=== PATIENT | female | born 1945 | race Caucasian/White ===

== ENCOUNTER → 2019-08-24 15:02 | Outpatient (BNVA) | payer MEDICARE, BC, SELFPAY | PROVIDERS: Family Provider Internal Medicine; PCP Internal Medicine; Referring Provider Internal Medicine Rheumatology; Visit Provider Internal Medicine Rheumatology | DX: M05.9 Rheumatoid arthritis with rheumatoid factor, unspecified (principal) | CPT/HCPCS: 82565; 84460; 85025; 85651; 86140 ==

== ENCOUNTER → 2019-08-27 09:21 | Outpatient (BNVA) | payer MEDICARE, BC, SELFPAY | PROVIDERS: Family Provider Internal Medicine; PCP Internal Medicine; Referring Provider Emergency Medicine; Visit Provider Internal Medicine Rheumatology | DX: M05.79 Rheumatoid arthritis with rheumatoid factor 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 or systems involvement (principal); Z79.52 Long term (current) use of systemic steroids; Z79.899 Other long term (current) drug therapy | CPT/HCPCS: 99214 ==

== ENCOUNTER 2019-10-26 08:14 | Outpatient (CLI) | payer MEDICARE, BC, SELFPAY ==
--- NOTE | 2019-10-26 08:19 | MM_ITS ---
WS: [id number] BILATERAL DIGITAL SCREENING MAMMOGRAPHY WITH CAD CLINICAL INFORMATION: SCREENING HISTORY: Screening mammogram. No current complaints. COMPARISON: None. TECHNIQUE: Bilateral CC and MLO views. FINDINGS: Scattered fibroglandular densities bilaterally. [facility] center calcifications right breast. Vascular c alcification. No suspicious focal mass, asymmetry, calcifications, or architectural distortion. No ev idence of malignancy. MM/[id number] IMPRESSION: BI-RADS: 2-Benign FOLLOW UP: 1 Year Follow-up Recommend return to annual screening mammography.
== END 2019-10-26 08:15 | disposition home or self-care (01) ==
LOC: RADSHAW 08:14
PROVIDERS: Family Provider Internal Medicine; PCP Internal Medicine; Visit Provider Internal Medicine
DX: Z12.31 Encounter for screening mammogram for malignant neoplasm of breast (principal)
CPT/HCPCS: 77067

== ENCOUNTER → 2019-12-31 13:23 | Outpatient (BNVA) | payer MEDICARE, BC, SELFPAY | PROVIDERS: Family Provider Internal Medicine; PCP Internal Medicine; Visit Provider Internal Medicine Rheumatology | DX: Z79.899 Other long term (current) drug therapy (principal); Z11.59 Encounter for screening for other viral diseases; Z11.1 Encounter for screening for respiratory tuberculosis; Z72.89 Other problems related to lifestyle | CPT/HCPCS: 36415; 80076; 82565; 85025; 85651; 86140; 86480; 86803 ==

== ENCOUNTER → 2020-02-25 12:56 | Outpatient (BNVA) | payer MEDICARE, SELFPAY | PROVIDERS: Family Provider Internal Medicine; PCP Internal Medicine; Visit Provider Internal Medicine Rheumatology | DX: M05.79 Rheumatoid arthritis with rheumatoid factor 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 or systems involvement (principal); Z79.899 Other long term (current) drug therapy | CPT/HCPCS: 99214 ==

== ENCOUNTER 2020-03-07 14:26 | Outpatient (CLI) | payer MEDICARE, BC, SELFPAY ==
--- NOTE | 2020-03-07 14:32 | XR_ITS ---
WS: [id number] SCREENING DEXA SCAN nap- Naturally Attached Parents CLINICAL INFORMATION: ASYMPTOMATIC POSTMENOPAUSAL STATUS COMPARISON: None. FINDINGS: The L1-L4 bone mineral density measures 1.116 g/cm2. This corresponds to a T score score of -0.5 and Z score of 1.2. Left femoral neck bone mineral density measures 0.989 g/cm2. This corresponds to a T score of -0.2 an d Z score of 1.6. Right femoral neck bone mineral density measures 0.956 g/cm2. This corresponds to a T score -0.4of an d Z score of 1.3. Mean femoral neck bone mineral density measures 0.972 g/cm2. This corresponds to a T score of -0.3 an d Z score of 1.4. XR/XR DEXA axial skeleton* [id number] IMPRESSION: Normal bone mineralization. Patient's FRAX calculated 10 year probability for major osteoporotic fracture i s 25.8 % and osteoporotic hip fracture is 8.2%.
== END 2020-03-07 14:27 | disposition home or self-care (01) ==
LOC: RADWPI 14:30
PROVIDERS: Family Provider Internal Medicine; PCP Internal Medicine; Visit Provider Internal Medicine
DX: Z78.0 Asymptomatic menopausal state (principal)
CPT/HCPCS: 77080

== ENCOUNTER → 2020-05-24 09:59 | Outpatient (BNVA) | payer MEDICARE, BC, SELFPAY | PROVIDERS: Family Provider Internal Medicine; PCP Internal Medicine; Visit Provider Internal Medicine Rheumatology | DX: Z79.899 Other long term (current) drug therapy (principal); M05.79 Rheumatoid arthritis with rheumatoid factor 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 or systems involvement | CPT/HCPCS: 36415; 80076; 82565; 85025; 85651; 86140 ==

== ENCOUNTER → 2020-07-04 11:51 | Outpatient (BNVA) | payer MEDICARE, BC, SELFPAY | PROVIDERS: Family Provider Internal Medicine; PCP Internal Medicine; Visit Provider Internal Medicine Rheumatology | DX: M05.79 Rheumatoid arthritis with rheumatoid factor 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 or systems involvement (principal); Z79.899 Other long term (current) drug therapy; Z87.891 Personal history of nicotine dependence | CPT/HCPCS: 99213 ==

== ENCOUNTER 2020-12-08 10:31 | Outpatient (CLI) | payer MEDICARE, BC, SELFPAY ==
--- NOTE | 2020-12-08 10:41 | MM_ITS ---
WS: [id number] BILATERAL SCREENING DIGITAL MAMMOGRAM WITH CAD HISTORY: SCREENING COMPARISON: 10/26/2019 Bilateral CC and MLO views submitted. Computer aided detection analyzed. Breast composition: There are scattered areas of fibroglandular density. No suspicious masses, microc alcifications or architectural distortion. Stable calcifications and fibroglandular pattern. MM/[id number] IMPRESSION: BI-RADS: 2-Benign FOLLOW UP: 1 Year Follow-up
== END 2020-12-08 10:32 | disposition home or self-care (01) ==
LOC: RADSHAW 10:39
PROVIDERS: PCP Internal Medicine; Visit Provider Internal Medicine
DX: Z12.31 Encounter for screening mammogram for malignant neoplasm of breast (principal)
CPT/HCPCS: 77067

== ENCOUNTER → 2021-01-02 13:20 | Outpatient (BNVA) | payer MEDICARE, BC, SELFPAY | PROVIDERS: PCP Internal Medicine; Visit Provider Internal Medicine Rheumatology | DX: M05.79 Rheumatoid arthritis with rheumatoid factor 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 or systems involvement (principal); Z79.899 Other long term (current) drug therapy; Z87.891 Personal history of nicotine dependence | CPT/HCPCS: 99214 ==

== ENCOUNTER 2021-02-03 09:34 | Outpatient (CLI) | payer MEDICARE, BC, SELFPAY ==
--- NOTE | 2021-02-03 09:50 | CT_ITS ---
WS: [id number] CT NECK WITH CONTRAST HISTORY: NECK MASS TECHNIQUE: Contiguous 5 mm axial images are performed through the neck with intravenous contrast. Sag ittal and coronal reformats are also submitted. All CT scans at [facility] use at least o ne of these dose optimization techniques: automated exposure control; mA and/or kV adjustment per pat ient size (includes targeted exams where dose is matched to clinical indication); or iterative recons truction. CONTRAST: CONTRAST: Omnipaque 300; 95 mL IV. DLP: 982.76 mGycm COMPARISON: None available. There are multiple small calcifications identified bilaterally in the palatine tonsils. No significan t enlargement of the tonsils. There is mild heterogeneity with a few cystic areas in the palatine ton sils. No adjacent inflammation. Otherwise no mass at the tongue base or in the oropharynx. Torus tubarius and fossa of Rosenmuller and parapharyngeal fat are normal. No significant lymphadenopathy is identified. Normal size thyroid. There are small subcentimeter nodules within each thyroid. Palpable marker is placed adjacent to the inferior RIGHT parotid gland. There is mild hypervascularit y and enhancement throughout the RIGHT parotid gland which is asymmetric to the LEFT. No discrete mas s is identified. Not a lot of adjacent inflammation but the RIGHT parotid is slightly larger than the LEFT. No osseous abnormalities. Visualized portions of the skull base demonstrate no abnormalities. Orbits and globes are within norm al limits. No soft tissue masses. Mild calcification in the intracranial extracranial carotid arterie s. Visualized paranasal sinuses and mastoid air cells are normal. Lung apices are clear. CT/CT neck w con* [id number] IMPRESSION: 1. Very mild enlargement with increased enhancement involving the RIGHT paroti d gland. No focal mass or adjacent adenopathy. Consider parotiditis. This may b e viral or bacterial or autoimmune immune in etiology. No mass identified. 2. Bilateral palatine tonsillitis with mild heterogeneity in the palatine tons ils. This is probably related to prior episodes of infection with calcification s developing in the crypts. Due to the mild heterogeneity in the tonsils consid er direct visualization to be sure there is no underlying early neoplasm. 3. No adenopathy. 4. Subcentimeter bilateral thyroid nodules.
[2021-02-03] MEDS: iodixanol 320 mg/mL 100mL Btl IV (10:15)
== END 2021-02-03 09:35 | disposition home or self-care (01) ==
PROVIDERS: PCP Internal Medicine; Visit Provider Internal Medicine
DX: R22.1 Localized swelling, mass and lump, neck (principal); E04.2 Nontoxic multinodular goiter; J03.90 Acute tonsillitis, unspecified
CPT/HCPCS: 70491; Q9967

== ENCOUNTER → 2021-04-03 13:49 | Outpatient (BNVA) | payer MEDICARE, BC, SELFPAY | PROVIDERS: PCP Internal Medicine; Visit Provider Internal Medicine Rheumatology | DX: M05.79 Rheumatoid arthritis with rheumatoid factor 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 or systems involvement (principal); Z79.899 Other long term (current) drug therapy; Z71.89 Other specified counseling | CPT/HCPCS: 36415; 80076; 82565; 85025; 86140 ==

== ENCOUNTER 2021-06-10 16:56 | Observation (INO) | payer MEDICARE, BC, SELFPAY ==
[2021-06-10 17:02] VITALS: BP 162/80; PULSE 80; RESP 22; O2SAT 97; BMI 25.7
--- NOTE | 2021-06-10 17:08 | CTR_ITS ---
PROCEDURE INFORMATION: Exam: CT Head Without Contrast Exam date and time: 06/10/2021 5:08 PM Age: 75 years old Clinical indication: Other: Weakness; Additional info: Stroke alert TECHNIQUE: Imaging protocol: Computed tomography of the head without contrast. Radiation optimization: All CT scans at this facility use at least one of these dose optimization techniques: automated exposure control; mA and/or kV adjustment per patient size (includes targeted exams where dose is matched to clinical indication); or iterative reconstruction. Other technique: STROKE PROTOCOL was implemented. COMPARISON: MR head wo con* [id number] 07/15/2018 9:03 AM RADIATION DOSE METRICS: Total DLP (mGy-cm): 790.53 FINDINGS: Brain: Mild diffuse cortical volume loss. Moderate hypodensities in supratentorial periventricular and subcortical white matter, consistent with microangiopathy. No intracranial hemorrhage. Cerebral ventricles: No ventriculomegaly. Paranasal sinuses: Visualized sinuses are unremarkable. No fluid levels. Mastoid air cells: Visualized mastoid air cells are well aerated. Vasculature: No hyperdense artery. Bones/joints: Unremarkable. No acute fracture. Soft tissues: Unremarkable. CT/CT head wo con* [id number] IMPRESSION: 1. No acute intracranial abnormality. ASSESSMENT: ASPECTS ([place] Stroke Program Early CT Score) is 10. Radiation Dose CTDIVOL = (mGy): DLP = 790.53 (mGy-cm)
--- NOTE | 2021-06-10 17:14 | ECG_ITS ---
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 Measurements Intervals [place] Rate: 81 P: 62 NV: 162 QRS: 31 QRSD: 96 T: 62 QT: 375 QTc: 437 Interpretive Statements SINUS RHYTHM WITH OCCASIONAL ECTOPIC PREMATURE COMPLEXES POSSIBLE LEFT ATRIAL ENLARGEMENT [-0.1mV P-WAVE IN V1/V2] ANTEROSEPTAL MYOCARDIAL INFARCTION , OF INDETERMINATE AGE [40+ ms Q WAVE IN V1-V4] Compared to ECG 05/20/2018 18:57:12 Ventricular premature complex(es) no longer present T-wave abnormality no longer present Possible ischemia no longer present Myocardial infarct finding still present Electronically Signed On 06-11-2021 0:27:25 CDT by Moses Posada M.D. [id number]
[2021-06-10 17:15] LABS: Glucose Point of Care 94 mg/dL (70-110)
--- NOTE | 2021-06-10 17:24 | ED_ITS ---
HPI - General Adult General: Chief complaint: Neuro Symptoms/Deficit Stated complaint: NEURO SX Time Seen by Provider: 06/10/21 16:58 History of Present Illness: HPI narrative: CC: L sided facial droop, slurring of speech and L sided weakness HPI: [75]yo patient w/ hx of HTN, prior CVA prsenting to the ED for acute transient L sided weakness, L facial droop and and slurring of speech since 11am. On arrival, patient's ymptoms have resolved Denies any chest pain, SOB, palpitations, /GI complaints. Patient is not on any anticoagulation. Onset: 11 am ago Duration: intermittent Location: home Severity: severe Review of Systems Narrative: Constitutional: No fever, no chills. HEENT: No vision changes CV: No chest pain, no palpitations PULM: No cough, no dyspnea. GI: No abdominal pain, no N/V/D. : No dysuria MSKEL: No edema SKIN: No new rashes, no lesions. NEURO: Transient L sided weakness/ L facial droop HEME: No visible bruises PSYCH: Normal mood PFSH ED PFSH: Medical History CAD (coronary artery disease) Dyslipidemia Encounter for screening for other viral diseases High risk medication use Immunization counseling Ischemic cardiomyopathy Myocardial infarction Rheumatoid arthritis with rheumatoid factor 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 or systems involvement Surgical History H/O bilateral cataract extraction H/O: hysterectomy Hx of cholecystectomy Stented coronary artery Family History Other Diabetes Family history of premature coronary artery disease Rheumatoid arthritis Denies family history of Chronic kidney disease (CKD) Systemic lupus erythematosus (SLE) in adult Cancer Hypertension Stroke Social History Smoking and tobacco status: former smoker Quit status (tobacco): has quit using tobacco Year quit tobacco: 2020 Former quit date comment: 0.5 PPD X 30 YEARS Alcohol intake: current History of recent travel: Yes (07/26-08/05) Physical Exam Narrative: EXAM NARRATIVE: Head: Atraumatic Eyes: PERRL, conjunctiva without injection ENT: Mucous membrane moist NECK: Supple without lymphadenopathy LUNGS: CTA CV: RRR ABDOMEN: Soft, nontender EXTREMITY: Normal ROM SKIN: No rash or erythema NEURO: NIHSS: 1. Level of Consciousness A) LOC Responsiveness 0 B) LOC Questions 0 C) LOC Commands 0 2. Horizontal Eye Movement 0 3. Visual field test 0 4. Facial Palsy 0 5. Motor Arm 0 6. Motor Leg 0 7. Limb Ataxia 0 9. Language 0 10. Speech 0 11. Extinction and Inattention 0 PSYCH: Normal mood and affect. Course Vital Signs: Vital signs: Vital Signs Temperature 98.1 F 06/11/21 12:00 Pulse Rate 61 06/11/21 12:00 Respiratory Rate 16 06/11/21 12:00 Blood Pressure 122/67 06/11/21 12:00 Pulse Oximetry 97 06/11/21 12:00 MDM - General Adult MDM Narrative: Medical decision making narrative: [75]yo patient w/ pMH of DM, prior CVA BIBA for concerns of transient focal neurological deficit including L sided weakness/L facial droop/L slurring of speech. Presentation concerning for possible ischemic stroke requiring workup. Given History and Exam I have lower suspicion for infectious etiology, neurologic changes secondary to toxicologic ingestion, seizure, complex migraine. Workup include: POC glucose, CBC, BMP, LFTs, Troponin, PT/INR, PTT, Type and Screen. Other Diagnostics: ECG, CT brain EKG without evidence of STEMI or ischemia, fingerstick BS not hypoglycemic, and clinical picture does not suggest other stroke mimic. Plan to workup for TIA Lab Findings and workup [6:02] On reassessment, patient continues to remain symptom free. Disposition: Admission to Neurology with MRI brain/MRA head/neck Lab Data: Labs: Lab Results 06/10/21 06/10/21 06/10/21 10: 17:12 17:28 WBC 7.9 10^3/uL 10^3/ uL (4.0-10.0) RBC 4.56 10^6/uL 10^6 /uL (4.1-5.3) Hgb 13.7 g/dL g/dL (11.5-15.3) Hct 42.2 % % (37.0-47.0) MCV 92.5 fl fl (81-99) MCH 30.0 pg pg (28.0-34.0) MCHC 32.5 g/dL g/dL (30.0-36.0) RDW 13.2 % % (12.1-15.1) Plt Count 280 10^3/cmm 10^3 /cmm (130-400) MPV 9.9 fL fL (7.4-10.4) Neut % (Auto) 54.7 % % Lymph % (Auto) 35.2 % % Taliaferro % (Auto) 7.4 % % Eos % (Auto) 1.9 % % Baso % (Auto) 0.5 % % Neut # (Auto) 4.34 10^3/uL 10^3 /uL (1.8-7.7) Lymph # (Auto) 2.8 10^3/uL 10^3/ uL (0.8-4.8) Taliaferro # (Auto) 0.6 10^3/uL 10^3/ uL (0.2-0.9) Eos # (Auto) 0.2 10^3/uL 10^3/ uL (0.0-0.8) Baso # (Auto) 0.0 10^3/uL 10^3/ uL (0.0-0.1) Nucleated RBC % (a uto) 0 % % Nucleated RBCs # 0.0 /100WBC /100W BC PT INR APTT Sodium Potassium Chloride Carbon Dioxide Anion Gap BUN Creatinine GFR Calculation Glucose POC Glucose 94 mg/dL mg/dL (70-110) Calculated Osmolal ity Calcium Total Bilirubin AST ALT Alkaline Phosphata se Total Protein Albumin Globulin Urine Color Yellow (Yellow) Urine Appearance Clear (CLEAR) Urine pH 5 (5-7) Ur Specific Gravit y 1.005 (1.005-1.030) Urine Protein Neg (Negative) Urine Glucose (UA) Norm (Normal) Urine Ketones Negative (Negative) Urine Blood Trace H (Negative) Urine Nitrate Negative (Negative) Urine Bilirubin Neg (Negative) Urine Urobilinogen Norm mg/dL mg/dL (Negative) Ur Leukocyte Sherry ase Negative (Negative) Urine RBC 0-4 /hpf H /hpf (0-2) Urine WBC 0-4 /hpf H /hpf (0-5) Ur Squamous Epith Cells 0-4 /hpf H /hpf (0-5) Amorphous Sediment Not Reportable Urine Bacteria Trace /hpf /hpf (NONE) 06/10/21 06/10/21 17:28 17:28 WBC RBC Hgb Hct MCV MCH MCHC RDW Plt Count MPV Neut % (Auto) Lymph % (Auto) Taliaferro % (Auto) Eos % (Auto) Baso % (Auto) Neut # (Auto) Lymph # (Auto) Taliaferro # (Auto) Eos # (Auto) Baso # (Auto) Nucleated RBC % (a uto) Nucleated RBCs # PT 12.80 SECONDS SEC ONDS (12.1-14.9) INR 0.94 (0.8-1.2) APTT 32.3 SECONDS SECO NDS (23.9-36.7) Sodium 140 mmol/L mmol/L (136-145) Potassium 4.0 mmol/L mmol/L (3.5-5.1) Chloride 104 mmol/L mmol/L (98-107) Carbon Dioxide 24 mmol/L mmol/L (22-29) Anion Gap 16.0 (5-19) BUN 16 mg/dL mg/dL (8-23) Creatinine 0.7 mg/dL mg/dL (0.5-0.9) GFR Calculation Not Reportable Glucose 85 mg/dL mg/dL (65-115) POC Glucose Calculated Osmolal ity 290 mOsm/kg mOsm/ kg (285-295) Calcium 9.0 mg/dL mg/dL (8.5-10.5) Total Bilirubin 0.2 mg/dL mg/dL (0.15-1.2) AST 24 U/L U/L (0-32) ALT 23 U/L U/L (0-33) Alkaline Phosphata se 52 IU/L IU/L (35-105) Total Protein 7.2 g/dL g/dL (6.6-8.7) Albumin 4.3 g/dL g/dL (3.5-5.2) Globulin 2.9 g/dL g/dL (1.3-4.6) Urine Color Urine Appearance Urine pH Ur Specific Gravit y Urine Protein Urine Glucose (UA) Urine Ketones Urine Blood Urine Nitrate Urine Bilirubin Urine Urobilinogen Ur Leukocyte Sherry ase Urine RBC Urine WBC Ur Squamous Epith Cells Amorphous Sediment Urine Bacteria Discharge Plan Discharge Patient Disposition: Admitted As Inpatient Admit Provider: Jairo Nieves Clinical Impression: Brain TIA Condition: Stable Discharge Diet: Cardiac Discharge Activity: Resume usual activity Coding Level of Care Code ED Lumber Racker for Richie Ashraf
[2021-06-10 17:32] VITALS: BP 169/59; PULSE 77; RESP 18; TEMP 36.3; O2SAT 97
[2021-06-10] MEDS: aspirin 325 mg Tablet PO (17:41)
[2021-06-10 17:51] LABS: INR 0.94 (0.8-1.2)
[2021-06-10 17:52] LABS: Partial Thromboplastin Time 32.3 SECONDS (23.9-36.7)
[2021-06-10 17:57] VITALS: BP 163/57; PULSE 78; RESP 18; TEMP 36.9; O2SAT 98
[2021-06-10 17:58] LABS: Basophils % 0.5 %; Eosinophils # 0.2 10^3/uL (0.0-0.8); Eosinophils % 1.9 %; Hematocrit 42.2 % (37.0-47.0); Hemoglobin 13.7 g/dL (11.5-15.3); Lymphocytes # 2.8 10^3/uL (0.8-4.8); Lymphocytes % 35.2 %; Mean Corpuscular HGB Conc 32.5 g/dL (30.0-36.0); Mean Corpuscular Volume 92.5 fl (81-99); Mean Platelet Volume 9.9 fL (7.4-10.4); Monocytes # 0.6 10^3/uL (0.2-0.9); Monocytes % 7.4 %; Neutrophils # 4.34 10^3/uL (1.8-7.7); Neutrophils % 54.7 %; Nucleated Red Blood Cells % 0 %; Platelet Count 280 10^3/cmm (130-400); Red Blood Count 4.56 10^6/uL (4.1-5.3); Red Cell Distribution Width 13.2 % (12.1-15.1); White Blood Count 7.9 10^3/uL (4.0-10.0)
[2021-06-10 18:20] LABS: Add Urine Microscopic? YES; Bilirubin Urine Neg (Negative); Blood Urine Trace (Negative); Glucose Urine UA Norm (Normal); Ketones Urine Negative (Negative); Leukocyte Esterase Urine Negative (Negative); Nitrate Urine Negative (Negative); Protein Urine Neg (Negative); Specific Gravity, Urine 1.005 (1.005-1.030); Urine Appearance Clear (CLEAR); Urine Color Yellow (Yellow); Urobilinogen Urine Norm (Negative); pH Urine 5 (5-7)
[2021-06-10 18:21] LABS: RBC Urine 0-4 /hpf (0-2); WBC Urine 0-4 /hpf (0-5)
[2021-06-10 18:22] LABS: Bacteria Urine TRACE /hpf; Squamous Epithelial Cell Urine 0-4 /hpf (0-5)
[2021-06-10 18:23] LABS: Add Urine Culture? No
[2021-06-10 18:29] LABS: Alanine Aminotransferase 23 U/L (0-33); Albumin Level 4.3 g/dL (3.5-5.2); Alkaline Phosphatase 52 IU/L (35-105); Aspartate Amino Transferase 24 U/L (0-32); Blood Urea Nitrogen 16 mg/dL (8-23); Carbon Dioxide 24 mmol/L (22-29); Chloride 104 mmol/L (98-107); Creatinine Clr Calc Pharmacy 54.5402; Globulin 2.9 g/dL (1.3-4.6); Glucose 85 mg/dL (65-115); Osmolality Calculated 290 mOsm/kg (285-295); Sodium 140 mmol/L (136-145); Total Bilirubin 0.2 mg/dL (0.15-1.2); Total Protein 7.2 g/dL (6.6-8.7)
--- NOTE | 2021-06-10 18:29 | PC.NURSE ---
Called and gave report to Bruna VASQUES, pt going to 253 bed 2.
--- NOTE | 2021-06-10 18:44 | P.HP_ITS ---
Providers/Chief Complaint Admitting Physician: Jairo Nieves MD Primary Care Provider: Shannan Rios MD Chief Complaint: NEURO SX History of Present Illness Evonne Richard is a 75 year old female with a past medical history of CVA status post TPA in 2018, CAD, rheumatoid arthritis, hypothyroidism, who presents to [facility] due to complaints of left facial drooping, slurring of her words, left-sided weakness. Patient daughter tells me that about 1130, this morning, she noticed that her mom had a slight left facial droop, she was also favoring her left side, a bit weak on the left side, stumbling, her mother told her that she was feeling fine, and that there was nothing wrong with her, daughter left, came back at roughly 2 30-3, and noticed that her mom had worsening left facial droop, slurring of her words, left-sided deficits. Patient tells me that she had noticed anything wrong with her, no chest pain, palpitations, she hadn't noticed any facial droop, no slurring of words, she does tell me that she did feel slightly weak on the left side, no paresthesias, no nausea, no vomiting, headache, blurry vision. On arrival her NIH stroke scale was 1, was out of the TPA window, neurology was called, advised for inpatient mission. Currently patient is alert oriented x3, follows all commands, no focal neurologic deficits, initial CT of the head did not show acute CVA, hospitalist team was called for admission Review of Systems Const: Denies: fever(s), chills, fatigue or malaise Eyes: Denies: change in vision or blurry vision ENMT: Denies: nasal congestion Card: Denies: chest pain, palpitations, irregular heart rhythm, edema, lightheadedness, syncope, pre-syncope or dyspnea on exertion Resp: Denies: dyspnea, productive cough, non-productive cough or wheezing GI: Denies: abdominal pain, nausea, vomiting, hematemesis, diarrhea, constipation, hematochezia or melena : Denies: flank pain, dysuria or urinary frequency Musc: Denies: neck pain or back pain Skin/Breast: Denies: rash Neuro: Reports: weakness in extremities, lack of coordination, difficulty walking and Slurred speech present; Denies: headache(s), numbness in extremities, dizziness or vertigo Psych: Denies: anxiety or depression Endo: Denies: polyuria or polydipsia Medications/Allergies Home Medications Medication Instructions Recorded Confirmed Last Taken Type cholecalciferol (vitamin D3) 50 2,000 unit PO DAILY tab 08/21/19 06/10/21 06/09/21 History mcg (2,000 unit) tablet multivit with min-folic 1 tab PO DAILY tab 08/21/19 06/10/21 06/09/21 History acid-lutein 200 mcg-137.5 mcg chewable tablet benazepril 10 mg tablet 10 mg PO DAILY #90 tab 06/01/20 06/10/21 06/09/21 Rx levothyroxine 25 mcg tablet 25 mcg PO DAILY 07/04/20 06/10/21 06/09/21 History aspirin 325 mg tablet 325 mg PO DAILY #90 tab 12/22/20 06/10/21 06/09/21 Rx metoprolol succinate 25 mg 25 mg PO DAILY #90 tab 12/22/20 06/10/21 06/09/21 Rx tablet,extended release 24 hr nitroglycerin 0.4 mg sublingual 0.4 mg SUBLINGUAL Q5M PRN #25 tab 12/22/20 06/10/21 Unknown Rx tablet folic acid 1 mg PO DAILY 06/10/21 06/10/21 06/09/21 History methotrexate sodium 10 mg PO Q7D 06/10/21 06/10/21 06/04/21 History simvastatin 40 mg PO BEDTIME 06/10/21 06/10/21 06/09/21 History Allergies Allergy/AdvReac Type Severity Reaction Status Date / Time No Known Allergies Allergy Verified 02/09/21 08:56 PFSH Acute PFSH: Medical History CAD (coronary artery disease) Dyslipidemia Encounter for screening for other viral diseases High risk medication use Immunization counseling Ischemic cardiomyopathy Myocardial infarction Rheumatoid arthritis with rheumatoid factor 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 or systems involvement Surgical History H/O bilateral cataract extraction H/O: hysterectomy Hx of cholecystectomy Stented coronary artery Family History Other Diabetes Family history of premature coronary artery disease Rheumatoid arthritis Denies family history of Chronic kidney disease (CKD) Systemic lupus erythematosus (SLE) in adult Cancer Hypertension Stroke Social History Smoking and tobacco status: former smoker Quit status (tobacco): has quit using tobacco Year quit tobacco: 2020 Former quit date comment: 0.5 PPD X 30 YEARS Alcohol intake: current History of recent travel: Yes (07/26-08/05) Vitals/I&O/Wt Last Vital Signs Temp 98.4 F 06/10/21 17:57 Pulse 78 06/10/21 17:57 Resp 18 06/10/21 17:57 BP 163/57 06/10/21 17:57 Pulse Ox 98 06/10/21 17:57 Weight last 48 hrs Weight 65.771 kg Physical Exam Const: COMMON NORMALS: no acute distress and patient oriented x3 GENERAL APPEARANCE: cooperative and comfortable HENMT: COMMON NORMALS: normocephalic HEAD & SCALP: normocephalic Eye: COMMON NORMALS: Equal, round and reactive pupils present and EOMs intact bilaterally GENERAL EYE: appearance normal, both eyes and all related structures PUPIL: Yes Equal, round and reactive pupils present Neck/C-Spine: COMMON NORMALS: full ROM and no lymphadenopathy THYROID: Thyroid normal Lymph: LYMPHATIC: no lymphadenopathy noted Resp: COMMON NORMALS: normal respiratory effort, No retractions, No use of accessory muscles and clear to auscultation bilaterally AUSCULTATION: clear to auscultation bilaterally Cardio: COMMON NORMALS: regular rate, regular rhythm, S1 normal heart sound present, S2 normal heart sound present, No gallops present (Cardio), No clicks present (Cardio) and No murmurs present (Cardio) RATE: regular rate RHYTHM: regular rhythm HEART SOUNDS: S1 normal heart sound present and S2 normal heart sound present GI: COMMON NORMALS: Normal to inspection, nondistended, normoactive bowel sounds present, Soft to palpation, non-tender and No hepatosplenomegaly present PALPATION: Yes Soft to palpation and Yes No hepatosplenomegaly present Extremity: COMMON NORMALS: normal to inspection, full ROM and no pedal edema Neuro: COMMON NORMALS: patient oriented x3, CN's II-XII intact bilaterally, moves all extremities and no focal motor deficits Psych: COMMON NORMALS: mental status grossly normal, Normal thought process present and cooperative THOUGHT PROCESS: Normal thought process present Data : 06/10/21 17:28 06/10/21 17:28 A&P Assessment and plan (1) Brain TIA: -NIH stroke scale 1, out of TPA window Plan -Admit to general medical floors -IV fluids -Aspirin, statin, Plavix -NIH stroke scale, neurochecks -PT OT -Cardiac echo, carotid artery ultrasound -Telemetry monitoring -Follow UA, TSH, urinalysis -DNR/DNI -Lovenox for DVT prophylaxis Status: Acute (2) Hypertension: Status: Acute (3) Dyslipidemia: Status: Acute (4) Stented coronary artery: Status: Acute (5) Ischemic cardiomyopathy: Status: Acute (6) CAD (coronary artery disease): Status: Acute (7) Rheumatoid arthritis with rheumatoid factor 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 or systems involvement: Status: Acute Attestations Medical Necessity Statement*: Patient requires hospitalization, outpatient with observation, for TIA Coding Level of Care Code Acute Instrument Installer for [facility] Diagnoses Brain TIA G45.9 Hypertension I10 Dyslipidemia E78.5 Stented coronary artery Z95.5 Ischemic cardiomyopathy I25.5 CAD (coronary artery disease) I25.10 Rheumatoid arthritis with rheumatoid factor 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 or systems involvement M05.79
[2021-06-10 19:24] VITALS: BP 138/70; PULSE 86; RESP 18; TEMP 37; O2SAT 97
[2021-06-10 20:00] VITALS: BP 152/83; PULSE 86; RESP 18; TEMP 36.9; O2SAT 98
[2021-06-10 20:12] VITALS: BMI 25.7
[2021-06-10] MEDS: enoxaparin 40 mg/0.4 mL Syringe SUBCUT (20:28)
[2021-06-10] MEDS: sodium chloride 0.9% 1,000 ML 75 ML IV (20:29)
[2021-06-10] MEDS: atorvastatin 40 mg Tablet 20 MG PO (20:29)
[2021-06-11] VITALS: BP 121/68; PULSE 67; RESP 18; TEMP 36.9; O2SAT 97
[2021-06-11 03:51] VITALS: BP 114/64; PULSE 64; RESP 18; TEMP 36.8; O2SAT 96
[2021-06-11 05:07] LABS: Basophils % 0.3 %; Eosinophils # 0.2 10^3/uL (0.0-0.8); Eosinophils % 2.2 %; Hematocrit 37.7 % (37.0-47.0); Hemoglobin 12.2 g/dL (11.5-15.3); Lymphocytes # 2.5 10^3/uL (0.8-4.8); Mean Corpuscular HGB Conc 32.4 g/dL (30.0-36.0); Mean Corpuscular Hemoglobin 30.2 pg (28.0-34.0); Mean Corpuscular Volume 93.3 fl (81-99); Mean Platelet Volume 10.8 fL (7.4-10.4); Monocytes # 0.6 10^3/uL (0.2-0.9); Monocytes % 8.4 %; Neutrophils # 3.45 10^3/uL (1.8-7.7); Neutrophils % 51.8 %; Nucleated Red Blood Cells % 0 %; Platelet Count 254 10^3/cmm (130-400); Red Blood Count 4.04 10^6/uL (4.1-5.3); Red Cell Distribution Width 13.2 % (12.1-15.1); White Blood Count 6.7 10^3/uL (4.0-10.0)
[2021-06-11 05:26] LABS: Estmated Average Glucose 114; Hemoglobin A1C 5.6 % (4.0-6.0)
[2021-06-11 05:33] LABS: Chol HDL Ratio 3.26 mg/dL (0.0-4.40); Cholesterol 127 mg/dL (0-200); HDL Cholesterol 39 mg/dL (60-100); LDL Cholesterol Calculated 69 mg/dL (50-129); LDL HDL Ratio 1.77 RATIO (0.00-3.22); Triglycerides 97 mg/dL (0-150)
[2021-06-11 05:42] LABS: Alanine Aminotransferase 23 U/L (0-33); Albumin Level 3.6 g/dL (3.5-5.2); Alkaline Phosphatase 42 IU/L (35-105); Anion Gap 13.9 (5-19); Aspartate Amino Transferase 30 U/L (0-32); Blood Urea Nitrogen 16 mg/dL (8-23); Calcium 8.4 mg/dL (8.5-10.5); Carbon Dioxide 23 mmol/L (22-29); Chloride 107 mmol/L (98-107); Creatinine Clr Calc Pharmacy 54.5402; Globulin 2.4 g/dL (1.3-4.6); Glucose 74 mg/dL (65-115); Magnesium 1.7 mg/dL (1.7-2.3); Osmolality Calculated 290 mOsm/kg (285-295); Phosphorus 3.1 mg/dL (2.5-4.5); Potassium 3.9 mmol/L (3.5-5.1); Sodium 140 mmol/L (136-145); Total Bilirubin 0.4 mg/dL (0.15-1.2)
--- NOTE | 2021-06-11 06:00 | USCV_ITS ---
Evonne Richard Age: 75 Gender: F : 1945 Exam Date: 06/11/2021 06:35 Ordering Phys: Jairo Nieves MD Technologist: Melida Farah [place] [facility] [place]: TIA BP: 114 / 64 HR: 66 Rhythm: Sinus Technical Quality: Adequate MEASUREMENTS (Male / Female) Normal Values 2D ECHO LV Diastolic Diameter PLAX 4.6 cm 4.2 - 5.9 / 3.9 - 5.3 cm LV Systolic Diameter PLAX 3.7 cm IVS Diastolic Thickness 1.0 cm 0.6 - 1.0 / 0.6 - 0.9 cm IVS Systolic Thickness 1.2 cm LVPW Diastolic Thickness 1.3 cm 0.6 - 1.0 / 0.6 - 0.9 cm LVPW Systolic Thickness 1.8 cm LVOT Diameter 2.0 cm LV Ejection Fraction 2D Teich 40.6 % LV Ejection Fraction MOD 2C 48.8 % LV Ejection Fraction 2C AL 48.6 % LA Diameter 2.8 cm LA Width 3.9 cm LA Height 5.1 cm RA Width 3.1 cm RA Height 4.8 cm Aorta at Sinotubular Diameter 2.3 cm M-MODE Aortic Annulus Diameter 2.5 cm LA Ao Ratio MM 1.2 MV E Point Septal Separation 1.0 cm DOPPLER AV Peak Velocity 142.0 cm/s LVOT Peak Velocity 71.0 cm/s AV Area Cont Eq vti 1.3 cm squared AV Area Cont Eq pk 1.6 cm squared MV Peak Velocity 99.0 cm/s MV Area PHT 3.9 cm squared Mitral E to A Ratio 1.8 MV E' Velocity 54.0 cm/s Mitral E to MV E' Ratio 12.9 Mitral E to LV E' Lateral Ratio 10.7 Mitral E to LV E' Septal Ratio 16.6 TR Peak Velocity 239.0 cm/s TR Peak Gradient 22.8 mmHg Right Atrial Pressure 3.0 mmHg Pulmonary Artery Systolic Pressu 25.8 mmHg PV Peak Velocity 72.0 cm/s RV Acceleration Time 0.1 s RV Ejection Time 0.3 s RV AcT/ET 0.3 FINDINGS Left Ventricle Diffuse hypokinesia left ventricle with almost akinetic LV apex. Echodensity in the LV apex, suggestive of organized thrombus. Overall ejection fraction around 45%.Grade III/IV diastolic dysfunction (restrictive filling pattern), severely elevated filling pressures. Right Ventricle The right ventricle is normal in size and function. Right Atrium The right atrium is normal in size. Left Atrium Mildly increased left atrial size. Mitral Valve Thickened mitral valve. Mild-moderate mitral valve regurgitation. Aortic Valve Thickened aortic valve. Trace aortic valve regurgitation. Tricuspid Valve Mild tricuspid valve regurgitation. Estimated pulmonary artery peak systolic pressure 26 mmHg Pulmonic Valve Structurally normal pulmonic valve. Pericardium Normal pericardium without effusion. Aorta Normal aortic annulus size. CONCLUSIONS Normal LV size with diminished ejection fraction of 45%. Wall motion normalities as mentioned above. Echodensity in the LV apex, suggestive of organized thrombus. Grade III/IV diastolic dysfunction (restrictive filling pattern), severely elevated filling pressures. Mildly increased left atrial size. Thickened mitral valve. Mild-moderate mitral valve regurgitation. Thickened aortic valve. Trace aortic valve regurgitation. Mild tricuspid valve regurgitation. Estimated pulmonary artery peak systolic pressure 26 mmHg Because of the differences in technical quality, comparison with the previous study from 05/21/2018 is difficult. However it appears to me that there is worsening of the LV systolic function. The LV apex was not visualized well in the previous study. Dr Piedad Pascal MD FAC (Electronically Signed) Final Date: 11 June 2021 16:53 S
--- NOTE | 2021-06-11 06:00 | USCV_ITS ---
Evonne Richard Age: 75 Gender: F : 1945 Exam Date: 06/11/2021 06:55 Ordering Phys: Jairo Nieves MD Technologist: Melida Farah Exam Location: [facility] – [place] Indication: TIA Risk Factors: Previous Vascular Surgery: Right Brachial BP: / Left Brachial BP: / Right Left Velocity (cm/s) Spectral Plaque Velocity (cm/s) Spectral Plaque Syst/Diast Broadening Syst/Diast Broadening 79.20/ 22.50 Prox CCA 69.70 / 17.10 87.80/ 19.40 Mid CCA 61.50 / 16.20 83.90/ 25.60 Distal CCA 76.00 / 18.80 122.30/39.40 Prox ICA 57.30 / 14.50 144.60/39.40 Mid ICA 88.90 / 28.20 142.00/25.00 Distal ICA 123.50/ 38.60 134.00 ECA 70.10 1.65 ICA/CCA 1.62 Antegrade Vertebral Antegrade 43.50/ 14.80 cm/s 48.40/ 15.90 cm/s Tri Subclavian Tri 219.2 203.3 0 0 FINDINGS Moderate heterogeneous plaques at the bifurcation and proximal internal carotid artery on the right side Mild to moderate intravenous plaques of the left bifurcation and proximal internal carotid artery Antegrade flow in the vertebral arteries bilaterally Normal Doppler flow velocities in the external carotid arteries bilaterally Normal Doppler flow pattern in the subclavian arteries bilaterally CONCLUSIONS Moderate heterogeneous plaques at the bifurcation and proximal internal carotid artery on the right side with Doppler features suggestive of 50 to 69% stenosis. Mild to moderate intravenous plaques of the left bifurcation and proximal internal carotid artery with velocity elevation, suggestive of less than 50% stenosis . No significant stenosis in the external carotid, vertebral and subclavian arteries bilaterally, based on the above findings. No similar previous studies are available for comparison Dr Piedad Pascal MD [facility] (Electronically Signed) Final Date: 11 June 2021 16:59 S
[2021-06-11 07:43] VITALS: BP 136/66; PULSE 63; RESP 15; TEMP 36.4; O2SAT 96
[2021-06-11] MEDS: metoprolol succinate ER (24 HR) 25 mg Tablet PO (08:48)
[2021-06-11] MEDS: aspirin 81 mg EC Tablet PO (08:48)
[2021-06-11] MEDS: folic acid 1 mg Tablet PO (08:48)
[2021-06-11] MEDS: pantoprazole DR 40 mg Tablet PO (08:48)
[2021-06-11] MEDS: cholecalciferol (vitamin D3) 1,000 unit Tablet 2000 UNIT PO (08:48)
[2021-06-11] MEDS: levothyroxine 25 mcg Tablet PO (08:48)
[2021-06-11] MEDS: clopidogrel 75 mg Tablet PO (08:48)
[2021-06-11] MEDS: lisinopril 10 mg Tablet PO (08:48)
[2021-06-11] MEDS: sodium chloride 0.9% 1,000 ML 75 ML IV (08:49)
--- NOTE | 2021-06-11 10:24 | CTR_ITS ---
PROCEDURE INFORMATION: Exam: CT Angiography Head With Contrast, Arteriography Exam date and time: 06/11/2021 10:24 AM Age: 75 years old Clinical indication: Other: CVA TECHNIQUE: Imaging protocol: Computed tomography angiography of the head with contrast. Exam focused on the arteries. 3D rendering (Not supervised by radiologist): MIP and/or 3D reconstructed images were created by the technologist. Total images: 827 Radiation optimization: All CT scans at this facility use at least one of these dose optimization techniques: automated exposure control; mA and/or kV adjustment per patient size (includes targeted exams where dose is matched to clinical indication); or iterative reconstruction. Contrast material: OMNI 350; Contrast volume: 95 ml; Contrast route: INTRAVENOUS (IV); COMPARISON: CTA Head/Neck [id number] 05/20/2018 6:40 PM RADIATION DOSE METRICS: Total DLP (mGy-cm): 1950.43 FINDINGS: ANTERIOR CIRCULATION: Right internal carotid artery: Unremarkable. Intracranial segment is patent with no significant stenosis. No aneurysm. Right middle cerebral artery: Unremarkable. No occlusion or significant stenosis. No aneurysm. Right anterior cerebral artery: Unremarkable. No occlusion or significant stenosis. No aneurysm. Left internal carotid artery: Unremarkable. Intracranial segment is patent with no significant stenosis. No aneurysm. Left middle cerebral artery: Unremarkable. No occlusion or significant stenosis. No aneurysm. Left anterior cerebral artery: Unremarkable. No occlusion or significant stenosis. No aneurysm. POSTERIOR CIRCULATION: Right vertebral artery: Unremarkable. No occlusion or significant stenosis. No aneurysm. Left vertebral artery: Unremarkable. No occlusion or significant stenosis. No aneurysm. Basilar artery: Unremarkable. No occlusion or significant stenosis. No aneurysm. Right posterior cerebral artery: Unremarkable. No occlusion or significant stenosis. No aneurysm. Left posterior cerebral artery: Unremarkable. No occlusion or significant stenosis. No aneurysm. Brain: Global brain atrophy and chronic white matter ischemic changes are present. Cerebral ventricles: Ventricles are appropriate in size for degree of atrophy. Bones/joints: Unremarkable. No acute fracture. Soft tissues: Unremarkable. IMPRESSION: No large vessel stenosis or occlusion. PROCEDURE INFORMATION: Exam: CT Angiography Neck With Contrast Exam date and time: 06/11/2021 10:24 AM Age: 75 years old Clinical indication: Other: CVA TECHNIQUE: Imaging protocol: Computed tomography angiography of the neck with contrast. 3D rendering (Not supervised by radiologist): MIP and/or 3D reconstructed images were created by the technologist. Radiation optimization: All CT scans at this facility use at least one of these dose optimization techniques: automated exposure control; mA and/or kV adjustment per patient size (includes targeted exams where dose is matched to clinical indication); or iterative reconstruction. Contrast material: OMNI 350; Contrast volume: 95 ml; Contrast route: INTRAVENOUS (IV); COMPARISON: CTA Head/Neck [id number] 05/20/2018 6:40 PM RADIATION DOSE METRICS: Total DLP (mGy-cm): 1950.43 FINDINGS: Atherosclerotic [place]: C5-7 Degenerative disc disease with disc space narrowing and osteophyte formation. Right common carotid artery: No stenosis. No dissection or occlusion. Right internal carotid artery: Calcified atherosclerotic plaque is noted at the carotid bifurcations bilaterally. Moderate stenosis at the origin of the right ICA secondary to calcified atherosclerotic plaque. Right external carotid artery: No occlusion or stenosis of the origin. Left common carotid artery: No stenosis. No dissection or occlusion. Left internal carotid artery: Mild stenosis at the origin of the left ICA secondary to calcified atherosclerotic plaque. Left external carotid artery: No occlusion or stenosis of the origin. Right vertebral artery: No stenosis. No dissection or occlusion. Left vertebral artery: No stenosis. No dissection or occlusion. Aorta: Moderate atherosclerotic disease is evident. Soft tissues: Normal. No significant soft tissue swelling. Bones/joints: No acute fracture. Lungs: Moderate centrilobular emphysematous changes are present. CT/CT angio headneck* [id number] IMPRESSION: 1. Moderate stenosis at the origin of the right ICA secondary to calcified atherosclerotic plaque. 2. Mild stenosis at the origin of the left ICA secondary to calcified atherosclerotic plaque. REFERENCES: NASCET CRITERIA. The degree of internal carotid artery stenosis is based on NASCET criteria. Normal is no stenosis. Mild is less than 50% stenosis. Moderate is 50-69% stenosis. Severe is 70% to 99% stenosis. Total occlusion is no detectable patent lumen. Radiation Dose CTDIVOL = (mGy): DLP = 1950.43~1950.43 (mGy-cm)
--- NOTE | 2021-06-11 10:26 | P.DS_ITS ---
Discharge Providers Date of Admission: 06/10/21 17:56 Date of Discharge: June 11, 2021 Attending Provider at Admission: Jairo Nieves MD Attending Provider at Discharge: Jairo Nieves MD Primary Care Provider: Shannan Rios MD Diagnoses at Discharge Discharge Diagnosis (1) Brain TIA: Status: Acute (2) Hypertension: Status: Acute (3) Dyslipidemia: Status: Acute (4) Stented coronary artery: Status: Acute (5) Ischemic cardiomyopathy: Status: Acute (6) CAD (coronary artery disease): Status: Acute (7) Rheumatoid arthritis with rheumatoid factor 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 or systems involvement: Status: Acute Reason for Visit Reason for Visit: NEURO SX Hospital Course Hospital Course Evonne Richard is a 75 year old female with a past medical history of CVA status post TPA in 2018, CAD, rheumatoid arthritis, hypothyroidism, who presents to [facility] due to complaints of left facial drooping, slurring of her words, left-sided weakness. Patient was admitted to [facility] for TIA, NIH stroke scale was 1, out of TPA window, no focal neurologic deficits, no slurring of words, no facial droop during evaluation, CT of the head no acute stroke, no intracranial bleed, CTA head and neck 1. Moderate stenosis at the origin of the right ICA secondary to calcified atherosclerotic plaque. 2. Mild stenosis at the origin of the left ICA secondary to calcified atherosclerotic plaque. Patient was managed with aspirin, statin, Plavix during her hospitalization, IV fluids, clinically monitored. Patient did not have any recurrent TIA-like symptoms. Discharged home on aspirin, Plavix for 21 days, followed by aspirin 325 mg daily with close follow-up with neurology as outpatient. She was advised if she were to have recurrent strokelike symptoms please call 911 or go to the emergency room. Physical Exam Const: COMMON NORMALS: no acute distress and patient oriented x3 HENMT: COMMON NORMALS: normocephalic HEAD & SCALP: normocephalic Resp: COMMON NORMALS: normal respiratory effort, No retractions, No use of accessory muscles and clear to auscultation bilaterally AUSCULTATION: clear to auscultation bilaterally Cardio: COMMON NORMALS: regular rate, regular rhythm, S1 normal heart sound present and S2 normal heart sound present RATE: regular rate RHYTHM: regular rhythm HEART SOUNDS: S1 normal heart sound present and S2 normal heart sound present GI: COMMON NORMALS: Normal to inspection, nondistended, normoactive bowel sounds present, Soft to palpation, non-tender and No hepatosplenomegaly present PALPATION: Yes Soft to palpation and Yes No hepatosplenomegaly present Extremity: COMMON NORMALS: no pedal edema Neuro: COMMON NORMALS: patient oriented x3, CN's II-XII intact bilaterally, moves all extremities and no focal motor deficits SPEECH: speech normal MOTOR EXAM: 5/5 motor strength present throughout Psych: COMMON NORMALS: mental status grossly normal Discharge Data Data Completed and Pending: Completed Studies During Hospitalization Category Date Time Status CT head wo con* [id number] Urgent Cat Scan 06/10/21 17:08 Completed Pending at discharge Category Date Time Status CT angio headneck * [id number] Stat Cat Scan 06/11/21 10:24 Ordered Complete Blood Co unt w/Auto AM LABS Lab 06/12/21 04:00 Ordered Complete Blood Co unt w/Auto AM LABS Lab 06/13/21 04:00 Ordered Comprehensive Met abolic Panel AM LA BS Lab 06/12/21 04:00 Ordered Comprehensive Met abolic Panel AM LA BS Lab 06/13/21 04:00 Ordered Magnesium AM LABS Lab 06/12/21 04:00 Ordered Magnesium AM LABS Lab 06/13/21 04:00 Ordered Phosphorus AM LAB S Lab 06/12/21 04:00 Ordered Phosphorus AM LAB S Lab 06/13/21 04:00 Ordered CV carotid duplex BI* [id number] Routine Ultrasound 06/11/21 06:00 Taken CV. echo complete * [id number] Routine Ultrasound 06/11/21 06:00 Taken Labs from last 24 hours 06/11/21 06/11/21 06/11/21 04:18 04:18 04:18 WBC RBC Hgb Hct MCV MCH MCHC RDW Plt Count MPV Neut % (Auto) Lymph % (Auto) [place] % (Auto) Eos % (Auto) Baso % (Auto) Neut # (Auto) Lymph # (Auto) [place] # (Auto) Eos # (Auto) Baso # (Auto) Nucleated RBC % (a uto) Nucleated RBCs # PT INR APTT Sodium 140 Potassium 3.9 Chloride 107 Carbon Dioxide 23 Anion Gap 13.9 BUN 16 Creatinine 0.7 GFR Calculation Not Reportable Glucose 74 POC Glucose Estimat Average Gl ucose 114 Hemoglobin A1c 5.6 Calculated Osmolal ity 290 Calcium 8.4 L Phosphorus 3.1 Magnesium 1.7 Total Bilirubin 0.4 AST 30 ALT 23 Alkaline Phosphata se 42 Total Protein 6.0 L Albumin 3.6 Globulin 2.4 Triglycerides 97 Cholesterol 127 LDL Cholesterol, C alc 69 HDL Cholesterol 39 L LDL/HDL Ratio 1.77 Cholesterol/HDL Ra cristian 3.26 TSH 4.20 Urine Color Urine Appearance Urine pH Ur Specific Gravit y Urine Protein Urine Glucose (UA) Urine Ketones Urine Blood Urine Nitrate Urine Bilirubin Urine Urobilinogen Ur Leukocyte Sherry ase Urine RBC Urine WBC Ur Squamous Epith Cells Amorphous Sediment Urine Bacteria 06/11/21 06/10/21 06/10/21 04:18 17:28 17:28 WBC 6.7 RBC 4.04 L Hgb 12.2 Hct 37.7 MCV 93.3 MCH 30.2 MCHC 32.4 RDW 13.2 Plt Count 254 MPV 10.8 H Neut % (Auto) 51.8 Lymph % (Auto) 37.0 [place] % (Auto) 8.4 Eos % (Auto) 2.2 Baso % (Auto) 0.3 Neut # (Auto) 3.45 Lymph # (Auto) 2.5 [place] # (Auto) 0.6 Eos # (Auto) 0.2 Baso # (Auto) 0.0 Nucleated RBC % (a uto) 0 Nucleated RBCs # 0.0 PT 12.80 INR 0.94 APTT 32.3 Sodium 140 Potassium 4.0 Chloride 104 Carbon Dioxide 24 Anion Gap 16.0 BUN 16 Creatinine 0.7 GFR Calculation Not Reportable Glucose 85 POC Glucose Estimat Average Gl ucose Hemoglobin A1c Calculated Osmolal ity 290 Calcium 9.0 Phosphorus Magnesium Total Bilirubin 0.2 AST 24 ALT 23 Alkaline Phosphata se 52 Total Protein 7.2 Albumin 4.3 Globulin 2.9 Triglycerides Cholesterol LDL Cholesterol, C alc HDL Cholesterol LDL/HDL Ratio Cholesterol/HDL Ra cristian TSH Urine Color Urine Appearance Urine pH Ur Specific Gravit y Urine Protein Urine Glucose (UA) Urine Ketones Urine Blood Urine Nitrate Urine Bilirubin Urine Urobilinogen Ur Leukocyte Sherry ase Urine RBC Urine WBC Ur Squamous Epith Cells Amorphous Sediment Urine Bacteria 06/10/21 06/10/21 06/10/21 17:28 17:12 10:23 WBC 7.9 RBC 4.56 Hgb 13.7 Hct 42.2 MCV 92.5 MCH 30.0 MCHC 32.5 RDW 13.2 Plt Count 280 MPV 9.9 Neut % (Auto) 54.7 Lymph % (Auto) 35.2 [place] % (Auto) 7.4 Eos % (Auto) 1.9 Baso % (Auto) 0.5 Neut # (Auto) 4.34 Lymph # (Auto) 2.8 [place] # (Auto) 0.6 Eos # (Auto) 0.2 Baso # (Auto) 0.0 Nucleated RBC % (a uto) 0 Nucleated RBCs # 0.0 PT INR APTT Sodium Potassium Chloride Carbon Dioxide Anion Gap BUN Creatinine GFR Calculation Glucose POC Glucose 94 Estimat Average Gl ucose Hemoglobin A1c Calculated Osmolal ity Calcium Phosphorus Magnesium Total Bilirubin AST ALT Alkaline Phosphata se Total Protein Albumin Globulin Triglycerides Cholesterol LDL Cholesterol, C alc HDL Cholesterol LDL/HDL Ratio Cholesterol/HDL Ra cristian TSH Urine Color Yellow Urine Appearance Clear Urine pH 5 Ur Specific Gravit y 1.005 Urine Protein Neg Urine Glucose (UA) Norm Urine Ketones Negative Urine Blood Trace H Urine Nitrate Negative Urine Bilirubin Neg Urine Urobilinogen Norm Ur Leukocyte Sherry ase Negative Urine RBC 0-4 H Urine WBC 0-4 H Ur Squamous Epith Cells 0-4 H Amorphous Sediment Not Reportable Urine Bacteria Trace Vitals: Last Vital Signs Temp 97.5 F L 06/11/21 07:43 Pulse 63 06/11/21 07:43 Resp 15 06/11/21 07:43 BP 136/66 06/11/21 07:43 Pulse Ox 96 06/11/21 07:43 Discharge Plan Discharge Patient Disposition: Home Condition: Stable Prescriptions: New clopidogrel 75 mg Tablet 75 mg PO DAILY 20 Days Qty: 20 RF: 0 aspirin 81 mg Tablet,Delayed Release (Dr/Ec) 81 mg PO DAILY 30 Days Qty: 30 RF: 0 Continued cholecalciferol (vitamin D3) 2,000 unit tablet 2,000 unit PO DAILY RF: 0 [id number] acid-lutein [Adult Multivitamin (w-lutein)] 200-137.5 mcg tablet,chewable 1 tab PO DAILY RF: 0 benazepril 10 mg tablet 10 mg PO DAILY Qty: 90 RF: 3 levothyroxine 25 mcg tablet 25 mcg PO DAILY RF: 0 nitroglycerin 0.4 mg tablet, sublingual 0.4 mg SUBLINGUAL Q5M PRN (Reason: chest pain) Qty: 25 RF: 3 metoprolol succinate 25 mg tablet extended release 24 hr 25 mg PO DAILY Qty: 90 RF: 3 simvastatin 40 mg tablet 40 mg PO BEDTIME RF: 0 methotrexate sodium 2.5 mg tablet 10 mg PO Q7D RF: 0 folic acid 1 mg tablet 1 mg PO DAILY RF: 0 Held aspirin 325 mg tablet 325 mg PO DAILY Qty: 90 RF: 3 Hold Instructions: Resume on 06/27/21. resume after plavix has finished Discharge Orders: Discharge Order (Routine); Ordered 06/11/21 Ordered By: Jairo Nieves Referrals: Yumiko Garcia MD [Physician] - 1 month (Please call and schedule an appointment with Dr. Garcia within one month. ) Shannan Rios MD [Primary Care Provider] - (Please follow up with Dr. Rios within two weeks.) Discharge Diet: Cardiac Discharge Activity: Resume usual activity Patient Instructions: Aspirin (By mouth), Clopidogrel (By mouth) (Plavix), Hypertension, Transient Ischemic Attack (DC), Heart Healthy Diet (DC), Opioid Safety Activity Restrictions/Additional Instructions: -Take aspirin 81 mg daily and Plavix 75 mg daily for 20 more days -Then stop Plavix -Switch to aspirin 325 mg daily -Follow-up with neurology -If any recurrent strokelike symptoms could you please come to the emergency room or call 911 Discharge Attestations Time Spent in Discharge Care*: less than 30 min Quality Metrics Clinical Quality Measures During this hospital stay, did patient experience: Stroke Contraindication to Antithrombotic: Other Contraindication to Anticoagulation: Anticoagulation prescribed Contraindication to Statin: Statin prescribed Coding Level of Care Code Acute Chg FW DC note Exam Comprehensive Diagnoses Brain TIA G45.9 Hypertension I10 Dyslipidemia E78.5 Stented coronary artery Z95.5 Ischemic cardiomyopathy I25.5 CAD (coronary artery disease) I25.10 Rheumatoid arthritis with rheumatoid factor 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 or systems involvement M05.79
[2021-06-11 10:29] VITALS: BP 136/66; PULSE 63; RESP 15; TEMP 36.4; O2SAT 96
[2021-06-11 11:00] VITALS: O2SAT 98
[2021-06-11] MEDS: iohexol 350 mg/mL 100 mL Btl IV (11:11)
[2021-06-11 12:00] VITALS: BP 122/67; PULSE 61; RESP 16; TEMP 36.7; O2SAT 97
== END 2021-06-11 13:55 | disposition home or self-care (01) ==
LOC: ER 17:24 → MEDSURG 18:28
PROVIDERS: Admitting Provider Family Medicine; Emergency Provider Emergency Medicine; PCP Internal Medicine; Visit Provider Family Medicine
DX: G45.9 Transient cerebral ischemic attack, unspecified (principal); I65.23 Occlusion and stenosis of bilateral carotid arteries; R29.810 Facial weakness; R47.81 Slurred speech; R29.701 NIHSS score 1; I10 Essential (primary) hypertension; E78.5 Hyperlipidemia, unspecified; E03.9 Hypothyroidism, unspecified; I25.5 Ischemic cardiomyopathy; M05.79 Rheumatoid arthritis with rheumatoid factor 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 or systems involvement; I25.10 Atherosclerotic heart disease of native coronary artery without angina pectoris; I25.2 Old myocardial infarction; Z79.82 Long term (current) use of aspirin; Z79.899 Other long term (current) drug therapy; Z95.5 Presence of coronary angioplasty implant and graft; Z86.73 Personal history of transient ischemic attack (TIA), and cerebral infarction without residual deficits; Z87.891 Personal history of nicotine dependence; I51.3 Intracardiac thrombosis, not elsewhere classified; I63.9 Cerebral infarction, unspecified; Z79.02 Long term (current) use of antithrombotics/antiplatelets; I51.89 Other ill-defined heart diseases
CPT/HCPCS: 36415; 36416; 70450; 70496; 70498; 80053; 80061; 81001; 82962; 83036; 83735; 84100; 84443; 85025; 85610; 85730; 93005; 93306; 93880; 94664; 96360; 96361; 96372; 97161; 97530; 99285; G0378; G0379; J1650; J7030; Q9967

== ENCOUNTER 2021-06-11 18:00 | Observation (INO) | payer MEDICARE, BC, SELFPAY ==
[2021-06-11] VITALS (7 sets, daily range): BP systolic 124–164; BP diastolic 69–80; PULSE 70–81; RESP 17–22; TEMP 36.4–36.6; O2SAT 95–97
--- NOTE | 2021-06-11 18:42 | PC.NURSE ---
received into room 103 as direct admission from home at 1815.sr on monitor.alert and oriented x 4.denies pain at present.oriented to room environment.instructed to notify staff for any pain,numbness..or for any concerns at all.pt verb understanding of instructions.
--- NOTE | 2021-06-11 18:51 | P.HP_ITS ---
Providers/Chief Complaint Admitting Physician: Jairo Nieves MD Primary Care Provider: Shannan Rios MD Chief Complaint: TIA History of Present Illness Evonne Richard is a 75 year old female with a past medical history of rheumatoid arthritis on methotrexate, hypertension, hyperlipidemia, history of CVA status post TPA, I just discharged the patient from the hospital for a TIA, no TPA, NIH stroke scale 1, did well during the hospitalization, CT head no acute stroke, CTA head and neck no significant carotid artery stenosis, however her cardiac echocardiogram I was notified by Dr. Pascal showed radiographic evidence of a left atrial thrombus. Patient tells me that she went home, took a shower, is doing well, alert oriented x3, no facial droop, slurring of her words, no paresthesias, no lightheadedness, dizziness, her daughter is at bedside. Review of Systems Const: Denies: fever(s), chills, fatigue or malaise Eyes: Denies: change in vision or blurry vision ENMT: Denies: nasal congestion Resp: Denies: dyspnea, productive cough, non-productive cough or wheezing GI: Denies: abdominal pain, nausea, vomiting, hematemesis, diarrhea, constipation, hematochezia or melena : Denies: flank pain Musc: Denies: neck pain or back pain Skin/Breast: Denies: rash Neuro: Denies: headache(s) Psych: Denies: anxiety Endo: Denies: polyuria Medications/Allergies Home Medications Medication Instructions Recorded Confirmed Last Taken Type cholecalciferol (vitamin D3) 50 2,000 unit PO DAILY tab 08/21/19 06/10/21 06/09/21 History mcg (2,000 unit) tablet multivit with min-folic 1 tab PO DAILY tab 08/21/19 06/10/21 06/09/21 History acid-lutein 200 mcg-137.5 mcg chewable tablet benazepril 10 mg tablet 10 mg PO DAILY #90 tab 06/01/20 06/10/21 06/09/21 Rx levothyroxine 25 mcg tablet 25 mcg PO DAILY 07/04/20 06/10/21 06/09/21 History aspirin 325 mg tablet 325 mg PO DAILY #90 tab 12/22/20 06/10/21 06/09/21 Rx metoprolol succinate 25 mg 25 mg PO DAILY #90 tab 12/22/20 06/10/21 06/09/21 Rx tablet,extended release 24 hr nitroglycerin 0.4 mg sublingual 0.4 mg SUBLINGUAL Q5M PRN #25 tab 12/22/20 06/10/21 Unknown Rx tablet folic acid 1 mg PO DAILY 06/10/21 06/10/21 06/09/21 History methotrexate sodium 10 mg PO Q7D 06/10/21 06/10/21 06/04/21 History simvastatin 40 mg PO BEDTIME 06/10/21 06/10/21 06/09/21 History aspirin 81 mg PO DAILY 30 Days #30 tab 06/11/21 Unknown Rx clopidogrel 75 mg PO DAILY 20 Days #20 tab 06/11/21 Unknown Rx Allergies Allergy/AdvReac Type Severity Reaction Status Date / Time No Known Allergies Allergy Verified 02/09/21 08:56 PFSH Acute PFSH: Medical History CAD (coronary artery disease) Dyslipidemia Encounter for screening for other viral diseases High risk medication use Immunization counseling Ischemic cardiomyopathy Myocardial infarction Rheumatoid arthritis with rheumatoid factor 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 or systems involvement Surgical History H/O bilateral cataract extraction H/O: hysterectomy Hx of cholecystectomy Stented coronary artery Family History Other Diabetes Family history of premature coronary artery disease Rheumatoid arthritis Denies family history of Chronic kidney disease (CKD) Systemic lupus erythematosus (SLE) in adult Cancer Hypertension Stroke Social History Smoking and tobacco status: former smoker Quit status (tobacco): has quit using tobacco Year quit tobacco: 2020 Former quit date comment: 0.5 PPD X 30 YEARS Alcohol intake: current History of recent travel: Yes (07/26-08/05) Vitals/I&O/Wt Last Vital Signs Pulse 73 06/11/21 18:41 Resp 22 H 06/11/21 18:41 BP 164/74 06/11/21 18:41 Pulse Ox 95 06/11/21 18:41 Physical Exam Const: COMMON NORMALS: no acute distress and patient oriented x3 GENERAL APPEARANCE: cooperative and comfortable HENMT: COMMON NORMALS: normocephalic HEAD & SCALP: normocephalic Eye: COMMON NORMALS: Equal, round and reactive pupils present and EOMs intact bilaterally GENERAL EYE: appearance normal, both eyes and all related structures PUPIL: Yes Equal, round and reactive pupils present Neck/C-Spine: COMMON NORMALS: no lymphadenopathy and Thyroid normal THYROID: Thyroid normal Lymph: LYMPHATIC: no lymphadenopathy noted Resp: COMMON NORMALS: normal respiratory effort, No retractions, No use of accessory muscles and clear to auscultation bilaterally AUSCULTATION: clear to auscultation bilaterally Cardio: COMMON NORMALS: regular rate, regular rhythm, S1 normal heart sound present, S2 normal heart sound present, No gallops present (Cardio), No clicks present (Cardio) and No murmurs present (Cardio) RATE: regular rate RHYTHM: regular rhythm HEART SOUNDS: S1 normal heart sound present and S2 normal heart sound present GI: COMMON NORMALS: Normal to inspection, nondistended, normoactive bowel sounds present and Soft to palpation PALPATION: Yes Soft to palpation Extremity: COMMON NORMALS: normal to inspection, full ROM and no pedal edema Neuro: COMMON NORMALS: patient oriented x3, CN's II-XII intact bilaterally, moves all extremities and no focal motor deficits Psych: COMMON NORMALS: mental status grossly normal, Normal thought process present and cooperative THOUGHT PROCESS: Normal thought process present A&P Assessment and plan (1) LV (left ventricular) mural thrombus: -Normal LV size with diminished ejection fraction of 45%. Wall motion normalities as mentioned above. Echodensity in the LV apex, suggestive of organized thrombus. Grade III/IV diastolic dysfunction (restrictive filling pattern), severely elevated filling pressures. Mildly increased left atrial size. Thickened mitral valve. Mild-moderate mitral valve regurgitation. Thickened aortic valve. Trace aortic valve regurgitation. Mild tricuspid valve regurgitation. Estimated pulmonary artery peak systolic pressure 26 mmHg Because of the differences in technical quality, comparison with the previous study from 05/21/2018 is difficult. However it appears to me that there is worsening of the LV systolic function. The LV apex was not visualized well in the previous study -Discussed with cardiology plan on cardiac echo with contrast -We will keep n.p.o. over midnight, possible transesophageal echocardiogram -We will start on therapeutic Lovenox, she does report some remote history of bleeding, will have to keep an eye on her hemoglobin, monitor for bloody black stools -Neurochecks, NIH -Telemetry monitoring -Aspirin, statin, hold Plavix, she did get 1 dose of Plavix on 06/11/2021 early in the morning -Full code -DNR/DNI Status: Acute (2) Brain TIA: -CT head no acute stroke -CTA no hemodynamically significant carotid artery stenosis 1. Moderate stenosis at the origin of the right ICA secondary to calcified atherosclerotic plaque. 2. Mild stenosis at the origin of the left ICA secondary to calcified atherosclerotic plaque. -Just discharged in the hospital from TIA, likely from LV thrombus as above, continue aspirin, statin, therapeutic Lovenox Status: Acute (3) Hypertension: Status: Acute (4) Dyslipidemia: Status: Acute (5) Ischemic cardiomyopathy: Status: Acute (6) CAD (coronary artery disease): Status: Acute (7) Rheumatoid arthritis with rheumatoid factor 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 or systems involvement: Status: Acute Attestations Medical Necessity Statement*: Patient requires hospitalization, outpatient with observation for left ventricular thrombus, TIA Coding Level of Care Code Acute Rerolling Machine Operator for Richie Ashraf Diagnoses LV (left ventricular) mural thrombus I51.3 Brain TIA G45.9 Hypertension I10 Dyslipidemia E78.5 Ischemic cardiomyopathy I25.5 CAD (coronary artery disease) I25.10 Rheumatoid arthritis with rheumatoid factor 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 or systems involvement M05.79
--- NOTE | 2021-06-11 20:30 | P.CONIM_ITS ---
Providers/Reason For Consult Consulting Physician/Specialty*: Bradley Pascal MD/cardiology Reason for Consult*: Patient with recently diagnosed TIA. Echocardiogram revealing LV dysfunction possible apical thrombus Attending Physician: Jairo Nieves MD Primary Care Provider: Shannan Rios MD History of Present Illness History of Present Illness Evonne Richard is a 75 year old female was discharged from this hospital earlier today where she was admitted with symptoms a history of a CVA. She had left- sided facial weakness and some unsteadiness in her gait. Her symptoms subsided within 36 hours or so. She had a CT of the neck which revealed moderate stenosis of the ICA. Echocardiogram revealed LV ejection fraction around 45% with a severe hypokinesia of the LV apex. Echodensities were noted at the LV apex, suggesting organized thrombus. For this reason, the patient was brought back to the hospital for starting on anticoagulation and also for further work- up . The patient denies any chest pain or chest tightness. No palpitation, dizziness or syncopal episodes. She denies any numbness or weakness of the extremities. No headache or blurring of vision. She has a history of myocardial infarction at the age of 48. No recent chest pain. She has not had a recent cardiac work- up. She has a longstanding history of hypertension and dyslipidemia. She had a CVA approximately 2 years ago. At that time also, the work-up was essentially unremarkable. Review of Systems Narrative: CONSTITUTIONAL: No fever or chills. EYES: No blurring of vision or other visual disturbances lately. ENT: No hoarseness of voice, auditory disturbances or sore throat. CARDIOVASCULAR: As mentioned above. RESPIRATORY: No significant cough. GASTROINTESTINAL: No hematemesis or melena. GENITOURINARY: No dysuria or hematuria. INTEGUMENTARY: No skin rashes or history of skin cancer. NEURO: Left-sided facial weakness and some unsteadiness in the gait. Previous history of CVA. PSYCHIATRIC: No history of psychosis or major depression. HEMATOLOGIC: No bleeding disorders or significant anemia. ENDOCRINE: No history of polyuria or polydipsia. MUSCULOSKELETAL: No recent joint pain or swelling. ALLERGY/IMMUNOLOGY: As mentioned above. Meds/Allergies Home Medications and Allergies Home Medications Medication Instructions Recorded Confirmed Last Taken Type cholecalciferol (vitamin D3) 50 2,000 unit PO DAILY tab 08/21/19 06/10/21 06/09/21 History mcg (2,000 unit) tablet multivit with min-folic 1 tab PO DAILY tab 08/21/19 06/10/21 06/09/21 History acid-lutein 200 mcg-137.5 mcg chewable tablet benazepril 10 mg tablet 10 mg PO DAILY #90 tab 06/01/20 06/10/21 06/09/21 Rx levothyroxine 25 mcg tablet 25 mcg PO DAILY 07/04/20 06/10/21 06/09/21 History aspirin 325 mg tablet 325 mg PO DAILY #90 tab 12/22/20 06/10/21 06/09/21 Rx metoprolol succinate 25 mg 25 mg PO DAILY #90 tab 12/22/20 06/10/21 06/09/21 Rx tablet,extended release 24 hr nitroglycerin 0.4 mg sublingual 0.4 mg SUBLINGUAL Q5M PRN #25 tab 12/22/20 06/10/21 Unknown Rx tablet folic acid 1 mg PO DAILY 06/10/21 06/10/21 06/09/21 History methotrexate sodium 10 mg PO Q7D 06/10/21 06/10/21 06/04/21 History simvastatin 40 mg PO BEDTIME 06/10/21 06/10/21 06/09/21 History aspirin 81 mg PO DAILY 30 Days #30 tab 06/11/21 Unknown Rx clopidogrel 75 mg PO DAILY 20 Days #20 tab 06/11/21 Unknown Rx Allergies Allergy/AdvReac Type Severity Reaction Status Date / Time No Known Allergies Allergy Verified 02/09/21 08:56 PFSH Acute PFSH: Medical History CAD (coronary artery disease) Dyslipidemia Encounter for screening for other viral diseases High risk medication use Immunization counseling Ischemic cardiomyopathy Myocardial infarction Rheumatoid arthritis with rheumatoid factor 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 or systems involvement Surgical History H/O bilateral cataract extraction H/O: hysterectomy Hx of cholecystectomy Stented coronary artery Family History Other Diabetes Family history of premature coronary artery disease Rheumatoid arthritis Denies family history of Chronic kidney disease (CKD) Systemic lupus erythematosus (SLE) in adult Cancer Hypertension Stroke Social History Smoking and tobacco status: former smoker Quit status (tobacco): has quit using tobacco Year quit tobacco: 2020 Former quit date comment: 0.5 PPD X 30 YEARS Alcohol intake: current History of recent travel: Yes (07/26-08/05) Vitals/I&O/Wt Last Vital Signs Pulse 73 06/11/21 18:41 Resp 22 H 06/11/21 18:41 BP 164/74 06/11/21 18:41 Pulse Ox 95 06/11/21 18:50 Weight last 48 hrs Weight 148 lb Physical Exam Narrative: EXAM NARRATIVE: GENERAL: The patient is alert and oriented times three. Not in any acute distress. HEENT: No significant pallor, icterus or lymphadenopathy. The pupils are reactant to light. Oral cavity: There are no mucous membrane lesions. Funduscopic examination: The fundus is not visualized NECK: Trachea appears to be central. No masses noted. No JVD or thyromegaly appreciated. No carotid bruit. RESPIRATORY: Chest is symmetrical. No intercostals muscle retraction or any accessory muscle activation. There is no chest wall tenderness. Breath sounds are heard bilaterally. No rales or rhonchi heard. No evidence of any consolidation. BREASTS: Deferred. HEART: The PMI is in the 5th left intercostals space just inside the midclavicular line. No palpable precordial events. S1 and S2 are normal. No S3 or S4 heard. No pericardial rub or any click heard. ABDOMEN: No vessel pulsations or distention. No tenderness. No organomegaly appreciated. No abdominal bruit. Bowel sounds are normally heard. : Deferred. RECTAL: Deferred. LYMPHATIC: No lymphadenopathy noted in the neck or groin. EXTREMITIES: No edema or cyanosis. No clubbing. The pulses are symmetrical bilaterally. The radial, femoral, dorsalis pedis and the posterior tibial pulses are palpated and found to be in good volume and amplitude. MUSCULOSKELETAL: No acute joint deformities or swelling SKIN: There are no significant scars or skin rash noted. NEUROPSYCHIATRIC: The patient is alert and oriented x3. Appears to be in a good mood. The higher functions are grossly within normal limits. No tremors or rigidity noted. No focal motor deficits. Data Imaging^: Echo: My impression: Normal LV size with diminished ejection fraction of 45%. Wall motion normalities as mentioned above. Echodensity in the LV apex, suggestive of organized thrombus. Grade III/IV diastolic dysfunction (restrictive filling pattern), severely elevated filling pressures. Mildly increased left atrial size. Thickened mitral valve. Mild-moderate mitral valve regurgitation. Thickened aortic valve. Trace aortic valve regurgitation. Mild tricuspid valve regurgitation. Estimated pulmonary artery peak systolic pressure 26 mmHg Because of the differences in technical quality, comparison with the previous study from 05/21/2018 is difficult. However it appears to me that there is worsening of the LV systolic function. The LV apex was not visualized well in the previous study. CTA of head and Neck: Radiologist's impression: 1. Moderate stenosis at the origin of the right ICA secondary to calcified atherosclerotic plaque. 2. Mild stenosis at the origin of the left ICA secondary to calcified atherosclerotic plaque. EKG^: EKG 1: My Interpretation: The EKG showed sinus rhythm with a poor R wave progression. Possible old anteroseptal myocardial infarction. Possible left atrial enlargement. Occasional PVCs. A&P Assessment and plan (1) LV (left ventricular) mural thrombus: Patient echocardiogram reveals severe hypokinesis of the LV apex with echodensity suggestive of organized thrombus. This could be the nidus for the recurrent CVAs. At this point, it may be appropriate to start her on anticoagulation. To further evaluate the thrombus, and a contrast echocardiogram would be helpful. Based on the findings, further management decisions will be made. Status: Acute (2) Hypertension: Currently the blood pressure is a stage II. The antihypertensive medications needs to be optimized. Status: Acute Qualifiers: Hypertension type: primary hypertension Qualified Code(s): I10 - Essential (primary) hypertension (3) Dyslipidemia: May continue on the current medications. Status: Acute (4) Recurrent cerebrovascular accidents (CVAs): Patient may benefit from long-term oral anticoagulation. For the time being, she may be started on Lovenox. After the contrast echocardiogram, furthe r management decisions will be made Status: Acute (5) Ischemic cardiomyopathy: Since she has no evidence of any cardiac decompensation, may not require any specific intervention. Status: Acute Additional A&P Information Other problems are History of rheumatoid arthritis History of previous myocardial infarction LV dysfunction Based on the clinical progress and the results of the above, further recommendations will be made. Thank you for the opportunity to evaluate this patient make these recommendations. Coding Level of Care Code Acute Orthodontic Technician for Chg Fwd History Detailed Exam Detailed Medical Decision Making Moderate Complexity Diagnoses LV (left ventricular) mural thrombus I51.3 Hypertension I10 Hypertension type: primary hypertension Dyslipidemia E78.5 Recurrent cerebrovascular accidents (CVAs) I63.9 Ischemic cardiomyopathy I25.5
[2021-06-11] MEDS: atorvastatin 40 mg Tablet 20 MG PO (21:28)
[2021-06-11] MEDS: enoxaparin 80 mg/0.8 mL Syringe 65 MG SUBCUT (21:28)
[2021-06-12] VITALS (14 sets, daily range): BP systolic 124–135; BP diastolic 55–80; PULSE 64–76; RESP 13–21; TEMP 36.6–36.9; O2SAT 93–96
[2021-06-12 05:11] LABS: Basophils % 0.4 %; Eosinophils # 0.1 10^3/uL (0.0-0.8); Eosinophils % 1.7 %; Hematocrit 37.6 % (37.0-47.0); Hemoglobin 12.3 g/dL (11.5-15.3); Lymphocytes # 2.3 10^3/uL (0.8-4.8); Lymphocytes % 32.4 %; Mean Corpuscular HGB Conc 32.7 g/dL (30.0-36.0); Mean Corpuscular Hemoglobin 29.9 pg (28.0-34.0); Mean Corpuscular Volume 91.5 fl (81-99); Mean Platelet Volume 10.5 fL (7.4-10.4); Monocytes # 0.6 10^3/uL (0.2-0.9); Monocytes % 8.5 %; Neutrophils # 4.08 10^3/uL (1.8-7.7); Neutrophils % 56.6 %; Nucleated Red Blood Cells % 0 %; Platelet Count 247 10^3/cmm (130-400); Red Blood Count 4.11 10^6/uL (4.1-5.3); Red Cell Distribution Width 13.4 % (12.1-15.1); White Blood Count 7.2 10^3/uL (4.0-10.0)
[2021-06-12 05:42] LABS: Alanine Aminotransferase 27 U/L (0-33); Albumin Level 3.7 g/dL (3.5-5.2); Alkaline Phosphatase 46 IU/L (35-105); Anion Gap 14.9 (5-19); Aspartate Amino Transferase 29 U/L (0-32); Blood Urea Nitrogen 12 mg/dL (8-23); Calcium 8.8 mg/dL (8.5-10.5); Carbon Dioxide 23 mmol/L (22-29); Chloride 108 mmol/L (98-107); Globulin 2.8 g/dL (1.3-4.6); Glucose 85 mg/dL (65-115); Magnesium 1.8 mg/dL (1.7-2.3); Osmolality Calculated 293 mOsm/kg (285-295); Phosphorus 3.2 mg/dL (2.5-4.5); Potassium 3.9 mmol/L (3.5-5.1); Sodium 142 mmol/L (136-145); Total Bilirubin 0.5 mg/dL (0.15-1.2); Total Protein 6.5 g/dL (6.6-8.7)
[2021-06-12 05:44] LABS: NT Pro B Type Natriuretic Pept 1891 pg/mL (0-450)
[2021-06-12] MEDS: enoxaparin 80 mg/0.8 mL Syringe 65 MG SUBCUT (05:53)
[2021-06-12] MEDS: perflutren protein-a microsphr 0.22 mg/mL SDV 3 mL IV (07:55)
[2021-06-12] MEDS: cholecalciferol (vitamin D3) 1,000 unit Tablet 2000 UNIT PO (08:31)
[2021-06-12] MEDS: folic acid 1 mg Tablet PO (08:31)
[2021-06-12] MEDS: metoprolol succinate ER (24 HR) 25 mg Tablet PO (08:31)
[2021-06-12] MEDS: lisinopril 10 mg Tablet PO (08:31)
[2021-06-12] MEDS: aspirin 81 mg EC Tablet PO (08:31)
[2021-06-12] MEDS: levothyroxine 25 mcg Tablet PO (08:31)
[2021-06-12] MEDS: pantoprazole DR 40 mg Tablet PO (08:31)
--- NOTE | 2021-06-12 08:42 | PC.PHAR ---
PT STATES SHE TAKES CARE OF HER OWN MEDICATIONS-PT STATES SHE TAKES THE 325MG ASPIRIN-PT STATES SHE HASNT STARTED THE PLAVIX YET RX WRITTEN ON 06/11/21-
--- NOTE | 2021-06-12 09:34 | PC.CHAP ---
Pastoral Care Encounter/Spiritual Assessment Type of Contact [] Declined employment training specialist visit [] Patient/Family/Request visit [] Outpatient visit [] Follow-up visit [] Physician referral [] Code/Alert [x] Routine visit [] Staff referral [] Actively dying [] Patient sleeping [] Family support [] [x Out of room [] Palliative care [] [] Receiving care in room [] Pre-surgical visit [] Trauma [] Long length of stay [] ICU visit [] Other: Relational/Emotional Strength [] Patient feels connected with others/family/visitors/staff [] Distress [] Loneliness/isolation [] Abandonment Spirituality of Patient [] Person of Kerline [] Attends Gnosticist of their Kerline [] Believes in Prayer [] Reads Bible or Sabianist materials [] There are Spiritual issues to be addressed Applied Biology Professor Interventions [x] Prayer [] Active listening [] Non-anxious presence [] Spiritual/emotional support [] Crisis/trauma care [] Spiritual counseling [] Bereavement support [] Provided bereavement packet [] Provided Bible/devotional materials [] Provided toy/stuffed animal, coloring book to patient or family member [] Provided Communion [] Anointing/[place] [] Salvation [x] Completed spiritual assessment [] Other: Impact on Illness or Injury [] Angry [] Fearful [] Anxious [] Often cries [] Exhaustion [] Unable to work [] Unable to attend baptist [] Unable to walk/stand [] Unable to read [] Unable to drive [] Unable to eat/drink [] Unable to sleep [] Unable to be with family [] Patient intubated [] Other: Summary Time spent with patient
--- NOTE | 2021-06-12 10:06 | PM.PN ---
Subjective Subjective: Interval history: Patient is doing well. He underwent echocardiogram with contrast today that showed possible echodense area close to the apex. Likely LV thrombus Vitals/I&O/Wt Last Vital Signs Temp 98.0 F 06/12/21 08:39 Pulse 70 06/12/21 08:39 Resp 14 06/12/21 08:39 BP 134/68 06/12/21 08:39 Pulse Ox 96 06/12/21 04:00 Weight last 48 hrs Weight 147 lb 14.4 oz Weight 148 lb Physical Exam Narrative: EXAM NARRATIVE: GENERAL: Patient is alert, awake and oriented x3. [] NECK: No jugular vein distension. [] HEENT: No cyanosis. No icterus. No pallor. [] HEART: Regular S1 and S2. No murmur, rub or gallop. [] LUNGS: Clear to auscultate bilaterally. [] ABDOMEN: Soft, nontender and nondistended. Positive bowel sounds. No guarding, rebound or tenderness. [] CENTRAL NERVOUS SYSTEM: Grossly nonfocal. [] EXTREMITIES: Lower extremities with no edema bilaterally. Pulses palpable in the lower extremities, both dorsalis pedis and posterior tibial. [] Data : 06/12/21 04:20 06/12/21 04:20 A&P Assessment and plan (1) LV (left ventricular) mural thrombus: Possible LV thrombus noted. Patient will be started on Eliquis and we will repeat echocardiogram in 3 months to assess resolution of the thrombus Status: Acute (2) Hypertension: Continue current medications Qualifiers: Hypertension type: primary hypertension Qualified Code(s): I10 - Essential (primary) hypertension (3) Dyslipidemia: May continue on the current medications. (4) Recurrent cerebrovascular accidents (CVAs): Continue Eliquis. Will recommend event monitor to rule out arrhtyhmias Status: Acute (5) Ischemic cardiomyopathy: No evidence of decompensation Additional A&P Information Other problems are History of rheumatoid arthritis History of previous myocardial infarction LV dysfunction Thank you for involving us with care of this patient. Patient is stable to be discharged from cardiology standpoint. Please call with questions Attestations Medical Necessity Statement*: Care expected to cross 2 midnights. Coding Level of Care Code Acute Computer Numerical Control Grinder for Richie Ashraf Diagnoses LV (left ventricular) mural thrombus I51.3 Hypertension I10 Hypertension type: primary hypertension Dyslipidemia E78.5 Recurrent cerebrovascular accidents (CVAs) I63.9 Ischemic cardiomyopathy I25.5
--- NOTE | 2021-06-12 10:50 | PM.DCS ---
Discharge Providers Date of Admission: 06/11/21 18:00 Date of Discharge: June 12, 2021 Attending Provider at Admission: Jairo Nieves MD Attending Provider at Discharge: Jose King Primary Care Provider: Shannan Rios MD Diagnoses at Discharge Discharge Diagnosis (1) LV (left ventricular) mural thrombus: Status: Acute (2) Hypertension: Status: Acute Qualifiers: Hypertension type: primary hypertension Qualified Code(s): I10 - Essential (primary) hypertension (3) Dyslipidemia: Status: Acute (4) Recurrent cerebrovascular accidents (CVAs): Status: Acute (5) Ischemic cardiomyopathy: Status: Acute Reason for Visit Reason for Visit: TIA Hospital Course Hospital Course Very pleasant 75-year-old lady with history of recurrent CVA, status post TPA, recent TIA, RA on methotrexate, HTN, HLD, former smoker was again assessed in the hospital after recent discharge due to finding of mural thrombus on transthoracic echocardiography. She was hospitalized for additional assessment and was started on anticoagulation with therapeutic dose of Lovenox in addition to continued aspirin and Plavix, underwent TTE with contrast. Echocardiogram showing EF 45%, grade 3 diastolic dysfunction, thickened MV, mild MVR, echodensity in LV apex suggestive of organized thrombus. She was assessed by cardiology with identified small possible thrombus on contrast TTE, recommendation of continuation of anticoagulation with Eliquis and follow-up in 3 months, as well as arrangement for an event monitor. Follow-up with neurology as per prior discharge. Physical Exam Const: COMMON NORMALS: no acute distress, patient oriented x3 and alert GENERAL APPEARANCE: cooperative and comfortable ORIENTATION/CONSCIOUSNESS: Yes awake OTHER: Family at bedside. HENMT: COMMON NORMALS: oropharynx normal Neck/C-Spine: COMMON NORMALS: no JVD Resp: COMMON NORMALS: normal respiratory effort and clear to auscultation bilaterally AUSCULTATION: clear to auscultation bilaterally Cardio: COMMON NORMALS: no JVD, regular rhythm, S1 normal heart sound present, S2 normal heart sound present and No murmurs present (Cardio) RHYTHM: regular rhythm HEART SOUNDS: S1 normal heart sound present and S2 normal heart sound present GI: COMMON NORMALS: Normal to inspection, nondistended, normoactive bowel sounds present, Soft to palpation and non-tender PALPATION: Yes Soft to palpation Extremity: COMMON NORMALS: no joint enlargement and no pedal edema Neuro: COMMON NORMALS: patient oriented x3 and moves all extremities SENSORIUM/ORIENTATION: Yes alert Skin: COMMON NORMALS: no rashes or lesions noted GENERAL SKIN EXAM: no rashes or lesions noted Discharge Data Data Completed and Pending: Pending at discharge Category Date Time Status Complete Blood Co unt w/Auto AM LABS Lab 06/13/21 04:00 Ordered Complete Blood Co unt w/Auto AM LABS Lab 06/14/21 04:00 Ordered Comprehensive Met abolic Panel AM LA BS Lab 06/13/21 04:00 Ordered Comprehensive Met abolic Panel AM LA BS Lab 06/14/21 04:00 Ordered Magnesium AM LABS Lab 06/13/21 04:00 Ordered Magnesium AM LABS Lab 06/14/21 04:00 Ordered Phosphorus AM LAB S Lab 06/13/21 04:00 Ordered Phosphorus AM LAB S Lab 06/14/21 04:00 Ordered CV. echo lmt w/w contras [id number] Rout ine Ultrasound 06/12/21 18:32 Taken Labs from last 24 hours 06/12/21 06/12/21 06/12/21 04:20 04:20 04:20 WBC 7.2 RBC 4.11 Hgb 12.3 Hct 37.6 MCV 91.5 MCH 29.9 MCHC 32.7 RDW 13.4 Plt Count 247 MPV 10.5 H Neut % (Auto) 56.6 Lymph % (Auto) 32.4 [place] % (Auto) 8.5 Eos % (Auto) 1.7 Baso % (Auto) 0.4 Neut # (Auto) 4.08 Lymph # (Auto) 2.3 [place] # (Auto) 0.6 Eos # (Auto) 0.1 Baso # (Auto) 0.0 Nucleated RBC % (a uto) 0 Nucleated RBCs # 0.0 Sodium 142 Potassium 3.9 Chloride 108 H Carbon Dioxide 23 Anion Gap 14.9 BUN 12 Creatinine 0.8 GFR Calculation Not Reportable Glucose 85 Calculated Osmolal ity 293 Calcium 8.8 Phosphorus 3.2 Magnesium 1.8 Total Bilirubin 0.5 AST 29 ALT 27 Alkaline Phosphata se 46 NT-Pro-B Natriuret Pep 1891 H Total Protein 6.5 L Albumin 3.7 Globulin 2.8 Vitals: Last Vital Signs Temp 98.0 F 06/12/21 08:39 Pulse 70 06/12/21 08:39 Resp 14 06/12/21 08:39 BP 134/68 06/12/21 08:39 Pulse Ox 96 06/12/21 04:00 Discharge Plan Discharge Patient Disposition: Home Condition: Stable Prescriptions: New apixaban 5 mg tablet 5 mg PO BID Qty: 60 RF: 0 Continued cholecalciferol (vitamin D3) 2,000 unit tablet 2,000 unit PO BEDTIME RF: 0 benazepril 10 mg tablet 10 mg PO DAILY Qty: 90 RF: 3 levothyroxine 25 mcg tablet 25 mcg PO QAM RF: 0 nitroglycerin 0.4 mg tablet, sublingual 0.4 mg SUBLINGUAL Q5M PRN (Reason: chest pain) Qty: 25 RF: 3 metoprolol succinate 25 mg tablet extended release 24 hr 25 mg PO DAILY Qty: 90 RF: 3 simvastatin 40 mg tablet 40 mg PO BEDTIME RF: 0 methotrexate sodium 2.5 mg tablet 10 mg PO Q7D RF: 0 folic acid 1 mg tablet 1 mg PO BEDTIME RF: 0 clopidogrel 75 mg Tablet 75 mg PO DAILY 20 Days Qty: 20 RF: 0 aspirin 81 mg Tablet,Delayed Release (Dr/Ec) 81 mg PO DAILY 30 Days Qty: 30 RF: 0 multivitamin Tablet 1 tab PO BEDTIME RF: 0 Discontinued aspirin 325 mg tablet 325 mg PO DAILY Qty: 90 RF: 3 Hold Instructions: Resume on 06/27/21. resume after plavix has finished Discharge Orders: Discharge Order (Routine); Ordered 06/12/21 Ordered By: Jose King Other Ambulatory Orders: [place] cardiac event monitor (Routine) Timeframe: 1 Day Facility: [facility] - Location: Cardiac Diagnostic Laboratory Ordered By: Jose King Referrals: Shannan Rios MD [Primary Care Provider] - 4-7 days Moses Psoada M.D [Physician] - 3 months Discharge Diet: Cardiac Discharge Activity: Increase activity as tolerated Patient Instructions: Apixaban (By mouth) (Eliquis) Activity Restrictions/Additional Instructions: Please follow-up with cardiology in office with regards to the thrombus (blood clot) in the left ventricle of your heart which may be contributing to the recurrent strokes. Please note due to this you are started on blood thinner medication. Please note you are also set up at request of cardiology with cardiac monitoring. Please follow-up with the heart doctor and your primary doctor with regards to results of the heart monitor. Please continue follow-up with your primary doctor to optimize your other risk factors of stroke. Please follow-up with neurology in office as per prior discharge. Discharge Attestations Time Spent in Discharge Care*: greater than 30 min Quality Metrics Clinical Quality Measures During this hospital stay, did patient experience: Stroke Contraindication to Antithrombotic: Antithrombotic prescribed Contraindication to Anticoagulation: Anticoagulation prescribed Contraindication to Statin: Statin prescribed Coding Level of Care Code Acute g FW TN note Diagnoses LV (left ventricular) mural thrombus I51.3 Hypertension I10 Hypertension type: primary hypertension Dyslipidemia E78.5 Recurrent cerebrovascular accidents (CVAs) I63.9 Ischemic cardiomyopathy I25.5
--- NOTE | 2021-06-12 14:30 | PC.NURSE ---
discharge to home and to heart care services for event monitor as ordered Instructed pt on her new med action, possible side effect, anticoagulation therapy, continue her other home meds and dc her aspirin. pt verbalizes understanding. Instructed pt to follow-up with her pcp and student career development specialist as scheduled. Discharge packet provided. Pt does not have any concerns or questions when asked. [facility]shered pt to [facility] for event monitor set-up.
--- NOTE | 2021-06-12 18:32 | USCV_ITS ---
Evonne Richard Age: 75 Gender: F : 1945 Exam Date: 06/12/2021 07:40 Ordering Phys: Jairo Nieves MD Technologist: Melida Farah Exam Location: [facility] [place] Indication: POSS LEFT IV THROMBUS BP: 135 / 80 HR: 71 Rhythm: Sinus Technical Quality: Adequate MEASUREMENTS (Male / Female) Normal Values 2D ECHO LV Ejection Fraction MOD 2C 37.8 % LV Ejection Fraction 2C AL 35.9 % FINDINGS Left Ventricle Limited echocardiogram performed to rule out LV thrombus. LV systolic function is moderately reduced with EF of 35 to 40%. There is akinesis of apical wall. Small echodense area is noted close to apex. Possible LV thrombus. Right Ventricle Right Atrium Left Atrium Mitral Valve Aortic Valve Tricuspid Valve Pulmonic Valve Pericardium Aorta CONCLUSIONS LV systolic function is moderately reduced with EF of 35-40%. Apical akinesis. There is a small echodensity noted close to apex. Suspicious for LV thrombus. Compared to prior echocardiogram from 06/11/2021, no significant changes are noted Moses Posada MD (Electronically Signed) Final Date: 15 June 2021 11:34 S
== END 2021-06-12 14:30 | disposition home or self-care (01) ==
PROVIDERS: Admitting Provider Family Medicine; PCP Internal Medicine; Visit Provider Internal Medicine
DX: I51.3 Intracardiac thrombosis, not elsewhere classified (principal); I63.9 Cerebral infarction, unspecified; I25.5 Ischemic cardiomyopathy; I10 Essential (primary) hypertension; E78.5 Hyperlipidemia, unspecified; I65.23 Occlusion and stenosis of bilateral carotid arteries; I25.10 Atherosclerotic heart disease of native coronary artery without angina pectoris; M05.79 Rheumatoid arthritis with rheumatoid factor 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 or systems involvement; I25.2 Old myocardial infarction; Z79.899 Other long term (current) drug therapy; Z79.82 Long term (current) use of aspirin; Z79.02 Long term (current) use of antithrombotics/antiplatelets; Z86.73 Personal history of transient ischemic attack (TIA), and cerebral infarction without residual deficits; Z87.891 Personal history of nicotine dependence; I51.89 Other ill-defined heart diseases
CPT/HCPCS: 36415; 80053; 83735; 83880; 84100; 85025; 94664; 96372; C8924; G0378; G0379; J1650; Q9956

== ENCOUNTER → 2021-07-04 11:38 | Outpatient (BNVA) | payer MEDICARE, BC, SELFPAY | PROVIDERS: PCP Internal Medicine; Referring Provider Internal Medicine; Visit Provider Specialist | DX: I65.21 Occlusion and stenosis of right carotid artery (principal); I66.01 Occlusion and stenosis of right middle cerebral artery; Z09 Encounter for follow-up examination after completed treatment for conditions other than malignant neoplasm; Z86.73 Personal history of transient ischemic attack (TIA), and cerebral infarction without residual deficits; F17.210 Nicotine dependence, cigarettes, uncomplicated | CPT/HCPCS: 99205 ==

== ENCOUNTER 2021-07-31 15:33 | Outpatient (CLI) | payer MEDICARE, BC, SELFPAY ==
--- NOTE | 2021-07-31 15:40 | MR_ITS ---
WS: [id number] MRI BRAIN WITHOUT CONTRAST HISTORY: TRANSIENT CEREBRAL ISCHEMIC ATTACK COMPARISON: 07/15/2018 TECHNIQUE: Diffusion imaging, multiplanar T1, T2 and FLAIR imaging obtained. No evidence for acute infarct or hemorrhage. [place]-white matter differentiation is normal. There is extensive T2 and FLAIR signal hyperintensities completely around the ventricles and scattere d within the white matter. Additional T2 signal noted bilaterally within the chris. There is been a mi ld progression of the chronic ischemic changes since 2018. No hemorrhage or prior infarct. Ventricles and extra-axial spaces are normal. No inferior displacement of cerebellar tonsils. The sella turcica and pituitary gland are unremarkabl e. Dural venous sinuses and [place] demonstrate no abnormality on this unenhanced studies. Paranasal sinuses: Clear. Mastoid air cells: Normal. Calvarium and scalp: Intact. MR/MR head wo con* [id number] IMPRESSION: 1. No acute infarct or hemorrhage. 2. Extensive confluent and patchy chronic microvascular ischemic type changes in the supratentorial white matter and also the chris bilaterally. Mild progress ion since 2018.
== END 2021-07-31 15:34 | disposition home or self-care (01) ==
PROVIDERS: PCP Internal Medicine; Visit Provider Specialist
DX: G45.9 Transient cerebral ischemic attack, unspecified (principal)
CPT/HCPCS: 70551

== ENCOUNTER 2021-07-31 15:37 | Outpatient (CLI) | payer MEDICARE, BC, SELFPAY ==
--- NOTE | 2021-07-31 15:43 | XR_ITS ---
WS: [id number] RIGHT SHOULDER: 3 VIEW(S) TECHNIQUE: Internal and external rotation with Y view. HISTORY: PAIN IN RIGHT SHOULDER, RHEUMATOID ARTHRITIS COMPARISON: None available. No fracture or dislocation or soft tissue abnormality. Minimal narrowing of the AC joint. No hypertrophic osteophytes. No erosions or osteolysis of the dist al clavicle. XR/XR shoulder RT min 2V* [id number] IMPRESSION: Mild AC joint arthritis. Otherwise negative.
== END 2021-07-31 15:38 | disposition home or self-care (01) ==
PROVIDERS: PCP Internal Medicine; Visit Provider Internal Medicine
DX: M19.011 Primary osteoarthritis, right shoulder (principal)
CPT/HCPCS: 73030

== ENCOUNTER → 2021-09-19 13:57 | Outpatient (BNVA) | payer MEDICARE, BC, SELFPAY | PROVIDERS: PCP Internal Medicine; Visit Provider Internal Medicine Rheumatology | DX: M05.79 Rheumatoid arthritis with rheumatoid factor 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 or systems involvement (principal); Z79.899 Other long term (current) drug therapy; Z71.89 Other specified counseling; Z87.891 Personal history of nicotine dependence | CPT/HCPCS: 99214 ==

== ENCOUNTER → 2021-10-03 10:52 | Outpatient (BNVA) | payer MEDICARE, BC, SELFPAY | PROVIDERS: PCP Internal Medicine; Visit Provider Specialist | DX: I65.21 Occlusion and stenosis of right carotid artery (principal); I66.01 Occlusion and stenosis of right middle cerebral artery; I25.5 Ischemic cardiomyopathy; I51.3 Intracardiac thrombosis, not elsewhere classified; R90.82 White matter disease, unspecified; Z86.73 Personal history of transient ischemic attack (TIA), and cerebral infarction without residual deficits; Z79.01 Long term (current) use of anticoagulants; F17.210 Nicotine dependence, cigarettes, uncomplicated | CPT/HCPCS: 99214 ==

== ENCOUNTER → 2021-10-26 14:10 | Outpatient (BNVA) | payer MEDICARE, BC, SELFPAY | PROVIDERS: PCP Internal Medicine; Visit Provider Internal Medicine | DX: I25.10 Atherosclerotic heart disease of native coronary artery without angina pectoris (principal); I25.2 Old myocardial infarction; I10 Essential (primary) hypertension | CPT/HCPCS: 99214 ==

== ENCOUNTER 2021-11-16 11:43 | Outpatient (CLI) | payer MEDICARE, BC, SELFPAY ==
--- NOTE | 2021-11-16 11:57 | MR_ITS ---
WS: [id number] MRA CAROTID WITHOUT AND WITH GADOLINIUM ENHANCEMENT TECHNIQUE: Axial 2-D TOF and gadolinium bolus images obtained with axial images and axial, sagittal, and coronal 2-D reformatted images. CLINICAL INFORMATION: I63.9 - Cerebral infarction, unspecified COMPARISON: CTA head neck June 11, 2021 FINDINGS: RIGHT: RIGHT common carotid artery is patent. Mild RIGHT proximal ICA stenosis measuring approximatel y 40-50%. ICA is patent to the skull base. RIGHT ECA is patent. LEFT: LEFT common carotid artery is patent. Less than 50% LEFT ICA stenosis. LEFT ICA is patent to th e skull base. LEFT ECA is patent. Codominant and patent vertebral arteries bilaterally. Vertebral arteries are patent to the vertebroba silar junction. MR/MR angio neck wo con [id number] IMPRESSION: 1. Mild RIGHT proximal ICA stenosis measuring approximately 40%. 2. No significant LEFT ICA stenosis. 3. Codominant and patent vertebral arteries bilaterally.
--- NOTE | 2021-11-16 13:33 | MR_ITS ---
WS: [id number] MRI BRAIN WITH HIGH-RESOLUTION IMAGING THROUGH THE INTERNAL AUDITORY CANALS WITHOUT CONTRAST HISTORY: I63.9 - Cerebral infarction, unspecified COMPARISON: MRI head 07/31/2021 TECHNIQUE: Multiplanar, multisequence imaging is performed through the brain. Additional 3 mm imaging performed in multiple planes through the internal auditory canal. No acute intracranial hemorrhage, midline shift, edema or mass effect. Diffusion-weighted images are normal. No signal abnormalities or mass effect at the cerebellopontine angles or along the internal auditory canals. Scattered and confluent T2 and FLAIR signal intensities surrounding the ventricles and extending to the vertex bilaterally. Very minimal progression of the chronic white matter ischemic changes. Additional small vessel ischemic disease in the chris bilateral ly but greatest on the RIGHT. No cerebellar abnormality. Ventricles and extra-axial spaces are normal. No inferior displacement of cerebellar tonsils. Clivus and pituitary gland are normal. Internal and external auditory canals: \Unremarkable without IV contrast. Cranial nerves VII and VIII complexes: Unremarkable. Normal signal. No mass effect upon the seventh, eighth or 5th cranial nerves. Cerebellopontine angles: Normal. Paranasal sinuses: Normal. Mastoid air cells: Normal. Calvarium and scalp: Normal. Visualized flow voids at the skull base and the [place] are negative. No signal abnormality. MR/MR iac's wo con [id number] IMPRESSION: 1. Very mild progression of T2 and FLAIR signal hyperintensities throughout th e white matter in the cerebrum and bilaterally within the chris. Probably all re lated to small vessel ischemic disease. 2. Mild atrophy with stable. 3. No acute signal abnormalities at the cerebellopontine angles or along the i nternal and external auditory canals.
== END 2021-11-16 11:44 | disposition home or self-care (01) ==
PROVIDERS: PCP Internal Medicine; Visit Provider Specialist
DX: I63.9 Cerebral infarction, unspecified (principal); G31.9 Degenerative disease of nervous system, unspecified; G45.9 Transient cerebral ischemic attack, unspecified
CPT/HCPCS: 70547; 70551

== ENCOUNTER → 2022-01-29 10:22 | Outpatient (BNVA) | payer MEDICARE, BC, SELFPAY | PROVIDERS: PCP Internal Medicine; Visit Provider Specialist | DX: I65.21 Occlusion and stenosis of right carotid artery (principal); G37.9 Demyelinating disease of central nervous system, unspecified; I51.3 Intracardiac thrombosis, not elsewhere classified; F17.210 Nicotine dependence, cigarettes, uncomplicated | CPT/HCPCS: 99214 ==

== ENCOUNTER 2022-02-22 08:24 | Outpatient (CLI) | payer MEDICARE, BC, SELFPAY ==
--- NOTE | 2022-02-22 08:30 | USCV_ITS ---
Richard Evonne Age: 76 Gender: F : 1945 Exam Date: 02/22/2022 08:42 Ordering Phys: Moses Posada M.D ([email or web address]) Technologist: [place] [facility] [facility] [place]ication: mural throbus BP: 125 / 73 HR: 59 Rhythm: Sinus Technical Quality: Good MEASUREMENTS (Male / Female) Normal Values 2D ECHO LV Diastolic Diameter PLAX 5.0 cm 4.2 - 5.9 / 3.9 - 5.3 cm LV Systolic Diameter PLAX 3.5 cm IVS Diastolic Thickness 0.9 cm 0.6 - 1.0 / 0.6 - 0.9 cm IVS Systolic Thickness 1.4 cm LVPW Diastolic Thickness 1.3 cm 0.6 - 1.0 / 0.6 - 0.9 cm LVPW Systolic Thickness 1.3 cm LVOT Diameter 2.1 cm LV Ejection Fraction 2D Teich 56.2 % LV Ejection Fraction MOD 2C 49.0 % LV Ejection Fraction 2C AL 48.9 % LA Diameter 3.4 cm Aorta at Sinotubular Diameter 2.7 cm IVC Diameter 1.1 cm M-MODE Aortic Annulus Diameter 3.3 cm LA Ao Ratio MM 1.0 MV E Point Septal Separation 1.8 cm FINDINGS Left Ventricle Right Ventricle Right Atrium Left Atrium Mitral Valve Aortic Valve Tricuspid Valve Pulmonic Valve Pericardium Aorta IVC CONCLUSIONS LV systolic function is moderately reduced with EF of 35 to 40%. Apical akinesis is seen. Small echodensity still seen in apical region. Likely LV thrombus. Compared to prior echocardiogram from 06/12/2021, no significant changes are seen Moses Posada MD (Electronically Signed) Final Date: 25 February 2022 13:59 S
[2022-02-22] MEDS: perflutren protein-a microsphr 0.22 mg/mL SDV 3 mL IV (09:16)
== END 2022-02-22 08:25 | disposition home or self-care (01) ==
LOC: RAD 08:25
PROVIDERS: PCP Internal Medicine; Visit Provider Internal Medicine
DX: I51.3 Intracardiac thrombosis, not elsewhere classified (principal)
CPT/HCPCS: C8924

== ENCOUNTER 2022-02-26 09:53 | Outpatient (CLI) | payer MEDICARE, BC, SELFPAY ==
--- NOTE | 2022-02-26 10:02 | MM_ITS ---
WS: [id number] BILATERAL SCREENING DIGITAL BREAST TOMOSYNTHESIS MAMMOGRAM WITH CAD HISTORY: SCREENING COMPARISON: 12/08/2020 and 10/26/2019 Bilateral CC and MLO views with tomosynthesis and synthetic mammography submitted. Computer aided det ection analyzed. Breast composition: There are scattered areas of fibroglandular density. No suspicious masses, microc alcifications or architectural distortion. Stable calcifications RIGHT breast. Stable mild asymmetry in the central posterior LEFT breast. MM/[place] [id number] IMPRESSION: BI-RADS: 2-Benign FOLLOW UP: 1 Year Follow-up
== END 2022-02-26 09:54 | disposition home or self-care (01) ==
LOC: RAD 09:53
PROVIDERS: PCP Internal Medicine; Visit Provider Internal Medicine
DX: Z12.31 Encounter for screening mammogram for malignant neoplasm of breast (principal)
CPT/HCPCS: 77063; 77067

== ENCOUNTER → 2022-03-20 12:47 | Outpatient (BNVA) | payer MEDICARE, BC, SELFPAY | PROVIDERS: PCP Internal Medicine; Visit Provider Internal Medicine Rheumatology | DX: M05.79 Rheumatoid arthritis with rheumatoid factor 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 or systems involvement (principal); Z79.899 Other long term (current) drug therapy; Z71.89 Other specified counseling | CPT/HCPCS: 99214 ==

== ENCOUNTER → 2022-04-26 13:47 | Outpatient (BNVA) | payer MEDICARE, BC, SELFPAY | PROVIDERS: PCP Internal Medicine; Visit Provider Internal Medicine | DX: I25.10 Atherosclerotic heart disease of native coronary artery without angina pectoris (principal); E78.5 Hyperlipidemia, unspecified; I25.2 Old myocardial infarction; M05.79 Rheumatoid arthritis with rheumatoid factor 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 or systems involvement; I10 Essential (primary) hypertension; I25.5 Ischemic cardiomyopathy; I51.3 Intracardiac thrombosis, not elsewhere classified; Z87.891 Personal history of nicotine dependence | CPT/HCPCS: 99214 ==

== ENCOUNTER → 2022-05-02 11:14 | Outpatient (BNVA) | payer MEDICARE, BC, SELFPAY | PROVIDERS: PCP Internal Medicine; Visit Provider Internal Medicine Cardiovascular Disease | DX: I25.5 Ischemic cardiomyopathy (principal); I63.411 Cerebral infarction due to embolism of right middle cerebral artery; I10 Essential (primary) hypertension; Z87.891 Personal history of nicotine dependence; I65.21 Occlusion and stenosis of right carotid artery; I51.3 Intracardiac thrombosis, not elsewhere classified | CPT/HCPCS: 99213; 99214 ==

== ENCOUNTER → 2022-07-31 09:21 | Outpatient (BNVA) | payer MEDICARE, BC, SELFPAY | PROVIDERS: PCP Internal Medicine; Visit Provider Specialist | DX: G37.9 Demyelinating disease of central nervous system, unspecified (principal); I25.5 Ischemic cardiomyopathy; Z79.01 Long term (current) use of anticoagulants; Z86.73 Personal history of transient ischemic attack (TIA), and cerebral infarction without residual deficits | CPT/HCPCS: 99213 ==

== ENCOUNTER → 2022-09-24 14:26 | Outpatient (BNVA) | payer MEDICARE, BC, SELFPAY | PROVIDERS: PCP Internal Medicine; Visit Provider Internal Medicine Rheumatology | DX: M05.79 Rheumatoid arthritis with rheumatoid factor 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 or systems involvement (principal); Z79.899 Other long term (current) drug therapy; Z71.89 Other specified counseling | CPT/HCPCS: 36415; 80076; 82306; 82565; 85025; 86140; 99214 ==

== ENCOUNTER → 2022-10-26 10:21 | Outpatient (BNVA) | payer MEDICARE, BC, SELFPAY | PROVIDERS: PCP Internal Medicine; Visit Provider Nurse Practitioner Family | DX: I25.5 Ischemic cardiomyopathy (principal); I25.10 Atherosclerotic heart disease of native coronary artery without angina pectoris; I10 Essential (primary) hypertension; Z87.891 Personal history of nicotine dependence; Z79.01 Long term (current) use of anticoagulants | CPT/HCPCS: 99214 ==

== ENCOUNTER → 2023-04-26 10:52 | Outpatient (BNVA) | payer MEDICARE, BC, SELFPAY | PROVIDERS: PCP Internal Medicine; Visit Provider Internal Medicine | DX: E78.5 Hyperlipidemia, unspecified (principal); I25.10 Atherosclerotic heart disease of native coronary artery without angina pectoris; M05.79 Rheumatoid arthritis with rheumatoid factor 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 or systems involvement; I10 Essential (primary) hypertension; I25.5 Ischemic cardiomyopathy; I51.3 Intracardiac thrombosis, not elsewhere classified; I25.2 Old myocardial infarction; Z87.891 Personal history of nicotine dependence; Z79.01 Long term (current) use of anticoagulants | CPT/HCPCS: 99214 ==

== ENCOUNTER 2023-05-08 09:18 | Outpatient (CLI) | payer MEDICARE, BC, SELFPAY ==
--- NOTE | 2023-05-08 09:30 | USCV_ITS ---
Evonne Richard Age: 77 Gender: F : 1945 Exam Date: 05/08/2023 10:12 Ordering Phys: Moses Posada M.D ([email or web address]) Technologist: ALVAR[place]O Exam Location: [facility] [place] Indication: LV THROMBUS BP: 110 / 60 HR: 60 Rhythm: Sinus Technical Quality: Adequate MEASUREMENTS (Male / Female) Normal Values 2D ECHO LVOT Diameter 2.0 cm LV Ejection Fraction MOD 2C 36.2 % LV Ejection Fraction 2C AL 36.4 % LA Diameter 3.2 cm LA Width 4.0 cm LA Height 5.4 cm RA Width 2.6 cm RA Height 5.1 cm Aorta at Sinotubular Diameter 1.4 cm IVC Diameter 1.8 cm M-MODE Aortic Annulus Diameter 2.5 cm LA Ao Ratio MM 1.1 MV E Point Septal Separation 1.3 cm DOPPLER AV Peak Velocity 111.0 cm/s LVOT Peak Velocity 73.0 cm/s AV Area Cont Eq vti 2.3 cm squared AV Area Cont Eq pk 2.0 cm squared MV Peak Velocity 118.0 cm/s MV Area PHT 4.3 cm squared Mitral E to A Ratio 1.5 MV E' Velocity 56.5 cm/s Mitral E to MV E' Ratio 15.9 Mitral E to LV E' Lateral Ratio 14.8 Mitral E to LV E' Septal Ratio 17.4 TR Peak Velocity 290.6 cm/s TR Peak Gradient 33.8 mmHg TR Mean Velocity 225.7 cm/s TR Mean Gradient 22.1 mmHg TR Velocity Time Integral 106.7 cm TV Peak E Velocity 53.0 cm/s Right Atrial Pressure 3.0 mmHg Pulmonary Artery Systolic Pressu 36.8 mmHg PV Peak Velocity 81.0 cm/s RV Acceleration Time 0.1 s RV Ejection Time 0.3 s RV AcT/ET 0.4 FINDINGS Left Ventricle LV systolic function is moderate to severe reduced with EF of 30-35%. Moderate global hypokinesis seen with apical akinesis. Echogenic structure is seen in apex. Thrombus cannot be ruled out. Right Ventricle Normal in size and function Right Atrium Normal in size Left Atrium Dilated Mitral Valve Structurally normal mitral valve. Mild mitral regurgitation Aortic Valve Aortic valve is thickened. Mild aortic regurgitation. No significant stenosis. Tricuspid Valve Mild tricuspid regurgitation. RVSP is 35 to 40 mmHg. This is consistent with mild pulmonary hypertension Pulmonic Valve Not well-visualized Pericardium Normal Aorta Normal in size IVC Appears to be normal CONCLUSIONS LV systolic function is moderate to severely reduced with EF of 30 to 35%. Above-mentioned regional wall motion abnormalities are seen. An echogenic structure is seen in the apex. Thrombus cannot be ruled out. Left atrial dilation Mild mitral regurgitation Mild aortic regurgitation Mild tricuspid regurgitation Mild pulmonary hypertension. Compared to prior echocardiogram from 2021, LV systolic function has decreased slightly Moses Posada MD (Electronically Signed) Final Date: 12 May 2023 13:52 S
[2023-05-08] MEDS: perflutren protein-a microsphr 0.22 mg/mL SDV 3 mL IV (10:43)
== END 2023-05-08 09:19 | disposition home or self-care (01) ==
PROVIDERS: PCP Internal Medicine; Visit Provider Internal Medicine
DX: I51.3 Intracardiac thrombosis, not elsewhere classified (principal); I34.0 Nonrheumatic mitral (valve) insufficiency; I35.1 Nonrheumatic aortic (valve) insufficiency; I27.20 Pulmonary hypertension, unspecified
CPT/HCPCS: C8929; Q9956

== ENCOUNTER 2023-06-25 08:05 | Inpatient (IN) | payer MEDICARE, BC, SELFPAY ==
[2023-06-25] VITALS (159 sets, daily range): BP systolic 84–136; BP diastolic 48–81; PULSE 66–213; RESP 14–30; TEMP 36.6–37; O2SAT 85–98; BMI 25.7
--- NOTE | 2023-06-25 08:15 | ECG_ITS ---
[facility] Test Date: 2023-06-25 Pat Name: Evonne Richard Department: Room: Gender: Female Glove Maker: : 1945 Requested By: Dustin Das Order Number: [id number] Tanesha MD: Moses Posada M.D. Measurements Intervals [place] Rate: 182 P: 0 MN: 0 QRS: 114 QRSD: 142 T: -53 QT: 302 QTc: 527 Interpretive Statements Supraventricular tachycardia INTRAVENTRICULAR CONDUCTION DELAY [130+ ms QRS DURATION] POSSIBLE RIGHT VENTRICULAR HYPERTROPHY [SOME/ALL OF: PROMINENT R IN V1, LATE TRANSITION, RAD, KRISHAN, SSS] ANTEROLATERAL MYOCARDIAL INFARCTION ,AGE INDETERMINATE Compared to ECG 06/10/2021 17:14:47 Intraventricular conduction delay now present Myocardial infarct finding still present Electronically Signed On 06-25-2023 8:51:18 BEE BREEDER by Moses Posada M.D. [id number]
--- NOTE | 2023-06-25 08:23 | ECG_ITS ---
[facility] Test Date: 2023-06-25 Pat Name: Evonne Richard Department: Room: Gender: Female Dish Carrier: : 1945 Requested By: Dustin Das Order Number: [id number] Tanesha MD: Moses Posada M.D. Measurements Intervals [place] Rate: 214 P: 0 TX: 0 QRS: 111 QRSD: 155 T: -49 QT: 262 QTc: 495 Interpretive Statements Supraventricular tachycardia INTRAVENTRICULAR CONDUCTION DELAY [130+ ms QRS DURATION] POSSIBLE RIGHT VENTRICULAR HYPERTROPHY [SOME/ALL OF: PROMINENT R IN V1, LATE TRANSITION, RAD, KRISHAN, SSS] ANTEROLATERAL MYOCARDIAL INFARCTION AGE INDETERMINATE Compared to ECG 06/25/2023 08:24:28 Myocardial infarct finding still present Electronically Signed On 06-25-2023 10:43:51 [place]AYER by Moses Posada M.D. [id number]
--- NOTE | 2023-06-25 08:31 | W.ED.ARRPALP ---
HPI - Arrhythmia/Palpitations General: Chief Complaint: Arrhythmia/Palpitations Stated Complaint: low bp, high heart rate Time Seen by Provider: 06/25/23 08:12 Source: patient Mode of arrival: ambulatory History of Present Illness: 77-year-old female presents emergency room complaining of rapid heart rate and low blood pressure. She is on Eliquis because of previous stroke. She has a history of coronary artery disease she is also on metoprolol she held her metoprolol because her blood pressure was low. Symptoms began yesterday she also noticed a bit of racing heart and palpitations. No chest pain at this time no shortness of breath no orthopnea. MD complaint: rapid heart beat and heart racing Onset (ago): day(s) (1) Duration: constant Severity: moderate Context: occurred during rest Associated symptoms: Deny anxiety, cough, diaphoresis, muscle cramps, nausea, paresthesias, pre-syncope, sense of impending doom, short of breath, syncope, vomiting or other Review of Systems Const: Denies: diaphoresis Card: Reports: palpitations and irregular heart rhythm; Denies: chest pain, edema, syncope or pre-syncope Resp: Denies: dyspnea GI: Denies: nausea or vomiting : Denies: dysuria, urinary frequency or urinary urgency Musc: Denies: muscle cramps Skin/Breast: Denies: rash Psych: Denies: anxiety PFSH ED PFSH: Medical History CAD (coronary artery disease) 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) Dyslipidemia Encounter for screening for other viral diseases High risk medication use Hypertension Hypothyroidism (05/28/18) Immunization counseling Ischemic cardiomyopathy LV (left ventricular) mural thrombus Myocardial infarction Rheumatoid arthritis with rheumatoid factor 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 or systems involvement Vitamin D deficiency (09/09/19) Surgical History H/O bilateral cataract extraction H/O: hysterectomy Hx of cholecystectomy Stented coronary artery Family History Other Diabetes Family history of premature coronary artery disease Rheumatoid arthritis Denies family history of Chronic kidney disease (CKD) Systemic lupus erythematosus (SLE) in adult Cancer Hypertension Stroke Social History Smoking and tobacco/nicotine status: former use of tobacco/nicotine Quit status (tobacco/nicotine): has quit using Year quit tobacco: 2020 Former quit date comment: 0.5 PPD X 30 YEARS Alcohol intake: current Substance/Drug Use: never Physical Exam Const: GENERAL APPEARANCE: cooperative and comfortable ORIENTATION/CONSCIOUSNESS: Yes awake, Yes oriented to person, Yes oriented to place and Yes oriented to time HENMT: COMMON NORMALS: normocephalic, atraumatic and hearing grossly normal bilaterally HEAD & SCALP: normocephalic and atraumatic Resp: COMMON NORMALS: normal respiratory effort, No retractions, No use of accessory muscles and clear to auscultation bilaterally AUSCULTATION: clear to auscultation bilaterally Cardio: COMMON NORMALS: No murmurs present (Cardio) RATE: tachycardic RHYTHM: abnormal rhythm irregularly irregular GI: COMMON NORMALS: Soft to palpation and No hepatosplenomegaly present AUSCULTATION: Yes normoactive bowel sounds PALPATION: Yes Soft to palpation, No Tenderness to palpation present (GI), No Guarding due to palpation present (GI) and Yes No hepatosplenomegaly present Extremity: COMMON NORMALS: normal to inspection, capillary refill normal, no clubbing, cyanosis or edema, no calf tenderness and no pedal edema Neuro: SENSORIUM/ORIENTATION: Yes oriented to person, Yes oriented to place and Yes oriented to time Skin: COMMON NORMALS: no rashes or lesions noted GENERAL SKIN EXAM: no rashes or lesions noted Course Vital Signs: Vital signs: Vital Signs Temperature 97.8 F 06/25/23 11:25 Pulse Rate 69 06/25/23 12:10 Respiratory Rate 22 H 06/25/23 12:10 Blood Pressure 106/58 06/25/23 12:10 Pulse Oximetry 96 06/25/23 11:48 Oxygen Delivery Me thod Room Air 06/25/23 11:48 MDM - Arrhythmia/Palpitations Medical Decision Making Initially on exam and EKG she appeared to have atrial fibrillation we started on Cardizem she had no improvement whatsoever on her rate. It appears to me and persistently at 1 80-1 90. Patient was given 6 mg and adenosine in an attempt to slow her rate down expecting to see A-fib or flutter underlying. In part we did this to confirm it. She had no change in her rhythm whatsoever when we gave her the 6 mg of adenosine a second dose of 12 mg was given and her heart rate increased to 220 sustained blood pressure decreased to that time we elected to go forward with synchronized cardioversion. Patient consented for conscious sedation and cardioversion Timeout performed. Patient given Versed and fentanyl after adequate sedation was achieved she was cardioverted synchronized with 100 J. Patient converted to a heart rate of 60-70 after this. Repeat EKG did not show any acute ST T changes. Patient had been taking Eliquis she states right up until this event. Her first troponin was 480 suspect this is demand ischemia we did give her Lovenox and started her on amiodarone. Discussed case with Dr. Pascal who came to see the patient in the ER while we are doing the cardioversion. Will admit to the ICU on amiodarone kulwinder discussed Dr. Loja orders written Medical Records I reviewed the patient's medical records. Lab Data I reviewed the patient's lab results. 06/25/23 08:33 06/25/23 08:33 Laboratory Results WBC 9.22 10^3/uL (3.29-11.43) 06/25/23 08:33 RBC 4.34 10^6/uL (3.85-5.65) 06/25/23 08:33 Hgb 13.20 g/dL (11.27-16.99) 06/25/23 08:33 Hct 40.7 % (36-47) 06/25/23 08:33 MCV 93.8 fl (85-98) 06/25/23 08:33 MCH 30.4 pg (27-33) 06/25/23 08:33 MCHC 32.4 g/dL (30-55) 06/25/23 08:33 RDW 13.9 % (12.1-15.1) 06/25/23 08:33 Plt Count 304 10^3/cmm (157-399) 06/25/23 08:33 MPV 9.8 fL (7.4-10.4) 06/25/23 08:33 Neut % (Auto) 64.9 % 06/25/23 08:33 Lymph % (Auto) 27.4 % 06/25/23 08:33 [place] % (Auto) 6.4 % 06/25/23 08:33 Eos % (Auto) 0.5 % 06/25/23 08:33 Baso % (Auto) 0.4 % 06/25/23 08:33 Neut # (Auto) 5.97 10^3/uL (1.8-7.7) 06/25/23 08:33 Lymph # (Auto) 2.5 10^3/uL (0.8-4.8) 06/25/23 08:33 [place] # (Auto) 0.6 10^3/uL (0.2-0.9) 06/25/23 08:33 Eos # (Auto) 0.1 10^3/uL (0.0-0.8) 06/25/23 08:33 Baso # (Auto) 0.0 10^3/uL (0.0-0.1) 06/25/23 08:33 Nucleated RBC % (auto) 0 % 06/25/23 08:33 Nucleated RBCs # 0.0 /100WBC 06/25/23 08:33 Sodium 141 mmol/L (136-145) 06/25/23 08:33 Potassium 4.4 mmol/L (3.5-5.1) 06/25/23 08:33 Chloride 105 mmol/L (98-107) 06/25/23 08:33 Carbon Dioxide 21 mmol/L (22-29) L 06/25/23 08:33 Anion Gap 19.4 (5-19) H 06/25/23 08:33 BUN 26 mg/dL (8-23) H 06/25/23 08:33 Creatinine 1.1 mg/dL (0.5-0.9) H 06/25/23 08:33 GFR Calculation Not Reportable 06/25/23 08:33 Glucose 129 mg/dL (65-115) H 06/25/23 08:33 Calculated Osmolality 298 mOsm/kg (285-295) H 06/25/23 08:33 Calcium 9.7 mg/dL (8.5-10.5) 06/25/23 08:33 Magnesium 2.0 mg/dL (1.7-2.3) 06/25/23 08:33 Total Bilirubin 0.6 mg/dL (0.15-1.2) 06/25/23 08:33 AST 49 U/L (0-32) H 06/25/23 08:33 ALT 26 U/L (0-33) 06/25/23 08:33 Alkaline Phosphatase 59 U/L (35-105) 06/25/23 08:33 Troponin T Baseline 488 ng/L (0-10) H* 06/25/23 08:33 Troponin T 120 Minute 451.3 ng/L (0-10) H 06/25/23 10:22 Delta Troponin T -36.7 ABS# (0-10) L 06/25/23 10:22 Total Protein 7.0 g/dL (6.6-8.7) 06/25/23 08:33 Albumin 4.6 g/dL (3.5-5.2) 06/25/23 08:33 Globulin 2.4 g/dL (1.3-4.6) 06/25/23 08:33 TSH 7.09 uIU/mL (0.27-4.20) H 06/25/23 08:33 All radiology interpretation(s) finalized by discharge Critical Care Time Critical Care Time: Critical Care Time: Yes Total Critical Care Time: 50 Attestation: The high probability of a clinically significant, sudden or life threatening deterioration of the patient's Cardiovascular system(s) required my full and direct attention, intervention and personal management. The critical care time is as shown. This time is in addition to time spent performing any reported procedures but includes the following: [x] Data and vital sign review and interpretation [x] Patient assessment, examination and intervention [x] Documentation [x] Medication orders and management Discharge Plan Discharge Patient Disposition: Admitted As Inpatient Admit Provider: Олег Loja Clinical Impression: Ischemic cardiomyopathy, LV (left ventricular) mural thrombus, Cardiac arrhythmia, Hypotension Condition: Stable Coding Level of Care Code ED Trade [employer] Official for Richie Ashraf
[2023-06-25] MEDS: dilTIAZem 5 mg/mL SDV 5 mL 20 MG IVP (08:37)
[2023-06-25] MEDS: dilTIAZem 100 MG in sodium chloride 0.9% (add-van) 100 ML IV (08:41)
[2023-06-25 08:42] LABS: Basophils % 0.4 %; Eosinophils # 0.1 10^3/uL (0.0-0.8); Eosinophils % 0.5 %; Hematocrit 40.7 % (36-47); Lymphocytes # 2.5 10^3/uL (0.8-4.8); Lymphocytes % 27.4 %; Mean Corpuscular HGB Conc 32.4 g/dL (30-55); Mean Corpuscular Hemoglobin 30.4 pg (27-33); Mean Corpuscular Volume 93.8 fl (85-98); Mean Platelet Volume 9.8 fL (7.4-10.4); Monocytes # 0.6 10^3/uL (0.2-0.9); Monocytes % 6.4 %; Neutrophils # 5.97 10^3/uL (1.8-7.7); Neutrophils % 64.9 %; Nucleated Red Blood Cells % 0 %; Platelet Count 304 10^3/cmm (157-399); Red Blood Count 4.34 10^6/uL (3.85-5.65); Red Cell Distribution Width 13.9 % (12.1-15.1); White Blood Count 9.22 10^3/uL (3.29-11.43)
--- NOTE | 2023-06-25 09:00 | PC.PHAR ---
PT STATES SHE TAKES CARE OF HER OWN MEDICATIONS-PT STATES SHE IS STILL TAKING ELIQUIS 5MG BID MANJIT UTAH STATES LAAST FILLED 03/13/23 90D/S-PT STATES SHE HAS NITRO BUT STATES ITS OUT OF DATE-(DR MCKINNON BENAZEPRIL 10MG DAILY ON 06/24/23 CHANGED TO 5MG DAILY ON 06/24/23 PT NOT STARTED 5MG DAILY OF 06/25/23) NOTES ARE MADE IN THE PHARMACY COMMENTS
[2023-06-25] MEDS: adenosine 3 mg/mL SDV 2mL 6 MG IVP (09:14)
[2023-06-25 09:18] LABS: Alanine Aminotransferase 26 U/L (0-33); Albumin Level 4.6 g/dL (3.5-5.2); Alkaline Phosphatase 59 U/L (35-105); Anion Gap 19.4 (5-19); Aspartate Amino Transferase 49 U/L (0-32); Blood Urea Nitrogen 26 mg/dL (8-23); Calcium 9.7 mg/dL (8.5-10.5); Carbon Dioxide 21 mmol/L (22-29); Chloride 105 mmol/L (98-107); Globulin 2.4 g/dL (1.3-4.6); Glucose 129 mg/dL (65-115); Osmolality Calculated 298 mOsm/kg (285-295); Potassium 4.4 mmol/L (3.5-5.1); Sodium 141 mmol/L (136-145); Thyroid Stimulating Hormone 7.09 uIU/mL (0.27-4.20); Total Bilirubin 0.6 mg/dL (0.15-1.2)
[2023-06-25] MEDS: adenosine 3 mg/mL SDV 2mL 12 MG IVP (09:18)
[2023-06-25 09:20] LABS: Troponin(5th) Baseline 488 ng/L (0-10)
[2023-06-25] MEDS: esmolol drip 2,500 MG/250 ML PREMIX 19.73 MG IV (09:29)
[2023-06-25] MEDS: fentaNYL 50 mcg/mL INJ 2mL IVP (09:39)
[2023-06-25] MEDS: midazolam 1 mg/mL INJ 2 mL 3 MG IVP (09:39)
--- NOTE | 2023-06-25 09:39 | ECG_ITS ---
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 Measurements Intervals [place] Rate: 72 P: 75 [place]: 160 QRS: -17 QRSD: 104 T: 106 QT: 423 QTc: 464 Interpretive Statements SINUS RHYTHM WITH FREQUENT VENTRICULAR PREMATURE COMPLEXES ANTEROSEPTAL MYOCARDIAL INFARCTION , OF INDETERMINATE AGE [40+ ms Q WAVE IN V1-V4] MODERATE T-WAVE ABNORMALITY, CONSIDER LATERAL ISCHEMIA [-0.1+ mV T-WAVE IN I/aVL/V5/V6] Compared to ECG 06/25/2023 09:20:41 Ventricular premature complex(es) now present T-wave abnormality now present Possible ischemia now present Intraventricular conduction delay no longer present Myocardial infarct finding still present Electronically Signed On 06-25-2023 10:44:11 [employer] by Moses Posada M.D. [id number]
--- NOTE | 2023-06-25 09:55 | XR_ITS ---
WS: [id number] Portable AP upright chest, 06/25/2023 Clinical Data: arrhythmia Comparison: Portable chest, 05/20/2018 Findings: No nodules, masses or effusions are seen. The heart is slightly enlarged. The pulmonary vas cularity is not increased. No pneumonia or pneumothorax is seen. The arch of the aorta and descending thoracic aorta show minimal calcification and tortuosity. Monitor leads are on the chest wall. Impression: Atherosclerosis and cardiomegaly.
--- NOTE | 2023-06-25 10:23 | P.HP_ITS ---
Providers/Chief Complaint Admitting Physician: Олег Loja MD Primary Care Provider: Shannan Rios MD Chief Complaint: low bp, high heart rate History of Present Illness Evonne Richard is a 77 year old female who presented to the emergency department today with her grandson. According to patient she felt dizzy may be several days ago, and weak the last several days. She reported no chest discomfort. Yesterday she felt as if her heart was racing. She denies any shortness of breath. She did have some nausea. To me she denies any chest discomfort. No recent illness, fevers, cough, vomiting. No issues with any medication. In the emergency department it was noted that her heart rate was approximately 170. She received some Cardizem, short course of esmolol, several doses of adenosine. Heart rate went up at 1 point to 220 and the decision was made to cardiovert. With cardioversion she returned to sinus rhythm. Review of Systems General: Reports: 10 or more systems reviewed and unremarkable except in HPI and below Card: Reports: palpitations; Denies: chest pain Resp: Denies: dyspnea GI: Reports: nausea; Denies: abdominal pain, vomiting, hematochezia or melena Medications/Allergies Home Medications Medication Instructions Recorded Confirmed Last Taken Type cholecalciferol (vitamin D3) 50 2,000 unit PO BEDTIME 08/21/19 06/25/23 06/24/23 History mcg (2,000 unit) tablet multivitamin 1 tab PO BEDTIME 06/12/21 06/25/23 06/24/23 History prednisone 10 mg tablet See Rx Instructions PO .COMPLEX 09/19/21 06/25/23 Unknown Rx PRN joint pain #30 tabs omega 3-ljn-tzy-fish oil 60 mg-90 1 cap PO BEDTIME 07/31/22 06/25/23 06/24/23 History mg-500 mg capsule (Fish Oil) methotrexate sodium 2.5 mg tablet 5 mg PO Q7D #20 tabs 09/24/22 06/25/23 06/23/23 Rx folic acid 1 mg tablet 1 mg PO BEDTIME #90 tabs 11/21/22 06/25/23 06/24/23 Rx apixaban 5 mg tablet (Eliquis) 5 mg PO BID #180 tabs 04/26/23 06/25/23 06/24/23 Rx benazepril 10 mg tablet 10 mg PO DAILY #90 tabs 04/26/23 06/25/23 06/23/23 Rx simvastatin 40 mg tablet 40 mg PO BEDTIME #90 tabs 04/26/23 06/25/23 06/24/23 Rx benazepril 5 mg tablet 5 mg PO DAILY 06/25/23 06/25/23 Unknown History metoprolol succinate 25 mg 25 mg PO BEDTIME 06/25/23 06/25/23 06/24/23 History tablet,extended release 24 hr nitroglycerin 0.4 mg sublingual 0.4 mg sublingual Q5M PRN Chest 06/25/23 06/25/23 Unknown History tablet (Nitrostat) Pain Allergies Allergy/AdvReac Type Severity Reaction Status Date / Time TPA Allergy Unknown Uncoded 04/26/23 11:06 PFSH Acute PFSH: Medical History (Updated 06/25/23 @ 10:35 by Олег Loja MD) CAD (coronary artery disease) 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) Dyslipidemia Encounter for screening for other viral diseases High risk medication use Hypertension Hypothyroidism (05/28/18) Immunization counseling Ischemic cardiomyopathy LV (left ventricular) mural thrombus Myocardial infarction Rheumatoid arthritis with rheumatoid factor 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 or systems involvement Vitamin D deficiency (09/09/19) Surgical History H/O bilateral cataract extraction H/O: hysterectomy Hx of cholecystectomy Stented coronary artery Family History Other Diabetes Family history of premature coronary artery disease Rheumatoid arthritis Denies family history of Chronic kidney disease (CKD) Systemic lupus erythematosus (SLE) in adult Cancer Hypertension Stroke Social History Smoking and tobacco/nicotine status: former use of tobacco/nicotine Quit status (tobacco/nicotine): has quit using Year quit tobacco: 2020 Former quit date comment: 0.5 PPD X 30 YEARS Alcohol intake: current Substance/Drug Use: never Vitals/I&O/Wt Last Vital Signs Temp 97.8 F 06/25/23 08:19 Pulse 177 H 06/25/23 08:19 Resp 14 06/25/23 08:19 BP 96/64 06/25/23 08:19 Pulse Ox 97 06/25/23 08:19 O2 Del Method Room Air 06/25/23 08:19 06/24/23 06/25/23 06/25/23 22:59 06:59 14:59 Intake Total 6.21 / 6.21 Balance 6.21 / 6.21 Weight last 48 hrs Weight 65.771 kg Physical Exam Narrative: General exam is a white female, slightly groggy after cardioversion, in no distress HEENT: Atraumatic normocephalic. Pupils equally round. Oropharynx clear Neck is supple no lymphadenopathy thyromegaly Cardiovascular regular rhythm, no murmur, frequent premature beats. Telemetry demonstrates frequent PVCs. Lungs clear no wheezing or crackles Abdomen soft with positive bowel sounds. No obvious organomegaly Extremities no cyanosis clubbing or edema, cap refill brisk. Pulses intact Skin no rash Neuro no obvious focal deficits Data 06/25/23 08:33 06/25/23 08:33 Other Labs: LFTs normal with exception of AST of 49 Initial troponin 488 Albumin 4.6 TSH 7.09 I have ordered a magnesium, it is normal at 2.0 I have ordered a chest x-ray which I can review now and demonstrates a normal cardiac silhouette, no infiltrate Initial EKG demonstrates a narrow complex tachycardia with right axis deviation, which appears to have a right bundle branch block. QRS duration [address]-T wave changes are noted. EKG after cardioversion demonstrates right axis deviation, Q waves anteriorly, no significant T wave elevation or de pression. Flipped T waves are noted laterally. A few PVCs are seen. A&P Assessment and plan (1) Cardiac arrhythmia: Patient presents with narrow complex tachycardia, which may represent SVT secondary to his regularity. It was unable to be defined with adenosine as no block ever occurred. In fact, heart rate went up and cardioversion was needed. She is now in sinus rhythm. Cardiology consult was obtained by the emergency department. They recommended amiodarone, admission to ICU for close monitoring I have ordered a magnesium level, which is come back normal Her TSH has been performed which is slightly elevated The rest of her electrolytes are normal Last echocardiogram was in April with an ejection fraction of 30 to 35%. We will obtain a limited echo this visit. (2) Hypotension: Patient with hypotension on presentation, likely related to her cardiac arrhythmia and rate Monitor for resolution Hold blood pressure medication of benazepril and metoprolol currently, and consider reinitiation following improvement in blood pressure (3) Ischemic cardiomyopathy: Patient with history of underlying ischemic cardiomyopathy with EF of 30 to 35% and LV thrombus for which she had had a TIA in the past Continue full dose anticoagulation. Hold her apixaban currently, changed to Lovenox subcutaneous Continue statin (4) Acute kidney injury: Repeat CBC, CMP tomorrow She has received some fluids in the emergency department. Secondary to her cardiomyopathy will not continue significant IV fluids. We will allow her to orally hydrate. Plan Other medical problems as outlined in past medical history Full code currently Lovenox will suffice for DVT prophylaxis Attestations Medical Necessity Statement*: Will require greater than 2 midnight stay for evaluation and treatment of severe tachycardia, underlying arrhythmia with need for cardioversion Diagnoses Cardiac arrhythmia I49.9 Hypotension I95.9 Ischemic cardiomyopathy I25.5 Acute kidney injury N17.9 Time Spent (min) 58
--- NOTE | 2023-06-25 10:31 | PC.NURSE ---
PATIENTS HEART RATE 183. CARDIZEM DID NOT WORK GRETCHEN AT NURSE AT BEDSIDE. AT 0914 6MG ADENOSINE WAS GIVEN, HR NO CHANGE. AT 0918 12 MG ADENOSINE WAS GIVEN, HR INCREASED TO 213 ESMOLOL STARTED AT 09 AND STOPPED PER GRETCHEN AT 09 ZOLL PADS WERE APPLIED, 50 FENTANYL AND 3 VERSED GIVEN TO PATIENT. RT AT BEDSIDE, PATIENT ON 6L NC. GRETCHEN CHARGED ZOLL TO 100 J, PATIENT WAS SHOCKED, HR CHANGED TO 73 SR. GRETCHEN ORDERS AMIODARONE AND VERBALIZED TO START AT 0.5 MG/MIN.
[2023-06-25 10:52] LABS: Troponin 5 2HR 451.3 ng/L (0-10); Troponin 5 2HR Delta -36.7 ABS# (0-10)
--- NOTE | 2023-06-25 11:21 | USCV_ITS ---
Evonne Richard Age: 77 Gender: F : 1945 Exam Date: 06/25/2023 13:39 Ordering Phys: Олег Loja MD Technologist: Herbie Wu [place] [facility] [place]: BP: 104 / 63 HR: 86 Rhythm: Sinus Technical Quality: Adequate MEASUREMENTS (Male / Female) Normal Values 2D ECHO LV Diastolic Diameter PLAX 4.5 cm 4.2 - 5.9 / 3.9 - 5.3 cm LV Systolic Diameter PLAX 3.6 cm IVS Diastolic Thickness 1.0 cm 0.6 - 1.0 / 0.6 - 0.9 cm IVS Systolic Thickness 1.5 cm LVPW Diastolic Thickness 1.3 cm 0.6 - 1.0 / 0.6 - 0.9 cm LVPW Systolic Thickness 1.4 cm LV Ejection Fraction 2D Teich 40.2 % LV Ejection Fraction MOD 2C 52.8 % LV Ejection Fraction 2C AL 52.8 % LA Diameter 4.3 cm M-MODE Aortic Annulus Diameter 2.7 cm LA Ao Ratio MM 1.6 FINDINGS Left Ventricle Mild diffuse hypokinesia of the mid and apical septum, anteroseptum and LV apex. Dyskinetic apical inferior wall segment. LV ejection fraction around 45%, visual. The apex could not be visualized with Right Ventricle ppears to be of normal size and ejection fraction. Right Atrium Normal right atrial size. Left Atrium Mildly increased left atrial size. Mitral Valve Mild mitral annular calcification. Aortic Valve No gross abnormalities noted Tricuspid Valve No gross abnormalities noted Pulmonic Valve Pulmonic valve not well visualized. Pericardium No pericardial effusion. Aorta Normal aortic annulus size. IVC Inferior vena cava not visualized. CONCLUSIONS Mild diffuse hypokinesia of the mid and apical septum, anteroseptum and LV apex. Dyskinetic apical inferior wall segment. LV ejection fraction around 45%, visual. Mildly increased left atrial size. There is no pericardial effusion. Technically somewhat limited study. Compared to the previous study from 05/08/2023, there is some improvement in the LV ejection fraction Dr Piedad Pascal MD FAC (Electronically Signed) Final Date: 26 June 2023 10:06 S
--- NOTE | 2023-06-25 11:28 | PC.NURSE ---
No change from admission assessment, see assessment
[2023-06-25 14:15] LABS: Add Urine Microscopic? NO; Charge for UA Resulting for Rev
--- NOTE | 2023-06-25 14:15 | ECG_ITS ---
[facility] Test Date: 2023-06-25 Pat Name: Evonne Richard Department: Room: ICU03 Gender: Female Fur Blower: : 1945 Requested By: Dustin Das Order Number: [id number] Tanesha MD: Moses Posada M.D. Measurements Intervals [place] Rate: 72 P: 79 DC: 173 QRS: -6 QRSD: 122 T: 109 QT: 438 QTc: 482 Interpretive Statements SINUS RHYTHM WITH OCCASIONAL VENTRICULAR PREMATURE COMPLEXES ANTEROSEPTAL MYOCARDIAL INFARCTION , OF INDETERMINATE AGE [40+ ms Q WAVE IN V1-V4] MODERATE T-WAVE ABNORMALITY, CONSIDER LATERAL ISCHEMIA [-0.1+ mV T-WAVE IN I/aVL/V5/V6] Compared to ECG 06/25/2023 09:39:22 No significant changes Electronically Signed On 06-25-2023 17:20:21 [employer] by Moses Posada M.D. [id number]
[2023-06-25 14:18] LABS: Urine Color Yellow (Yellow)
[2023-06-25 14:19] LABS: Bilirubin Urine Neg (Negative); Blood Urine Neg (Negative); Glucose Urine UA Norm (Normal); Ketones Urine Negative (Negative); Leukocyte Esterase Urine Negative (Negative); Nitrate Urine Negative (Negative); Protein Urine Neg (Negative); Specific Gravity, Urine 1.015 (1.005-1.030); Urine Appearance Clear (CLEAR); Urobilinogen Urine Norm (Negative); pH Urine 5 (5-7)
[2023-06-25 15:56] LABS: Troponin 5 6HR 573.7 ng/L (0-10); Troponin 5 6HR Delta 85.7 ng/L (0-12)
--- NOTE | 2023-06-25 17:13 | P.CONIM_ITS ---
Providers/Reason For Consult Consulting Physician/Specialty*: SHYAM Pascal MD/cardiology Reason for Consult*: Patient with tachycardia and hypotension Requesting Physician: Dr. Loja/Dr. Gregg Attending Physician: Олег Loja MD Primary Care Provider: Shannan Rios MD History of Present Illness History of Present Illness Evonne Richard is a 77 year old female with a history of atherosclerotic heart dis eas, previous myocardial infarction, ischemic cardiomyopathy, multiple CVA, possible LV apical thrombus, on long-term oral anticoagulation, he is present with complaints of generalized weakness and palpitation since yesterday morning. Her symptoms are gradually getting worse. She was found to be hypotensive with a heart rate in the 180s and blood pressure in the 90s, systolic. Patient was cardioverted with 100 J of biphasic current in the emergency room. She is admitted to hospital for further evaluation management. This patient is known to have cardiomyopathy with ejection fraction around 30 to 35% by echocardiogram done recently. She apparently has been in her baseline state of health up until day before yesterday evening when she having some dizziness. Yesterday morning when she woke up, she was feeling extremely weak with the palpitations. No chest pain. No fever or chills. No cough. No nausea or vomiting. No other associated symptoms. Patient is known to have rheumatoid arthritis and dyslipidemia. She also is known to have ventricular arrhythmia by Holter monitor. Patient had no history for any significant tachyarrhythmia. Review of Systems Narrative: CONSTITUTIONAL: No fever or chills. EYES: No blurring of vision or other visual disturbances lately. ENT: No hoarseness of voice, auditory disturbances or sore throat. CARDIOVASCULAR: As mentioned above. RESPIRATORY: No significant cough. GASTROINTESTINAL: No hematemesis or melena. GENITOURINARY: No dysuria or hematuria. INTEGUMENTARY: No skin rashes or history of skin cancer. NEURO: No transient ischemic attacks or amaurosis. PSYCHIATRIC: No history of psychosis or major depression. HEMATOLOGIC: No bleeding disorders or significant anemia. ENDOCRINE: No history of polyuria or polydipsia. MUSCULOSKELETAL: History of rheumatoid arthritis, on prednisone and methotrexate ALLERGY/IMMUNOLOGY: As mentioned above. Medications/Allergies Home Medications Medication Instructions Recorded Confirmed Last Taken Type cholecalciferol (vitamin D3) 50 2,000 unit PO BEDTIME 08/21/19 06/25/23 06/24/23 History mcg (2,000 unit) tablet multivitamin 1 tab PO BEDTIME 06/12/21 06/25/23 06/24/23 History prednisone 10 mg tablet See Rx Instructions PO .COMPLEX 09/19/21 06/25/23 Unknown Rx PRN joint pain #30 tabs omega 1-gik-knb-fish oil 60 mg-90 1 cap PO BEDTIME 07/31/22 06/25/23 06/24/23 History mg-500 mg capsule (Fish Oil) methotrexate sodium 2.5 mg tablet 5 mg PO Q7D #20 tabs 09/24/22 06/25/23 06/23/23 Rx folic acid 1 mg tablet 1 mg PO BEDTIME #90 tabs 11/21/22 06/25/23 06/24/23 Rx apixaban 5 mg tablet (Eliquis) 5 mg PO BID #180 tabs 04/26/23 06/25/23 06/24/23 Rx benazepril 10 mg tablet 10 mg PO DAILY #90 tabs 04/26/23 06/25/23 06/23/23 Rx simvastatin 40 mg tablet 40 mg PO BEDTIME #90 tabs 04/26/23 06/25/23 06/24/23 Rx benazepril 5 mg tablet 5 mg PO DAILY 06/25/23 06/25/23 Unknown History metoprolol succinate 25 mg 25 mg PO BEDTIME 06/25/23 06/25/23 06/24/23 History tablet,extended release 24 hr nitroglycerin 0.4 mg sublingual 0.4 mg sublingual Q5M PRN Chest 06/25/23 06/25/23 Unknown History tablet (Nitrostat) Pain Allergies Allergy/AdvReac Type Severity Reaction Status Date / Time TPA Allergy Unknown Uncoded 04/26/23 11:06 Current Medications Generic Name Dose Route Start Last Admin Trade Name Freq PRN Reason Stop Dose Admin Amiodarone HCl/Dextrose 360 mg in 200 mls @ 0 mls/hr 06/25/23 09:41 06/25/23 10:12 Nexterone IV 0.5 mg/min .Q0M JACK 16.67 mls/hr Administration Protocol Per Protocol PFSH Acute PFSH: Medical History CAD (coronary artery disease) 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) Dyslipidemia Encounter for screening for other viral diseases High risk medication use Hypertension Hypothyroidism (05/28/18) Immunization counseling Ischemic cardiomyopathy LV (left ventricular) mural thrombus Myocardial infarction Rheumatoid arthritis with rheumatoid factor 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 or systems involvement Vitamin D deficiency (09/09/19) Surgical History H/O bilateral cataract extraction H/O: hysterectomy Hx of cholecystectomy Stented coronary artery Family History Other Diabetes Family history of premature coronary artery disease Rheumatoid arthritis Denies family history of Chronic kidney disease (CKD) Systemic lupus erythematosus (SLE) in adult Cancer Hypertension Stroke Social History Smoking and tobacco/nicotine status: former use of tobacco/nicotine Quit status (tobacco/nicotine): has quit using Year quit tobacco: 2020 Former quit date comment: 0.5 PPD X 30 YEARS Alcohol intake: current Substance/Drug Use: never Vitals/I&O/Wt Last Vital Signs Temp 97.8 F 06/25/23 11:25 Pulse 75 06/25/23 16:05 Resp 27 H 06/25/23 16:05 BP 119/61 06/25/23 16:05 Pulse Ox 97 06/25/23 16:05 O2 Del Method Room Air 06/25/23 11:48 06/25/23 06/25/23 06/25/23 06:59 14:59 22:59 Intake Total 246.21 / 246.21 Balance 246.21 / 246.21 Weight last 48 hrs Weight 145 lb Physical Exam Narrative: GENERAL: The patient is alert and oriented times three. Not in any acute distress. HEENT: No significant pallor, icterus or lymphadenopathy.Oral cavity: There are no mucous membrane lesions. NECK: Trachea appears to be central. No masses noted. No JVD or thyromegaly appreciated. RESPIRATORY: Chest is symmetrical. No intercostals muscle retraction or any accessory muscle activation. There is no chest wall tenderness. Breath sounds are heard bilaterally. No rales or rhonchi heard. No evidence of any consolidation. BREASTS: Deferred. HEART: The heart sounds are normal. No S3 or S4. Short systolic murmur in the lower sternal border. No diastolic murmurs. No pericardial rub ABDOMEN: No vessel pulsations or distention. No tenderness. No organomegaly appreciated. Bowel sounds are normally heard. : Deferred. RECTAL: Deferred. LYMPHATIC: No lymphadenopathy noted in the neck. EXTREMITIES: No edema or cyanosis. No clubbing. MUSCULOSKELETAL: No acute joint deformities or swelling SKIN: There are no significant rashes or ecchymosis NEUROPSYCHIATRIC: The patient is alert and oriented x3. Appears to be in a good mood. No tremors or rigidity noted. Data 06/26/23 03:45 06/26/23 03:45 Other Labs: Laboratory Last Values WBC 9.22 10^3/uL (3.29-11.43) 06/25/23 08:33 RBC 4.34 10^6/uL (3.85-5.65) 06/25/23 08:33 Hgb 13.20 g/dL (11.27-16.99) 06/25/23 08:33 Hct 40.7 % (36-47) 06/25/23 08:33 MCV 93.8 fl (85-98) 06/25/23 08:33 MCH 30.4 pg (27-33) 06/25/23 08:33 MCHC 32.4 g/dL (30-55) 06/25/23 08:33 RDW 13.9 % (12.1-15.1) 06/25/23 08:33 Plt Count 304 10^3/cmm (157-399) 06/25/23 08:33 MPV 9.8 fL (7.4-10.4) 06/25/23 08:33 Neut % (Auto) 64.9 % 06/25/23 08:33 Lymph % (Auto) 27.4 % 06/25/23 08:33 [place] % (Auto) 6.4 % 06/25/23 08:33 Eos % (Auto) 0.5 % 06/25/23 08:33 Baso % (Auto) 0.4 % 06/25/23 08:33 Neut # (Auto) 5.97 10^3/uL (1.8-7.7) 06/25/23 08:33 Lymph # (Auto) 2.5 10^3/uL (0.8-4.8) 06/25/23 08:33 [place] # (Auto) 0.6 10^3/uL (0.2-0.9) 06/25/23 08:33 Eos # (Auto) 0.1 10^3/uL (0.0-0.8) 06/25/23 08:33 Baso # (Auto) 0.0 10^3/uL (0.0-0.1) 06/25/23 08:33 Nucleated RBC % (auto) 0 % 06/25/23 08:33 Nucleated RBCs # 0.0 /100WBC 06/25/23 08:33 Sodium 141 mmol/L (136-145) 06/25/23 08:33 Potassium 4.4 mmol/L (3.5-5.1) 06/25/23 08:33 Chloride 105 mmol/L (98-107) 06/25/23 08:33 Carbon Dioxide 21 mmol/L (22-29) L 06/25/23 08:33 Anion Gap 19.4 (5-19) H 06/25/23 08:33 BUN 26 mg/dL (8-23) H 06/25/23 08:33 Creatinine 1.1 mg/dL (0.5-0.9) H 06/25/23 08:33 GFR Calculation Not Reportable 06/25/23 08:33 Glucose 129 mg/dL (65-115) H 06/25/23 08:33 Calculated Osmolality 298 mOsm/kg (285-295) H 06/25/23 08:33 Calcium 9.7 mg/dL (8.5-10.5) 06/25/23 08:33 Magnesium 2.0 mg/dL (1.7-2.3) 06/25/23 08:33 Total Bilirubin 0.6 mg/dL (0.15-1.2) 06/25/23 08:33 AST 49 U/L (0-32) H 06/25/23 08:33 ALT 26 U/L (0-33) 06/25/23 08:33 Alkaline Phosphatase 59 U/L (35-105) 06/25/23 08:33 Troponin T Baseline 488 ng/L (0-10) H* 06/25/23 08:33 Troponin T 120 Minute 451.3 ng/L (0-10) H 06/25/23 10:22 Delta Troponin T -36.7 ABS# (0-10) L 06/25/23 10:22 Troponin T Hi Sens 6Hr 573.7 ng/L (0-10) H 06/25/23 14:32 Troponin T Hi Sens 6Hr Delta 85.7 ng/L (0-12) H* 06/25/23 14:32 Total Protein 7.0 g/dL (6.6-8.7) 06/25/23 08:33 Albumin 4.6 g/dL (3.5-5.2) 06/25/23 08:33 Globulin 2.4 g/dL (1.3-4.6) 06/25/23 08:33 TSH 7.09 uIU/mL (0.27-4.20) H 06/25/23 08:33 Urine Color Yellow (Yellow) 06/25/23 13:58 Urine Appearance Clear (CLEAR) 06/25/23 13:58 Urine pH 5 (5-7) 06/25/23 13:58 Ur Specific [place] 1.015 (1.005-1.030) 06/25/23 13:58 Urine Protein Neg (Negative) 06/25/23 13:58 Urine Glucose (UA) Norm (Normal) 06/25/23 13:58 Urine Ketones Negative (Negative) 06/25/23 13:58 Urine Blood Neg (Negative) 06/25/23 13:58 Urine Nitrate Negative (Negative) 06/25/23 13:58 Urine Bilirubin Neg (Negative) 06/25/23 13:58 Urine Urobilinogen Norm mg/dL (Negative) 06/25/23 13:58 Ur Leukocyte Esterase Negative (Negative) 06/25/23 13:58 EKG 1: My Interpretation: Wide-complex tachycardia possibly atrial flutter with rapid ventricular rate. Right axis deviation. Possibility for fascicular tachycardia cannot be excluded. features of anterolateral wall myocardial infarction possibly old. Nonspecific IVCD with a QRS duration 142 ms. A&P Assessment and plan (1) Supraventricular tachycardia: Possibly atrial flutter with rapid ventricular rate. Possibility for fascicular tachycardia cannot be excluded. Because of the symptomatic arrhythmia and low blood pressure, patient was cardioverted in the emergency room with a 100 J of biphasic current. Prior to this, patient was given 2 doses of adenosine IV-6 mg followed by 12 mg. Apparently the heart rate only went up into the 200 range after the second dose. Patient was cardioverted to normal sinus rhythm. In order to maintain the sinus rhythm, she was started on IV amiodarone. This may be switched to p.o. later on. (2) Ischemic cardiomyopathy: The LV ejection fraction was 30-35% echocardiogram. She need to be carefully monitored for any development of heart failure and other concomitant complications. Need to optimize the GDMT. May need to consider ICD. (3) Rheumatoid arthritis with rheumatoid factor 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 or systems involvement: May continue the current medications as it is. (4) Recurrent cerebrovascular accidents (CVAs): She has no recurrence of CVA. May continue on the current management. Patient needs to be on long-term oral anticoagulation. She has been compliant with medications. (5) Atherosclerosis of coronary artery of [place] heart without angina pectoris: Since the patient has no specific symptoms of coronary insufficiency, may continue on the current management for the time being. Need to consider a Myocardial perfusion imaging to evaluate for any underlying coronary ischemia, if she has not had any stress testing in the recent past. (6) LV (left ventricular) mural thrombus: Patient is on long-term oral anticoagulation. This may be continued. Consult Attestations Medical Necessity Statement: Based on the patient's clinical progress, further recommendations will be made. She may be kept on the current medications. May need to consider Myocardial perfusion imaging, to evaluate for any underlying coronary ischemia, if it has not been done recently. Thank you for the opportunity to evaluate this patient and make these recommendations. Coding Level of Care Code 84999 Diagnoses Supraventricular tachycardia I47.10 Ischemic cardiomyopathy I25.5 Rheumatoid arthritis with rheumatoid factor 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 or systems involvement M05.79 Recurrent cerebrovascular accidents (CVAs) I63.9 Atherosclerosis of coronary artery of [place] heart without angina pectoris I25.10 LV (left ventricular) mural thrombus I51.3
[2023-06-25] MEDS: atorvastatin 40 mg Tablet 20 MG PO (21:16)
[2023-06-25] MEDS: folic acid 1 mg Tablet PO (21:16)
[2023-06-25] MEDS: enoxaparin 60 mg/0.6 mL Syringe SUBCUT (21:17)
[2023-06-26] VITALS (263 sets, daily range): BP systolic 57–158; BP diastolic 39–96; PULSE 68–180; RESP 9–44; TEMP 36.7–37.2; O2SAT 83–99
[2023-06-26 04:45] LABS: Basophils % 0.3 %; Eosinophils # 0.1 10^3/uL (0.0-0.8); Hematocrit 36.9 % (36-47); Lymphocytes # 1.9 10^3/uL (0.8-4.8); Lymphocytes % 21.3 %; Mean Corpuscular HGB Conc 32.8 g/dL (30-55); Mean Corpuscular Hemoglobin 30.3 pg (27-33); Mean Corpuscular Volume 92.5 fl (85-98); Mean Platelet Volume 10.6 fL (7.4-10.4); Monocytes # 0.5 10^3/uL (0.2-0.9); Monocytes % 5.4 %; Neutrophils % 71.8 %; Nucleated Red Blood Cells % 0 %; Platelet Count 250 10^3/cmm (157-399); Red Blood Count 3.99 10^6/uL (3.85-5.65); Red Cell Distribution Width 13.9 % (12.1-15.1); White Blood Count 9.06 10^3/uL (3.29-11.43)
[2023-06-26 05:08] LABS: Alanine Aminotransferase 21 U/L (0-33); Albumin Level 3.7 g/dL (3.5-5.2); Alkaline Phosphatase 53 U/L (35-105); Anion Gap 13.8 (5-19); Aspartate Amino Transferase 36 U/L (0-32); Blood Urea Nitrogen 18 mg/dL (8-23); Calcium 8.7 mg/dL (8.5-10.5); Carbon Dioxide 23 mmol/L (22-29); Chloride 108 mmol/L (98-107); Globulin 2.6 g/dL (1.3-4.6); Glucose 100 mg/dL (65-115); Magnesium 1.8 mg/dL (1.7-2.3); Osmolality Calculated 294 mOsm/kg (285-295); Potassium 3.8 mmol/L (3.5-5.1); Sodium 141 mmol/L (136-145); Total Bilirubin 0.3 mg/dL (0.15-1.2); Total Protein 6.3 g/dL (6.6-8.7)
[2023-06-26] MEDS: pantoprazole DR 40 mg Tablet PO (08:12)
[2023-06-26] MEDS: enoxaparin 60 mg/0.6 mL Syringe SUBCUT ×2 (08:12→21:52)
--- NOTE | 2023-06-26 08:54 | PM.PN ---
Subjective Subjective: Patient has been doing well. no chest pain. Rhythm is stable. Vitals/I&O/Wt Last Vital Signs Temp 98.9 F 06/26/23 08:16 Pulse 81 06/26/23 06:50 Resp 22 H 06/26/23 06:50 BP 123/60 06/26/23 06:50 Pulse Ox 92 06/26/23 06:50 O2 Del Method Room Air 06/25/23 11:48 06/25/23 06/26/23 06/26/23 22:59 06:59 14:59 Intake Total 133.36 / 379.57 200 / 579.57 240 / 240 Output Total 150 / 150 325 / 475 Balance -16.64 / 229.57 -125 / 104.57 240 / 240 Weight last 48 hrs Weight 149 lb 9.6 oz Weight 145 lb Physical Exam Narrative: GENERAL: Patient is alert, awake and oriented x3. [] NECK: No jugular vein distension. [] HEENT: No cyanosis. No icterus. No pallor. [] HEART: Regular S1 and S2. No murmur, rub or gallop. [] LUNGS: Diminshed air entry CENTRAL NERVOUS SYSTEM: Grossly nonfocal. [] EXTREMITIES: Lower extremities with no edema bilaterally. Data 06/26/23 03:45 06/26/23 03:45 A&P Assessment and plan (1) Wide-complex tachycardia: SVT with aberrancy versus ventricular tachycardia. Has been staying in normal sinus rhythm today. We will continue amiodarone gtt. She will need coronary angiogram for ischemic work-up as LV systolic function had significantly decreased. She wanted to be medically treated initially and no ischemic work-up was done recently. She is staying in normal sinus rhythm. Plan for cardiac cath tomorrow. NPO past midnight. (2) Ischemic cardiomyopathy: Possible ischemic per history. However no recent work-up has been done. He wanted to be medically treated for it. Will likely need ICD placement. (3) Rheumatoid arthritis with rheumatoid factor 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 or systems involvement: May continue the current medications as it is. (4) Recurrent cerebrovascular accidents (CVAs): Continue anticoagulation (5) Atherosclerosis of coronary artery of [place] heart without angina pectoris: Will benefit from coronary angiogram. N.p.o. past midnight. (6) LV (left ventricular) mural thrombus: Patient is on long-term oral anticoagulation. This may be continued. Attestations Medical Necessity Statement*: Care expected to cross 2 midnights. Coding Level of Care Code Acute Code for Chg Fwd Diagnoses Wide-complex tachycardia R00.0 Ischemic cardiomyopathy I25.5 Rheumatoid arthritis with rheumatoid factor 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 or systems involvement M05.79 Recurrent cerebrovascular accidents (CVAs) I63.9 Atherosclerosis of coronary artery of [place] heart without angina pectoris I25.10 LV (left ventricular) mural thrombus I51.3
[2023-06-26] MEDS: FUROsemide 10 mg/mL SDV 2mL 20 MG IVP (11:01)
[2023-06-26] MEDS: amiodarone 200 mg Tablet 400 MG PO (12:26)
[2023-06-26] MEDS: metoprolol tartrate 1 mg/1 mL SDV 5 mL 5 MG IVP (13:26)
--- NOTE | 2023-06-26 13:46 | P.PN_ITS ---
Subjective Subjective: Evonne was seen earlier this morning, and again this afternoon. She had been feeling tired this morning, but no specific complaints. No chest discomfort. She was slightly short of breath. Medications: Reviewed: Yes Vitals/I&O/Wt Last Vital Signs Temp 98.9 F 06/26/23 08:16 Pulse 95 06/26/23 12:35 Resp 27 H 06/26/23 12:35 BP 134/72 06/26/23 12:35 Pulse Ox 92 06/26/23 12:35 O2 Del Method Room Air 06/25/23 11:48 06/25/23 06/26/23 06/26/23 22:59 06:59 14:59 Intake Total 133.36 / 379.57 200 / 579.57 480 / 480 Output Total 150 / 150 325 / 475 Balance -16.64 / 229.57 -125 / 104.57 480 / 480 Weight last 48 hrs Weight 67.857 kg Weight 65.771 kg Physical Exam Narrative: General exam is a white female, no distress Neck is supple no lymphadenopathy thyromegaly Cardiovascular regular rhythm, no murmur, frequent premature beats. Telemetry demonstrates frequent PVCs. Lungs a few faint posterior crackles Abdomen soft with positive bowel sounds. No obvious organomegaly Extremities no cyanosis clubbing or edema, cap refill brisk. Pulses intact Data 06/26/23 03:45 06/26/23 03:45 A&P Assessment and plan (1) Cardiac arrhythmia: Patient presents with tachycardia, which may represent SVT secondary to his regularity. Is slightly wide. While starting notes, she did go back into this rhythm this afternoon, and her QRS duration is approximately 153. Heart rate currently 160. She denies any chest discomfort. The emergency department tried Cardizem, esmolol, adenosine without result. Cardiology has been notified. Has been receiving amiodarone, which was to be converted to p.o. Unfortunately with recurrence of rhythm will visit with cardiology as this may need to be continued secondary to change in patient's status. Transfer out of the ICU will also be put on hold. Magnesium and TSH were normal this morning. As magnesium is 1.8 we will go ahead and give 1 g IV as she received some Lasix this morning. Her TSH has been performed which is slightly elevated Last echocardiogram was in April with an ejection fraction of 30 to 35%. We will obtain a limited echo this visit. Limited echo demonstrated EF approxim ately 45%, improved from prior. (2) Hypotension: Resolved. Holding benazepril, metoprolol initially. Metoprolol may need to be readded even with amiodarone. (3) Ischemic cardiomyopathy: Patient with history of underlying ischemic cardiomyopathy with EF of 30 to 35% and LV thrombus for which she had had a TIA in the past Continue full dose anticoagulation. Hold her apixaban currently, changed to Lovenox subcutaneous Continue statin EF on limited echo around 45% Lasix 20 mg IV x1. Slightly fluid overloaded. Check creatinine tomorrow (4) Acute kidney injury: Repeat CBC, CMP tomorrow Renal function improved Plan Other medical problems as outlined in past medical history Full code currently Lovenox will suffice for DVT prophylaxis Attestations Medical Necessity Statement*: Needs continued hospitalization secondary to recurrence of tachycardia, somewhat wide-complex. Other Coding Information 36 Diagnoses Cardiac arrhythmia I49.9 Hypotension I95.9 Ischemic cardiomyopathy I25.5 Acute kidney injury N17.9
[2023-06-26] MEDS: fentaNYL 50 mcg/mL INJ 2mL 100 MCG IVP (13:58)
[2023-06-26] MEDS: midazolam 1 mg/mL INJ 2 mL 2 MG IVP ×2 (13:58→16:00)
[2023-06-26] MEDS: LORazepam 2 mg/mL INJ 1 mL 0.25 MG IVP (14:00)
[2023-06-26] MEDS: magnesium sulfate premix 1 GM/100 ML PIGGYBACK IV (14:47)
[2023-06-26] MEDS: norepinephrine 4 MG/250 ML BAG 7.5 MG IV (15:00)
[2023-06-26] MEDS: lidocaine drip 2,000 MG/500 ML PREMIX 30 MG IV (15:00)
[2023-06-26] MEDS: midazolam hcl 100 MG/100 ML BAG IV ×2 (15:00→22:56)
--- NOTE | 2023-06-26 15:24 | XR_ITS ---
WS: [id number] Portable AP upright chest, 06/26/2023 Clinical Data: et tube Comparison: Portable chest, 06/25/2023 Findings: The endotracheal tube ends above the karen. There is a nasogastric tube which appears to c url in the fundus of the stomach. There are monitor leads over the chest wall. The pulmonary vascular ity is increased. The heart is at the upper limits of normal. There is a recording device overlying t he midportion of the chest. Impression: 1. Satisfactory placement of endotracheal tube and nasogastric tube. 2. Increased pulmonary vascularity.
--- NOTE | 2023-06-26 15:35 | XACV_ITS ---
Exam Room: [facility] Ht: 160 cm Wt: 68 kg BSA: 1.75 m2 Gender: Female : 1945 Exam Priority: Routine Procedure(s): Procedure Description: Diagnostic procedure Procedure Description: Coronary Angiography Procedure Description: Pressure Wire Diagnostic Cath Status: Urgent Diagnostic Findings * INDICATION: Wide complex tachycardia / possible ventricular tachycardia. * Left Main has no significant disease. * Left Anterior Descending has no significant disease. * Circumflex is medium sized vessel after takeoff of OM1. Distally circumflex artery has diffuse disease. OM1 is patent.. * Mid Right Coronary Artery: moderate 50% stenosis, CRISSY: 3 flow. * Coronary angiography shows right dominance. Interventional Findings * Procedure detail: We engaged RCA with JR4 guide catheter. Patient was already anticoagulated with Lovenox. After normalization, iFR wire was advanced into the distal vessel. iFR value of 0.95 was obtained. This was nonischemic. iFR wire and guide catheter were removed. Patient left the microbiological lab technician in a stable condition. . Conclusions 1. Moderate RCA stenosis. iFR is non-ischemic. Recommendations * We will transfer patient to tertiary care hospital for EP evaluation and possible ICD placement. Interventional RX Recommendation: medical therapy and/or counseling Diagnostic RX Recommendation: medical therapy and/or counseling Pressures Phase:Rest AO : 120 / 97 ( 109 ) @ 4:12:00 PM 119 / 99 ( 109 ) @ 4:16:00 PM 134 / 101 ( 117 ) @ 4:22:00 PM Clinical Evaluation EBL: 5mL-10mL Procedural Details Pre-Procedure Time Out. Identified patient by full name and date of as verbalized by the patient/guarantor. Does the consent match the physician's order: N/A Emergent; Informed Consent not obtained due to time critical life threat. Accurate & Complete Informed Consent: N/A Emergent. Inpatient/Outpatient History & Physical on Chart: N/A Emergent. If H&P is completed, is and addenduem needed: N/A Emergent; If yes, is the addendum complete: N/A Emergent. Visualize and Verify Site with Patient/Guarantor: N/A. Relevant Radiology Images available: N/A. Pre-op teaching completed and patient verbalized understanding. The risks, benefits, and alternatives of sedation and/or procedure were discussed by physician. The patient agrees to continue. Current Diagnosis : NSTEMI, Vtach. Procedure started. [facility] Clinical Fraility Score: 4: Vulnerable. PERRLA. Lungs clear x 5 lobes. Multiple views taken of left coronary artery. Chief Pilot Indications: Cardiac Arrhythmia. Cardiovascular Instability: Yes, if yes, Ventricular Arrhythmias. Correct patient, site and procedure confirmed by cath team. IV Site on Arrival: 20 gauge in the right wrist. IV Site on Arrival: 20 gauge in the right hand. IV Fluids: 0.9% NaCl at KVO. 200 mL infused prior to microbiological lab technician. Patient arrived to microbiological lab technician on a ventilator and will be managed by respiratiory. Baseline sample Acquired. HR: 115 BPM. Pt arrived to microbiological lab technician with levophed gtt infusing at 10mcg/min, Versed at 2mg/hr, NS 500ml bolus, Lidocaine gtt at 2mg/hr. bilateral groins was prepped with chloroprep then draped in the usual sterile fashion. Physician arrived. Physician scrubbed in. Immediate Pre-Procedure Time Out. Correct Patient: Yes; Correct Procedure: Yes; Correct Site: Yes; Correct Patient Position: Yes; Correct Supplies: Yes; Dried Flammable Prep: Yes; Blood Products Available: No;. Lidocaine 1% infiltrated to the right groin. Arterial access obtained with micropuncture set. A 5 [place] JL4 catheter in over wire. Catheter removed over the standard wire. A 5 [place] JR4 catheter in over wire. Multiple views taken of right coronary artery. Catheter removed over the standard wire. 6 [place] JR 4 guide catheter was inserted over the wire. iFR pressure wire advanced through guide catheter. iFR performed of mid RCA. iFR wire out. iFR mid RCA 0.95mmHg. Guide catheter out. A Right femoral angiogram was performed to determine safe placement of closure device. Lidocaine 1% infiltrated to the right groin. A Angio-Seal VIP ([facility] [facility]) was successful obtaining hemostatsis at the Right Femoral artery insertion site. EXP 11-17-2023 LOT #[id number]. Post Procedure: Pulses reassessed and unchanged. PERRLA. Strong, equal hand regional transportation manager bilaterally. No VTE prophylaxis required. Medication's Wasted: Heparin = 1000 unit. Total IV fluids: 200 mL. Pt family updated by Dr. Posada. Post-op diagnosis: Moderate mid RCA stenosis, Non-ischemic cardiomyopathy. Complications: None. Estimated blood loss: 5mL-10mL. Responsiveness - Normal response to verbal stimuli; alert and oriented, PERRLA. Airway - Unaffected, no intervention required; spontaneous ventilation. Circulation: W/N/L, pulses unchanged. Nausea/Vomiting: No. Procedure completed. Patient transferred by bed to ICU. Vital chart was stopped. Access Site Site: Right Femoral artery Sheath Size: 6 Fr Hemostasis Method: Angio-Seal VIP ([facility]) Hemostasis Success: Successful I, the attending physician, have reviewed and verified all procedure medications. Yes, all medications given per verbal order History/Risk Factors Hypertension: No Dyslipidemia: No Peripheral Arterial Disease (PAD): No Myocardial Infarction (MA): No Obesity: No Renal Disease: No Prior Interventions PCI: No CABG: No Valve Surgery: No Report Signatures Finalized by Moses Posada MD on 06/26/2023 06:06 PM
--- NOTE | 2023-06-26 15:39 | W.PM.EVENTAC ---
Event Note Event Note: Patient evaluated multiple times following the last note. She has had episode of sustained ventricular tachycardia, with no response to cardioversion. Cardiology has been evaluating the patient as well. She is now been given several amiodarone boluses, lidocaine drip is been initiated. She has been intubated, and is being sedated with Versed and fentanyl. Emergency department facilitated intubation, with glide scope. She is requiring norepinephrine to maintain blood pressure. A fluid bolus has been ordered. Their intention is to take her to angiogram lab soon. Her rhythm has now broke to sinus tachycardia at a rate of 110. Family has been informed. Additional 45 minutes of ICU care at bedside.
--- NOTE | 2023-06-26 15:56 | W.PM.OPSUD ---
Surgery/Procedure H&P Update DATE OF PROCEDURE: June 26, 2023 DATE H&P PERFORMED: 06/25/23 H&P UPDATE INFORMATION: I have reviewed H&P completed within last 30 days, I have examined patient prior to procedure and Changes to prior documentation as noted here CHANGES TO PREVIOUS DOCUMENTATION: Patient had presented with wide-complex tachycardia and was cardioverted. Differentials were SVT with aberrancy vs ventricular tachycardia. She was on amiodarone gtt. Troponins were elevated. She has a known LV dysfunction which she wanted medical therapy in the past. Started having Wide complex again refractory to cardioversion. Was intubated as was hypoxic. Plan for coronary angiogram with possible PCI. PREOP DIAGNOSIS: Wide complex tachycardia PRIMARY INDICATION FOR PROCEDURE: Wide complex tachycardia PLANNED PROCEDURE: Left heart cath with possible percutaneous coronary intervention PATIENT REASSESSED PRIOR TO SEDATION, WITH NO CHANGE NOTED: Yes OTHER PERTINENT EXAM FINDINGS: Intubated and sedated. Tachycardic
[2023-06-26] MEDS: fentaNYL 50 mcg/mL INJ 2mL IVP (15:58)
[2023-06-26] MEDS: succinylcholine 20 mg/mL SDV 10mL 80 MG IVP (16:00)
[2023-06-26] MEDS: amiodarone 50 mg/mL SDV 3 mL 150 MG IVP (16:05)
--- NOTE | 2023-06-26 16:11 | PC.NURSE ---
EVENT: Around 1500 Patient went into SVT see monitor. Dr. Posada and Dr. Loja notified and came bedside. Patient cardioverted. After first conversion patient maintained NSR to Sinus tach for approximately 15 mins then went into Vtach and sustained. Dr. Posada and Dr. Loja still bedside, after 3 more rounds of cardioversion attempts, decision to intubate patient by providers. Dr. Gregg came bedside to intubate, size 8 ET tube 23 at lip, inserted OG tube, verified placement by chest xray. See MAR for medication administration. Patient taken to terrazzo laborer per Dr. Posada and terrazzo laborer team. Patient left ICU to terrazzo laborer at approximately 1605.
--- NOTE | 2023-06-26 17:23 | PM.CCN ---
Critical Care Event Note Asked by Dr. Orozco to intubate the patient and the ICU. The patient was in sustained arrhythmia and was requiring synchronized cardioversion multiple times.. Critical Care Time Code activated: No Critical Care Time (min): 0 Procedures Intubation Time out performed: Yes Sedative: versed Paralytic: succinylcholine Mg given: 90 Laryngoscope: fiber optic video scope ET tube size: 8 ET tube uncuffed: No Tube secured depth (cm): 21 Tube secured location: teeth Tube placement confirmation: visualized tube passing through cords, equal breath sounds bilaterally, no breath sounds over epigastrium, confirmation by capnometry and color change noted Patient tolerated procedure: well Additional comments: First attempt with direct laryngoscope patient was slightly inclined in the bed and esophageal intubation. There was no color change and breath sounds over the epigastrium was recognized immediately the tube was removed and patient was reintubated successfully of the second attempt. The different ET tube was used on the second attempt. After the second attempt there was good color change and capnometer good breath sounds and improving oxygen saturation Coding Level of Care Code Acute Code for [facility]
--- NOTE | 2023-06-26 17:41 | P.PCN_ITS ---
Procedure Note: Date of procedure: 06/26/23 Pre-procedure diagnosis: Wide- complex tachycardia Post-procedure diagnosis: other (Normal in sinus rhythm) Procedure: Cardioversion:Patient was becoming very symptomatic with wide-complex tachyca rdia and heart rate in the 160-180 range. We decided to perform cardioversion. She was sedated with Versed and fentanyl. We performed synchronized DCCV with 100 Joules and she successfully converted back to normal sinus rhythm. Performing Provider: Moses Posada Complications: None Condition: stable Disposition: ICU Coding [facility]
[2023-06-26 17:51] LABS: ABG PCO2 31.9 mmHg (35-45); ABG PH Result 7.42 (7.35-7.45); Arterial Blood Gas Hematocrit 38.9 % (37-47); Base Excess ABG -3.3 mmol/L (-2.0-2.0); Blood Gas Allen Test Pos; Blood Gas Operator Identificat CAK; Blood Gas Sample Site Brachial, left; Blood Gas Sample Type Arterial; Blood Gas Tidal Volume 0.45; HCO3 ABG 20.4 mmol/L (22-26); Oxygen Device VENT; PO2 ABG 67.9 mmHg (80.0-100.0); PO2 FiO2 Ratio Arterial Blood 0
--- NOTE | 2023-06-26 17:55 | P.MISC_ITS ---
Miscellaneous Note Purpose of Documentation: Event note Note: Patient started going into wide-complex tachycardia. She was cardioverted as oxygen saturations started dropping and became significantly short of breath. She stayed in normal sinus rhythm for 10 to 20 minutes and then converted back into wide-complex tachycardia at heart rate of 180 bpm. This time it was refractory to cardioversion. She was on amiodarone drip. Lidocaine drip was added. However given persistent heart rate over 180 bpm with wide-complex tachycardia, we decided to proceed with intubation as she was hemodynamically becoming unstable. Her heart rate improved. We took her to cardiac Obstetric Anaesthetist to assess coronary angiogram. Left main artery, LAD and left circumflex artery did not have obstructive CAD. RCA had a mid 50% stenosis. iFR was negative. Her recent echocardiogram that showed EF of 30 to 35%. With wide-complex tachycardia, patient needs EP evaluation/study and ICD placement. Continue amiodarone and lidocaine drip. Continue anticoagulation. We will plan on transferring to tertiary care hospital.
--- NOTE | 2023-06-26 19:31 | PM.TDS ---
Transfer Summary Providers Date of Admission: 06/25/23 10:22 Date of Discharge/Transfer: 06/26/23 Attending Provider at Admission: Олег Loja MD Attending Provider at Transfer: Олег Loja MD Primary Care Provider: Shannan Rios MD Transfer Plans: Anticipated date of transfer: 06/26/23. Diagnoses at Discharge Discharge Diagnosis (1) Wide-complex tachycardia: Status: Acute (2) Ischemic cardiomyopathy: Status: Acute (3) Rheumatoid arthritis with rheumatoid factor 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 or systems involvement: Status: Acute (4) Recurrent cerebrovascular accidents (CVAs): Status: Acute (5) Atherosclerosis of coronary artery of [place] heart without angina pectoris: Status: Acute (6) LV (left ventricular) mural thrombus: Status: Acute Reason for Visit Reason for Visit low bp, high heart rate Hospital Course Hospital Course Evonne is a 77-year-old white female who presented to the hospital on June 25 with palpitations and was found to be in a tachycardia, intraventricular conduction delay, with rate of 170. The emergency department physician tried diltiazem, esmolol, adenosine and when heart rate was 220 cardioverted secondary to patient instability. With this she was in sinus rhythm. She was given amiodarone. She was transferred to the ICU. She had past history of ischemic cardiomyopathy with EF of 30 to 35%. On a limited echocardiogram done on admission, EF was approximately 45% and there was mild diffuse hypokinesia of the mid and apical septum and anterior septum and LV apex. She remained relatively stable, until the afternoon of June 26. At that time cardiac arrhythmia recurred, wider complex. Electrolytes including potassium, TSH, magnesium were normal on admission and magnesium and TSH were normal on day of recurrence of arrhythmia. It was difficult to delineate this from ventricular tachycardia. Cardiology evaluated her, cardioverted her. Ultimately rhythm recurred. Lidocaine was initiated along with amiodarone. Patient received another dose, bolus of amiodarone of 150 mg. She received another 2 cardioversions, with return to sinus tachycardia and she was intubated and sedated secondary to concerns of recalcitrant ventricular tachycardia with instability. Interventional cardiology took her to angiogram suite where no tension was needed. There was an RCA lesion of approximately 50%. In my discussions with cardiology they believe transfer to a tertiary care center was needed that would have the ability to place a defibrillator, and also provide electrophysiology care and even consideration of ventricular tachycardia ablation as she had failed amiodarone, and was now on amiodarone and lidocaine. I discussed the case with Dr. Saldana at [facility] in [facility]. Patient was graciously excepted, and transfer arrangements were made by flight. I discussed with the patient's family regarding the risks and benefits of transfer. At time of transfer she was on 2 of norepinephrine, 2 of lidocaine, 1 of amiodarone. Physical Exam Narrative: Intubated and sedated Neck is supple Cardiovascular tachycardic, regular Lungs clear Abdomen is soft Extremities no sinus clubbing edema Urinary Catheter Management: Suggs: Cath Placed During This Visit: yes Reason for Continuing Indwelling Catheter: Accurate Measurement of Urinary Output in Critically Ill Patients Urinary Catheter Date of Insertion: 06/26/23 Urinary Catheter Time of Insertion: 15:40 TS Data Studies Completed and Pending Pending at discharge Category Date Time Status CBC Auto Diff [Complete Blood Count w/Auto] AM LABS Lab 06/27/23 04:00 Ordered CMP [Comprehensive Metabolic Panel] AM LABS Lab 06/27/23 04:00 Ordered Magnesium AM LABS Lab 06/27/23 04:00 Ordered Completed Studies During Hospitalization Category Date Time Status DATA ANALYTICS SPECIALIST request for service Routine Exams 06/26/23 15:35 Completed CXRP [XR chest 1V portable [id number]] Stat Exams 06/26/23 15:24 Completed XR chest 1V portable [id number] Stat Exams 06/25/23 09:55 Completed CV. echo limited [id number] Routine Ultrasound 06/25/23 11:21 Completed Laboratory Last Values WBC 9.06 10^3/uL (3.29-11.43) 06/26/23 03:45 RBC 3.99 10^6/uL (3.85-5.65) 06/26/23 03:45 Hgb 12.10 g/dL (11.27-16.99) 06/26/23 03:45 Hct 36.9 % (36-47) 06/26/23 03:45 MCV 92.5 fl (85-98) 06/26/23 03:45 MCH 30.3 pg (27-33) 06/26/23 03:45 MCHC 32.8 g/dL (30-55) 06/26/23 03:45 RDW 13.9 % (12.1-15.1) 06/26/23 03:45 Plt Count 250 10^3/cmm (157-399) 06/26/23 03:45 MPV 10.6 fL (7.4-10.4) H 06/26/23 03:45 Neut % (Auto) 71.8 % 06/26/23 03:45 Lymph % (Auto) 21.3 % 06/26/23 03:45 Alfalfa % (Auto) 5.4 % 06/26/23 03:45 Eos % (Auto) 1.0 % 06/26/23 03:45 Baso % (Auto) 0.3 % 06/26/23 03:45 Neut # (Auto) 6.50 10^3/uL (1.8-7.7) 06/26/23 03:45 Lymph # (Auto) 1.9 10^3/uL (0.8-4.8) 06/26/23 03:45 Alfalfa # (Auto) 0.5 10^3/uL (0.2-0.9) 06/26/23 03:45 Eos # (Auto) 0.1 10^3/uL (0.0-0.8) 06/26/23 03:45 Baso # (Auto) 0.0 10^3/uL (0.0-0.1) 06/26/23 03:45 Nucleated RBC % (auto) 0 % 06/26/23 03:45 Nucleated RBCs # 0.0 /100WBC 06/26/23 03:45 Specimen Type Arterial 06/26/23 17:40 Sample Site Brachial, left 06/26/23 17:40 ABG pH 7.42 (7.35-7.45) 06/26/23 17:40 ABG pCO2 31.9 mmHg (35-45) L 06/26/23 17:40 ABG pO2 67.9 mmHg (80.0-100.0) L 06/26/23 17:40 ABG PO2/FiO2 Ratio 0 06/26/23 17:40 ABG HCO3 20.4 mmol/L (22-26) L 06/26/23 17:40 ABG Base Excess -3.3 mmol/L (-2.0-2.0) L 06/26/23 17:40 Alessio Test Pos 06/26/23 17:40 Hematocrit 38.9 % (37-47) 06/26/23 17:40 O2 Delivery Device Vent 06/26/23 17:40 FiO2 40.0 % 06/26/23 17:40 Tidal Volume 0.45 06/26/23 17:40 PEEP 5.0 cmH20 06/26/23 17:40 Health And Safety Specialist ID Cak 06/26/23 17:40 Sodium 141 mmol/L (136-145) 06/26/23 03:45 Potassium 3.8 mmol/L (3.5-5.1) 06/26/23 03:45 Chloride 108 mmol/L (98-107) H 06/26/23 03:45 Carbon Dioxide 23 mmol/L (22-29) 06/26/23 03:45 Anion Gap 13.8 (5-19) 06/26/23 03:45 BUN 18 mg/dL (8-23) 06/26/23 03:45 Creatinine 0.9 mg/dL (0.5-0.9) 06/26/23 03:45 GFR Calculation Not Reportable 06/26/23 03:45 Glucose 100 mg/dL (65-115) 06/26/23 03:45 Calculated Osmolality 294 mOsm/kg (285-295) 06/26/23 03:45 Calcium 8.7 mg/dL (8.5-10.5) 06/26/23 03:45 Magnesium 1.8 mg/dL (1.7-2.3) 06/26/23 03:45 Total Bilirubin 0.3 mg/dL (0.15-1.2) 06/26/23 03:45 AST 36 U/L (0-32) H 06/26/23 03:45 ALT 21 U/L (0-33) 06/26/23 03:45 Alkaline Phosphatase 53 U/L (35-105) 06/26/23 03:45 Troponin T Baseline 488 ng/L (0-10) H* 06/25/23 08:33 Troponin T 120 Minute 451.3 ng/L (0-10) H 06/25/23 10:22 Delta Troponin T -36.7 ABS# (0-10) L 06/25/23 10:22 Troponin T Hi Sens 6Hr 573.7 ng/L (0-10) H 06/25/23 14:32 Troponin T Hi Sens 6Hr Delta 85.7 ng/L (0-12) H* 06/25/23 14:32 Total Protein 6.3 g/dL (6.6-8.7) L 06/26/23 03:45 Albumin 3.7 g/dL (3.5-5.2) 06/26/23 03:45 Globulin 2.6 g/dL (1.3-4.6) 06/26/23 03:45 TSH 7.09 uIU/mL (0.27-4.20) H 06/25/23 08:33 Urine Color Yellow (Yellow) 06/25/23 13:58 Urine Appearance Clear (CLEAR) 06/25/23 13:58 Urine pH 5 (5-7) 06/25/23 13:58 Ur Specific [place] 1.015 (1.005-1.030) 06/25/23 13:58 Urine Protein Neg (Negative) 06/25/23 13:58 Urine Glucose (UA) Norm (Normal) 06/25/23 13:58 Urine Ketones Negative (Negative) 06/25/23 13:58 Urine Blood Neg (Negative) 06/25/23 13:58 Urine Nitrate Negative (Negative) 06/25/23 13:58 Urine Bilirubin Neg (Negative) 06/25/23 13:58 Urine Urobilinogen Norm mg/dL (Negative) 06/25/23 13:58 Ur Leukocyte Esterase Negative (Negative) 06/25/23 13:58 Recent Clincial Data Last Vital Signs Temp 98.9 F 06/26/23 08:16 Pulse 115 H 06/26/23 18:00 Resp 18 06/26/23 16:58 BP 110/64 06/26/23 18:00 Pulse Ox 94 06/26/23 18:00 O2 Del Method Room Air 06/25/23 11:48 FiO2 40 06/26/23 18:00 Vital Signs Temp Pulse Resp BP Pulse Ox FiO2 06/26/23 18:00 115 H 110/64 94 06/26/23 17:55 115 H 107/64 94 06/26/23 17:50 115 H 107/64 94 06/26/23 17:45 117 H 107/64 94 06/26/23 17:40 114 H 107/64 94 06/26/23 17:35 114 H 107/64 94 06/26/23 17:30 115 H 118/68 94 06/26/23 17:25 114 H 118/68 94 06/26/23 17:20 115 H 118/68 94 06/26/23 17:15 114 H 118/68 93 06/26/23 17:10 114 H 119/75 93 06/26/23 17:05 114 H 119/75 93 06/26/23 17:00 115 H 119/75 95 06/26/23 16:55 115 H 131/81 96 06/26/23 16:50 113 H 16 141/81 99 06/26/23 16:45 141/81 06/26/23 16:40 116/72 06/26/23 16:35 116/72 06/26/23 16:30 116/72 06/26/23 16:25 116/72 06/26/23 16:20 116/72 06/26/23 16:15 116/72 06/26/23 18:00 40 06/26/23 16:58 18 98 40 06/26/23 16:30 18 99 100 06/26/23 16:10 116/72 06/26/23 16:05 116/72 06/26/23 16:00 116/72 06/26/23 15:55 116/72 06/26/23 15:50 115 H 12 112/75 98 06/26/23 15:45 115 H 14 114/85 97 06/26/23 15:40 116 H 16 99/73 95 06/26/23 15:35 116 H 12 78/59 95 06/26/23 15:30 172 H 9 L 57/46 94 06/26/23 15:25 178 H 19 H 125/96 96 06/26/23 15:20 173 H 13 91 06/26/23 15:15 179 H 19 H 88/73 95 06/26/23 15:10 178 H 29 H 101/82 96 06/26/23 15:05 180 H 26 H 92/62 97 06/26/23 15:00 104 H 22 H 92/62 96 06/26/23 14:55 112 H 22 H 99/63 96 06/26/23 14:50 117 H 21 H 99/63 96 06/26/23 14:45 121 H 22 H 107/64 97 06/26/23 14:40 116 H 21 H 95/60 97 06/26/23 14:35 117 H 23 H 109/61 97 06/26/23 14:30 112 H 23 H 109/63 97 06/26/23 14:25 112 H 24 H 106/64 96 06/26/23 14:20 68 24 H 118/58 97 06/26/23 14:15 68 25 H 120/62 96 06/26/23 14:10 69 27 H 113/56 96 06/26/23 14:05 70 28 H 108/65 96 06/26/23 14:00 71 29 H 114/63 95 06/26/23 13:55 73 44 H 128/68 95 06/26/23 13:50 153 H 43 H 147/75 90 06/26/23 13:45 153 H 31 H 101/67 83 L 06/26/23 13:40 160 H 33 H 115/71 92 06/26/23 13:35 163 H 33 H 120/82 90 06/26/23 13:30 160 H 34 H 116/83 90 06/26/23 13:25 157 H 24 H 129/93 92 06/26/23 13:20 162 H 29 H 125/84 92 06/26/23 13:15 163 H 26 H 132/64 92 06/26/23 13:10 92 27 H 132/64 93 06/26/23 13:05 90 31 H 132/64 94 06/26/23 13:00 90 31 H 94 06/26/23 12:55 89 31 H 93 06/26/23 12:50 93 31 H 93 06/26/23 12:45 96 20 H 134/72 94 06/26/23 12:40 94 25 H 134/72 90 06/26/23 12:35 95 27 H 134/72 92 06/26/23 12:30 99 24 H 134/72 93 06/26/23 12:25 123/82 06/26/23 12:20 123/82 06/26/23 12:15 85 22 H 148/71 96 06/26/23 12:10 95 33 H 148/71 91 06/26/23 12:05 98 23 H 148/71 95 06/26/23 12:00 81 29 H 95 06/26/23 11:55 92 30 H 96 06/26/23 11:50 93 24 H 94 06/26/23 11:45 89 19 H 139/72 95 06/26/23 11:40 91 30 H 139/72 95 06/26/23 11:35 139/72 06/26/23 11:30 84 20 H 133/69 94 06/26/23 11:25 86 24 H 133/69 95 06/26/23 11:20 84 22 H 133/69 96 06/26/23 11:15 87 14 133/69 94 06/26/23 11:10 84 25 H 97/64 94 06/26/23 11:05 89 34 H 97/64 95 06/26/23 11:00 82 23 H 135/64 95 06/26/23 10:55 81 25 H 135/64 93 06/26/23 10:50 83 26 H 135/64 95 06/26/23 10:45 86 24 H 131/61 94 06/26/23 10:40 84 22 H 131/61 95 06/26/23 10:35 90 22 H 131/61 94 06/26/23 10:30 131/61 06/26/23 10:25 84 27 H 131/61 94 06/26/23 10:20 87 26 H 131/61 95 06/26/23 10:15 87 26 H 131/61 93 06/26/23 10:10 90 28 H 98/81 95 06/26/23 10:05 86 20 H 98/81 95 06/26/23 10:00 163 H 27 H 121/82 95 06/26/23 09:55 81 24 H 121/82 94 06/26/23 09:50 82 24 H 121/82 94 06/26/23 09:45 85 23 H 128/56 94 06/26/23 09:40 81 27 H 128/56 94 06/26/23 09:35 86 30 H 128/56 95 06/26/23 09:30 86 29 H 158/64 96 06/26/23 09:25 114 H 25 H 158/64 95 06/26/23 09:20 93 25 H 158/64 94 06/26/23 09:15 99 31 H 142/66 94 06/26/23 09:10 94 29 H 142/66 94 06/26/23 09:05 94 29 H 142/66 94 06/26/23 09:00 91 30 H 158/68 94 06/26/23 08:55 90 26 H 158/68 93 06/26/23 08:50 91 31 H 158/68 93 06/26/23 08:45 91 26 H 94 06/26/23 08:40 87 27 H 95 06/26/23 08:35 92 29 H 92 06/26/23 08:30 87 34 H 61/39 92 06/26/23 08:25 86 23 H 61/39 91 06/26/23 08:20 93 31 H 61/39 92 06/26/23 08:15 86 25 H 114/62 93 06/26/23 08:10 78 22 H 114/62 94 06/26/23 08:05 79 21 H 114/62 94 06/26/23 08:00 79 17 119/76 94 06/26/23 07:55 77 25 H 119/76 93 06/26/23 07:50 79 10 L 119/76 95 06/26/23 07:45 84 18 119/76 94 06/26/23 07:40 86 29 H 131/62 92 06/26/23 07:35 88 31 H 131/62 93 06/26/23 08:16 98.9 F Intake & Output/Weight 06/24/23 06/25/23 06/26/23 06/27/23 06:59 06:59 06:59 06:59 Intake Total 579.57 / 579.57 808.5 / 808.5 Output Total 475 / 475 Balance 104.57 / 104.57 808.5 / 808.5 Weight 67.857 kg Vitals Last Vital Signs Temp 98.9 F 06/26/23 08:16 Pulse 115 H 06/26/23 18:00 Resp 18 06/26/23 16:58 BP 110/64 06/26/23 18:00 Pulse Ox 94 06/26/23 18:00 O2 Del Method Room Air 06/25/23 11:48 FiO2 40 06/26/23 18:00 TS Medications Medications Amiodarone HCl (Amiodarone 200 Mg Tablet) 400 mg PO BID JACK Last Admin: 06/26/23 11:54 Dose: Not Given Aspirin (Aspirin 325 Mg Tablet) 325 mg PO ONCE ONE Stop: 06/27/23 07:01 Atorvastatin Calcium (Atorvastatin 40 Mg Tablet) 20 mg PO BEDTIME JACK Last Admin: 06/25/23 21:16 Dose: 20 mg Diphenhydramine HCl (Diphenhydramine 50 Mg Capsule) 50 mg PO ONCE ONE Stop: 06/27/23 07:01 Enoxaparin Sodium (Enoxaparin 60 Mg/0.6 Ml Syringe) 60 mg SUBCUT Q12H JACK Last Admin: 06/26/23 08:12 Dose: 60 mg Folic Acid (Folic Acid 1 Mg Tablet) 1 mg PO BEDTIME JACK Last Admin: 06/25/23 21:16 Dose: 1 mg Sodium Chloride (Sodium Chloride 0.9%) 1,000 mls @ 50 mls/hr IV .Q20H ONE Stop: 06/28/23 02:59 Amiodarone HCl/Dextrose (Nexterone) 360 mg in 200 mls @ 0 mls/hr IV .Q0M JACK; Protocol Last Admin: 06/26/23 16:57 Dose: 1 mg/min, 33.33 mls/hr Midazolam HCl (Versed) 100 mg in 100 mls @ 0 mls/hr IV .Q0M JACK; Protocol Last Titration: 06/26/23 16:00 Dose: 2 mg/hr, 2 mls/hr Fentanyl (Sublimaze) 1,000 mcg in 100 mls @ 0 mls/hr IV .Q0M JACK; Protocol norepinephrine (Levophed) 4 mg in 250 mls @ 0 mls/hr IV .Q0M JACK; Protocol Last Titration: 06/26/23 18:48 Dose: 2 mcg/min, 7.5 mls/hr Lidocaine HCl/Dextrose (Lidocaine Drip) 2,000 mg in 500 mls @ 30 mls/hr IV .[id number] REPLACED BY [facility] Last Admin: 06/26/23 15:00 Dose: 2 mg/min, 30 mls/hr Metoprolol Tartrate (Metoprolol Tartrate 25 Mg Tablet) 25 mg PO BID@0900,2100 REPLACED BY [facility] Ondansetron HCl (Ondansetron 2 Mg/Ml Sdv 2 Ml) 4 mg IVP Q6H PRN PRN Reason: NAUSEA AND VOMITING Pantoprazole Sodium (Pantoprazole Dr 40 Mg Tablet) 40 mg PO DAILY JACK Last Admin: 06/26/23 08:12 Dose: 40 mg Discontinued Medications Adenosine (Adenosine 3 Mg/Ml Sdv 2ml) 6 mg IVP ONCE ONE Stop: 06/25/23 09:53 Last Admin: 06/25/23 09:14 Dose: 6 mg Adenosine (Adenosine 3 Mg/Ml Sdv 2ml) 12 mg IVP ONCE ONE Stop: 06/25/23 09:53 Last Admin: 06/25/23 09:18 Dose: 12 mg Amiodarone HCl (Amiodarone 200 Mg Tablet) 400 mg PO ONCE ONE Stop: 06/26/23 11:53 Last Admin: 06/26/23 12:26 Dose: 400 mg Amiodarone HCl (Amiodarone 50 Mg/Ml Sdv 3 Ml) 150 mg IVP ONCE ONE Stop: 06/26/23 16:05 Last Admin: 06/26/23 16:05 Dose: 150 mg Digoxin (Digoxin 250 Mcg/Ml Inj 2 Ml) 500 mcg IVP NOW ONE Stop: 06/26/23 14:49 Last Admin: 06/26/23 15:58 Dose: Not Given Diltiazem HCl (Diltiazem 5 Mg/Ml Sdv 5 Ml) 20 mg IVP ONCE ONE Stop: 06/25/23 08:31 Last Admin: 06/25/23 08:37 Dose: 20 mg Enoxaparin Sodium (Enoxaparin 80 Mg/0.8 Ml Syringe) 70 mg SUBCUT ONCE ONE Stop: 06/25/23 09:21 Last Admin: 06/25/23 09:52 Dose: Not Given Fentanyl (Fentanyl 50 Mcg/Ml Inj 2ml) 100 mcg IVP ONCE ONE Stop: 06/25/23 09:29 Last Admin: 06/25/23 09:51 Dose: Not Given Fentanyl (Fentanyl 50 Mcg/Ml Inj 2ml) 50 mcg IVP ONCE ONE Stop: 06/25/23 09:54 Last Admin: 06/25/23 09:39 Dose: 50 mcg Fentanyl (Fentanyl 50 Mcg/Ml Inj 2ml) 100 mcg IVP NOW ONE Stop: 06/26/23 13:50 Last Admin: 06/26/23 13:58 Dose: 100 mcg Fentanyl (Fentanyl 50 Mcg/Ml Inj 2ml) Confirm Administered Dose [address] .[facility] ONE Stop: 06/26/23 13:50 Fentanyl (Fentanyl 50 Mcg/Ml Inj 2ml) 50 mcg IVP ONCE ONE Stop: 06/26/23 15:08 Last Admin: 06/26/23 15:58 Dose: 50 mcg Fentanyl (Fentanyl 50 Mcg/Ml Inj 2ml) Confirm Administered Dose 100 mcg .ROUTE .STK-MED ONE Stop: 06/26/23 15:30 Furosemide (Furosemide 10 Mg/Ml Sdv 2ml) 20 mg IVP ONCE ONE Stop: 06/26/23 10:06 Last Admin: 06/26/23 11:01 Dose: 20 mg Heparin Sodium (Porcine) (Heparin 5,000 Unit/Ml Inj 1 Ml) Confirm Administered Dose 5,000 unit .ROUTE .STK-MED ONE Stop: 06/26/23 15:31 Diltiazem HCl 100 mg/ Sodium (Chloride) 100 mls @ 0 mls/hr IV .Q0M JACK; Protocol Last Titration: 06/25/23 09:13 Dose: 0 mg/hr, 0 mls/hr Esmolol HCl (Brevibloc Drip) 2,500 mg in 250 mls @ 0 mls/hr IV .Q0M JACK; Protocol Last Titration: 06/25/23 09:38 Dose: 0 mcg/kg/min, 0 mls/hr Amiodarone HCl/Dextrose (Nexterone) 360 mg in 200 mls @ 0 mls/hr IV .Q0M JACK; Protocol Last Titration: 06/26/23 18:40 Dose: Infused Magnesium Sulfate/Dextrose (Magnesium Sulfate Premix) 1 gm in 100 mls @ 200 mls/hr IV ONCE ONE Stop: 06/26/23 14:18 Last Infusion: 06/26/23 16:01 Dose: Infused norepinephrine (Levophed) Confirm Administered Dose 4 mg in 250 mls @ as directed .ROUTE .STK-MED ONE Stop: 06/26/23 15:19 Lidocaine HCl (Xylocaine) Confirm Administered Dose 3 mls @ as directed .ROUTE .STK-MED ONE Stop: 06/26/23 15:32 Lidocaine HCl (Xylocaine) Confirm Administered Dose 6 mls @ as directed .ROUTE .STK-MED ONE Stop: 06/26/23 16:02 Lorazepam (Lorazepam 2 Mg/Ml Inj 1 Ml) Confirm Administered Dose 2 mg .ROUTE .STK-MED ONE Stop: 06/26/23 13:45 Lorazepam (Lorazepam 2 Mg/Ml Inj 1 Ml) 0.25 mg IVP NOW ONE Stop: 06/26/23 14:00 Last Admin: 06/26/23 14:00 Dose: 0.25 mg Metoprolol Tartrate (Metoprolol Tartrate 1 Mg/1 Ml Sdv 5 Ml) 5 mg IVP ONCE ONE Stop: 06/26/23 13:19 Last Admin: 06/26/23 13:26 Dose: 5 mg Metoprolol Tartrate (Metoprolol Tartrate 1 Mg/1 Ml Sdv 5 Ml) Confirm Administered Dose 5 mg .ROUTE .STK-MED ONE Stop: 06/26/23 13:16 Midazolam HCl (Midazolam 1 Mg/Ml Inj 2 Ml) 6 mg IVP ONCE ONE Stop: 06/25/23 09:29 Last Admin: 06/25/23 09:51 Dose: Not Given Midazolam HCl (Midazolam 1 Mg/Ml Inj 2 Ml) 3 mg IVP ONCE ONE Stop: 06/25/23 09:54 Last Admin: 06/25/23 09:39 Dose: 3 mg Midazolam HCl (Midazolam 1 Mg/Ml Inj 2 Ml) 2 mg IVP NOW ONE Stop: 06/26/23 13:50 Last Admin: 06/26/23 13:58 Dose: 2 mg Midazolam HCl (Midazolam 1 Mg/Ml Inj 2 Ml) Confirm Administered Dose 2 mg .ROUTE .STK-MED ONE Stop: 06/26/23 13:50 Midazolam HCl (Midazolam 1 Mg/Ml Inj 2 Ml) 2 mg IVP ONCE ONE Stop: 06/26/23 15:08 Last Admin: 06/26/23 16:00 Dose: 2 mg Midazolam HCl (Midazolam 1 Mg/Ml Inj 2 Ml) Confirm Administered Dose 2 mg .ROUTE .STK-MED ONE Stop: 06/26/23 15:30 Nitroglycerin (Nitroglycerin 5 Mg/Ml Sdv 10 Ml) Confirm Administered Dose 50 mg .ROUTE .STK-MED ONE Stop: 06/26/23 15:44 Succinylcholine Chloride (Succinylcholine 20 Mg/Ml Sdv 10ml) 80 mg IVP NOW ONE Stop: 06/26/23 16:00 Last Admin: 06/26/23 16:00 Dose: 80 mg Allergies TPA Allergy (Uncoded 04/26/23 11:06) Unknown PT STATES IT MADE HER MOUTH SWELL Home Medications cholecalciferol (vitamin D3) 50 mcg (2,000 unit) tablet 2,000 unit PO BEDTIME 08/21/19 [History Confirmed 06/25/23] multivitamin 1 tab PO BEDTIME 06/12/21 [History Confirmed 06/25/23] prednisone 10 mg tablet See Rx Instructions PO .COMPLEX PRN joint pain #30 tabs 09/19/21 [Rx Confirmed 06/25/23] omega 9-nla-eve-fish oil 60 mg-90 mg-500 mg capsule (Fish Oil) 1 cap PO BEDTIME 07/31/22 [History Confirmed 06/25/23] methotrexate sodium 2.5 mg tablet 5 mg PO Q7D #20 tabs 09/24/22 [Rx Confirmed 06/25/23] folic acid 1 mg tablet 1 mg PO BEDTIME #90 tabs 11/21/22 [Rx Confirmed 06/25/23] apixaban 5 mg tablet (Eliquis) 5 mg PO BID #180 tabs 04/26/23 [Rx Confirmed 06/25/23] benazepril 10 mg tablet 10 mg PO DAILY #90 tabs 04/26/23 [Rx Confirmed 06/25/23] simvastatin 40 mg tablet 40 mg PO BEDTIME #90 tabs 04/26/23 [Rx Confirmed 06/25/23] benazepril 5 mg tablet 5 mg PO DAILY 06/25/23 [History Confirmed 06/25/23] metoprolol succinate 25 mg tablet,extended release 24 hr 25 mg PO BEDTIME 06/25/23 [History Confirmed 06/25/23] nitroglycerin 0.4 mg sublingual tablet (Nitrostat) 0.4 mg sublingual Q5M PRN Chest Pain 06/25/23 [History Confirmed 06/25/23] Discharge Plan Discharge Patient Disposition: Home Condition: Stable Prescriptions: No Action cholecalciferol (vitamin D3) 2,000 unit tablet 2,000 unit PO BEDTIME prednisone 10 mg tablet See Rx Instructions PO .COMPLEX PRN (Reason: joint pain) Qty: 30 1RF Rx Instructions: TAKE 1 OR 2 TABS PO DAILY FOR 3-7 DAYS NEEDED FOR JOINT PAIN OR FLARE UPS omega 0-aof-pqg-fish oil [Fish Oil] 60-90-500 mg capsule 1 cap PO BEDTIME methotrexate sodium 2.5 mg tablet 5 mg PO Q7D Qty: 20 2RF Rx Instructions: On Sundays Eliquis 5 mg tablet 5 mg PO BID Qty: 180 3RF benazepril 10 mg tablet 10 mg PO DAILY Qty: 90 3RF Rx Instructions: (dr nguyen 06/24/23 changed to 5mg daily 06/24/23 pt not started 5mg dose as of 06/25/23) simvastatin 40 mg tablet 40 mg PO BEDTIME Qty: 90 3RF folic acid 1 mg tablet 1 mg PO BEDTIME Qty: 90 3RF multivitamin Tablet 1 tab PO BEDTIME benazepril 5 mg tablet 5 mg PO DAILY Rx Instructions: not started as of 06/25/23 replaces 10mg dose Nitrostat 0.4 mg Tablet, Sublingual 0.4 mg SUBLINGUAL Q5M PRN (Reason: Chest Pain) Rx Instructions: do not exceed 3 doses per episode metoprolol succinate 25 mg tablet extended release 24 hr 25 mg PO BEDTIME Discharge Orders: Transfer Out of Facility (Order); Ordered 06/26/23 Ordered By: Олег Loja Referrals: Shannan Rios MD [Primary Care Provider] - Patient Instructions: Opioid Safety Transfer Attestations Time Spent in Transfer Care: greater than 30 min Quality Metrics Clinical Quality Measures [ No reported AMI, CVA or VTE this stay] Coding Level of Care Code 19716 Total time (in minutes) for Discharge: 49 Diagnoses Wide-complex tachycardia R00.0 Ischemic cardiomyopathy I25.5 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
[2023-06-26] MEDS: fentaNYL 1,000 MCG/100 ML BAG 2.5 MCG IV ×2 (20:09→22:56)
--- NOTE | 2023-06-26 21:39 | PC.NURSE ---
Received Bed at [facility] Bed 10. Report given to Maged @1999. [employer] declined transportation due to weather. Approval to seek fixed wing transport given by Dr. Loja. Received approval from [facility] transport out of [place]. Report given to Odilon with [employer] @0462. Family notified of transportation for patient. Order for Metoprolol verified with Dr. Loja who instructed us to hold medication. Patient remains ventilated and sedated with sinus heart rate of 110-115. BP stable on 2mcg/min levophed.
[2023-06-26] MEDS: folic acid 1 mg Tablet PO (21:51)
[2023-06-26] MEDS: atorvastatin 40 mg Tablet 20 MG PO (21:51)
--- NOTE | 2023-06-26 23:38 | PC.NURSE ---
Addendum entered by SN Vikas 06/27/23 00:09: Pt had gold bracelet on Right wrist and gold ring on Left hand at departure. Original Note: Fixed wing [employer] flight arrived on unit for transfer of patient at 2248. Patient prepped and departed the unit at 2335. Fentanyl, Versed, Amiodarone, supplied per personnel for back up supply. Last set of vitals HR 113, B/p 112/63, SpO2 98%, Temp 98.0
[2023-06-27 00:01] VITALS: BP 112/63; PULSE 113; RESP 14; TEMP 36.6; O2SAT 98
== END 2023-06-27 00:05 | disposition short-term general hospital (02) | DRG 287 ==
LOC: ER 09:14 → ICU 10:22
PROVIDERS: Internal Medicine; Admitting Provider Internal Medicine; Emergency Provider Family Medicine; PCP Internal Medicine; Visit Provider Internal Medicine
PROC: 5A2204Z Restoration of Cardiac Rhythm, Single (ICD-10-PCS; principal; 2023-06-26 16:00)
DX: R00.0 Tachycardia, unspecified (principal); N17.9 Acute kidney failure, unspecified; Z86.73 Personal history of transient ischemic attack (TIA), and cerebral infarction without residual deficits; I25.10 Atherosclerotic heart disease of native coronary artery without angina pectoris; Z95.5 Presence of coronary angioplasty implant and graft; H91.93 Unspecified hearing loss, bilateral; I10 Essential (primary) hypertension; E03.9 Hypothyroidism, unspecified; I25.5 Ischemic cardiomyopathy; I25.2 Old myocardial infarction; M05.79 Rheumatoid arthritis with rheumatoid factor 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 or systems involvement; Z87.891 Personal history of nicotine dependence; I51.3 Intracardiac thrombosis, not elsewhere classified; R09.02 Hypoxemia; I95.9 Hypotension, unspecified
CPT/HCPCS: 31500; 36415; 36600; 51702; 71045; 80053; 81003; 82803; 83735; 84443; 84484; 85025; 92960; 93005; 93308; 93454; 93571; 94002; 94799; 96365; 96366; 96372; 96375; 96376; 99291; 99292; A4222; A4570; C1760; C1769; C1887; C1894; J0153; J0282; J0283; J0330; J1644; J1650; J1940; J2001; J2060; J2250; J3010; J3475; J3490; Q9967

== ENCOUNTER → 2024-01-24 09:56 | Outpatient (BNVA) | payer MEDICARE, BC, SELFPAY | PROVIDERS: PCP Internal Medicine; Visit Provider Internal Medicine Cardiovascular Disease | DX: I25.10 Atherosclerotic heart disease of native coronary artery without angina pectoris (principal); Z98.890 Other specified postprocedural states; Z86.79 Personal history of other diseases of the circulatory system; Z95.5 Presence of coronary angioplasty implant and graft; I10 Essential (primary) hypertension; I51.3 Intracardiac thrombosis, not elsewhere classified; I65.21 Occlusion and stenosis of right carotid artery; I25.5 Ischemic cardiomyopathy; I47.10 Supraventricular tachycardia, unspecified; I25.2 Old myocardial infarction; Z87.891 Personal history of nicotine dependence; Z79.01 Long term (current) use of anticoagulants | CPT/HCPCS: 99214 ==

== ENCOUNTER 2024-02-13 22:06 | Inpatient (IN) | payer MEDICARE, BC, SELFPAY ==
[2024-02-13 22:10] VITALS: BP 146/103; PULSE 150; RESP 18; TEMP 37; O2SAT 95; BMI 26.5
--- NOTE | 2024-02-13 22:16 | XRR_ITS ---
PROCEDURE INFORMATION: Exam: XR Chest Exam date and time: 02/13/2024 10:24 PM Age: 78 years old Clinical indication: Shortness of breath and other: Tachycardia; Prior surgery; Surgery date: 6+ months; Surgery type: Pacemaker TECHNIQUE: Imaging protocol: Radiologic exam of the chest. Views: 1 view. COMPARISON: CR XR chest 1V portable [id number] 06/26/2023 4:36 PM FINDINGS: Tubes, catheters and devices: Left chest wall implantable pacer/defibrillator. Lungs: Mild interstitial prominence, chronic. No pulmonary consolidation. Pleural spaces: No pleural effusion or pneumothorax. Heart/Mediastinum: Mild cardiomegaly, stable. Vasculature: Atherosclerotic calcifications of the aorta are noted. Bones/joints: No acute osseous abnormalities are seen. XR/XR chest 1V portable [id number] IMPRESSION: No acute cardiopulmonary disease.
--- NOTE | 2024-02-13 22:19 | ECG_ITS ---
[facility] Test Date: 2024-02-13 Pat Name: Evonne Richard Department: Room: Gender: Female Toe Puller: : 1945 Requested By: Jacky Phelps Order Number: [id number] Tanesha MD: Piedad Pascal M.D. Measurements Intervals [place] Rate: 150 P: 0 [place]: 0 QRS: 115 QRSD: 145 T: -55 QT: 312 QTc: 493 Interpretive Statements Atrial fibrillation with rapid ventricular rate INTRAVENTRICULAR CONDUCTION DELAY [130+ ms QRS DURATION] LATERAL MYOCARDIAL INFARCTION , PROBABLY RECENT [40+ ms Q WAVE AND/OR ST/T ABNORMALITY IN I/aVL/V5/V6] ACUTE [place] Compared to ECG 06/25/2023 14:44:26 Intraventricular conduction delay now present Sinus rhythm no longer present Ventricular premature complex(es) no longer present T-wave abnormality no longer present Possible ischemia no longer present Myocardial infarct finding still present Electronically Signed On 02-14-2024 20:37:49 CDT by Piedad Pascal M.D. [email or web address]/[id number] serrato
[2024-02-13] MEDS: dilTIAZem 5 mg/mL SDV 5 mL 20 MG IVP (22:24)
--- NOTE | 2024-02-13 22:24 | PC.NURSE ---
pt has medtronic pacer and defibrillator
[2024-02-13 22:31] LABS: Basophils # 0.1 10^3/uL (0.0-0.1); Basophils % 0.8 %; Eosinophils # 0.2 10^3/uL (0.0-0.8); Eosinophils % 2.3 %; Hematocrit 35.5 % (36-47); Lymphocytes % 39.1 %; Mean Corpuscular HGB Conc 32.4 g/dL (30-55); Mean Corpuscular Hemoglobin 29.4 pg (27-33); Mean Corpuscular Volume 90.8 fl (85-98); Mean Platelet Volume 9.5 fL (7.4-10.4); Monocytes # 0.5 10^3/uL (0.2-0.9); Monocytes % 6.7 %; Neutrophils # 3.95 10^3/uL (1.8-7.7); Neutrophils % 50.8 %; Nucleated Red Blood Cells % 0 %; Platelet Count 254 10^3/cmm (157-399); Red Blood Count 3.91 10^6/uL (3.85-5.65); Red Cell Distribution Width 13.9 % (12.1-15.1); White Blood Count 7.77 10^3/uL (3.29-11.43)
[2024-02-13] MEDS: metoprolol tartrate 1 mg/1 mL SDV 5 mL 5 MG IVP ×2 (22:37→22:53)
[2024-02-13] MEDS: sodium chloride 0.9% 1,000 ML 999 ML IV (22:37)
--- NOTE | 2024-02-13 22:37 | ED_ITS ---
HPI - Arrhythmia/Palpitations 2 General: Chief Complaint: Arrhythmia/Palpitations Stated Complaint: odd heart rhythms high hr has defibulator Time Seen by Provider: 02/13/24 22:16 History of Present Illness: Patient presents to the ER by EMS with complaints of heart fluttering. Patient states her heart started fluttering and getting really fast at approximately 4 PM tonight. Patient is on Eliquis. Patient was seen by Dr. Dubose last week and says everything was good. Patient does have a history of V. tach and has had several ablations. Patient denies any chest pain shortness of breath nausea or diaphoresis at this time. Review of Systems 2 General: Reports: 10 or more systems reviewed and unremarkable except in HPI and below PFSH ED 2 PFSH: Medical History CVA (cerebral vascular accident) pt states had this since last visit here Vitamin D deficiency (09/09/19) Hypothyroidism (05/28/18) 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) LV (left ventricular) mural thrombus Hypertension Dyslipidemia Ischemic cardiomyopathy Myocardial infarction CAD (coronary artery disease) Rheumatoid arthritis with rheumatoid factor 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 or systems involvement High risk medication use Immunization counseling Encounter for screening for other viral diseases Surgical History S/P ablation of atrial fibrillation History of cardiac defibrillator placement Stented coronary artery Hx of cholecystectomy H/O: hysterectomy H/O bilateral cataract extraction Family History Other Diabetes Family history of premature coronary artery disease Rheumatoid arthritis Denies family history of Chronic kidney disease (CKD) Systemic lupus erythematosus (SLE) in adult Cancer Hypertension Stroke Social History Smoking and tobacco/nicotine status: former use of tobacco/nicotine Quit status (tobacco/nicotine): has quit using Year quit tobacco: 2020 Former quit date comment: 0.5 PPD X 30 YEARS Alcohol intake: current Substance/Drug Use: never Physical Exam 2 Const: COMMON NORMALS: no acute distress, average body habitus, patient oriented x3, no limitations, healthy appearing, alert and well nourished HENMT: COMMON NORMALS: normocephalic, atraumatic, hearing grossly normal bilaterally, external ears normal, Normal external nose present and moist oral mucous membranes HEAD & SCALP: normocephalic and atraumatic NOSE: Normal external nose present EXTERNAL EAR: Yes external ears normal Neck/C-Spine: COMMON NORMALS: full ROM, no lymphadenopathy, supple, no meningeal signs and no JVD Chest: COMMONS NORMALS: normal inspection of the chest and normal palpation of entire chest wall Resp: COMMON NORMALS: normal respiratory effort, No retractions, No use of accessory muscles and clear to auscultation bilaterally AUSCULTATION: clear to auscultation bilaterally Cardio: COMMON NORMALS: no JVD, regular rhythm, S1 normal heart sound present, S2 normal heart sound present, No gallops present (Cardio), No clicks present (Cardio) and No murmurs present (Cardio); negative for regular rate (Tachycardic) RATE: abnormal rate (Tachycardic) RHYTHM: regular rhythm HEART SOUNDS: S1 normal heart sound present and S2 normal heart sound present GI: COMMON NORMALS: Normal to inspection, nondistended, normoactive bowel sounds present, Soft to palpation, non-tender, No hepatosplenomegaly present and no masses PALPATION: Yes Soft to palpation and Yes No hepatosplenomegaly present Neuro: COMMON NORMALS: patient oriented x3 SENSORIUM/ORIENTATION: Yes alert MENINGEAL SIGNS: Yes no meningeal signs Course 2 Vital Signs: Vital signs: Vital Signs Temperature 98.6 F 02/13/24 22:10 Pulse Rate 127 H 02/13/24 23:47 Respiratory Rate 18 02/13/24 23:47 Blood Pressure 107/76 02/13/24 23:47 Pulse Oximetry 94 02/13/24 23:47 Oxygen Delivery Me thod Room Air 02/13/24 23:32 MDM - Arrhythmia/Palpitations Medical Decision Making Patient presented with tachycardia at a rate about 150 beats a minute, appeared to be SVT and nature. Patient was given 20 mg Cardizem IV push but nothing, then patient was given 2 doses of 5 mg of metoprolol each which lowered her heart rate about 10 bpm but also lowered her blood pressure by about 40 points. Patient was then started on amiodarone 150 mg bolus and a drip. This lowered the patient's average heart rate down to about 130, lab work was obtained which essentially unremarkable except a mildly elevated troponin at 44, patient is not having chest pain nor has she ever had chest pain. Dr. Nicole was consulted who agrees to place patient ICU for further evaluation and treatment. Medical Records I reviewed the patient's medical records. Lab Data I reviewed the patient's lab results. 02/13/24 22:21 02/13/24 22:21 Radiology Impressions Chest X-Ray 02/13/24 22:16 IMPRESSION: No acute cardiopulmonary disease. Laboratory Results WBC 7.77 10^3/uL (3.29-11.43) 02/13/24 22:21 RBC 3.91 10^6/uL (3.85-5.65) 02/13/24 22:21 Hgb 11.50 g/dL (11.27-16.99) 02/13/24 22:21 Hct 35.5 % (36-47) L 02/13/24 22:21 MCV 90.8 fl (85-98) 02/13/24 22:21 MCH 29.4 pg (27-33) 02/13/24 22:21 MCHC 32.4 g/dL (30-55) 02/13/24 22:21 RDW 13.9 % (12.1-15.1) 02/13/24 22:21 Plt Count 254 10^3/cmm (157-399) 02/13/24 22:21 MPV 9.5 fL (7.4-10.4) 02/13/24 22:21 Neut % (Auto) 50.8 % 02/13/24 22:21 Lymph % (Auto) 39.1 % 02/13/24 22:21 [place] % (Auto) 6.7 % 02/13/24 22:21 Eos % (Auto) 2.3 % 02/13/24 22:21 Baso % (Auto) 0.8 % 02/13/24 22:21 Neut # (Auto) 3.95 10^3/uL (1.8-7.7) 02/13/24 22:21 Lymph # (Auto) 3.0 10^3/uL (0.8-4.8) 02/13/24 22:21 [place] # (Auto) 0.5 10^3/uL (0.2-0.9) 02/13/24 22:21 Eos # (Auto) 0.2 10^3/uL (0.0-0.8) 02/13/24 22:21 Baso # (Auto) 0.1 10^3/uL (0.0-0.1) 02/13/24 22:21 Nucleated RBC % (auto) 0 % 02/13/24 22:21 Nucleated RBCs # 0.0 /100WBC 02/13/24 22:21 Sodium 144 mmol/L (136-145) 02/13/24 22:21 Potassium 4.2 mmol/L (3.5-5.1) 02/13/24 22:21 Chloride 111 mmol/L (98-107) H 02/13/24 22:21 Carbon Dioxide 20 mmol/L (22-29) L 02/13/24 22:21 Anion Gap 17.2 (5-19) 02/13/24 22:21 BUN 23 mg/dL (8-23) 02/13/24 22:21 Creatinine 1.2 mg/dL (0.5-0.9) H 02/13/24 22:21 GFR Calculation Not Reportable 02/13/24 22:21 Glucose 119 mg/dL (65-115) H 02/13/24 22:21 Calculated Osmolality 303 mOsm/kg (285-295) H 02/13/24 22:21 Calcium 9.3 mg/dL (8.5-10.5) 02/13/24 22:21 Magnesium 1.9 mg/dL (1.7-2.3) 02/13/24 22:21 Total Bilirubin 0.2 mg/dL (0.15-1.2) 02/13/24 22:21 AST 18 U/L (0-32) 02/13/24 22:21 ALT 17 U/L (0-33) 02/13/24 22:21 Alkaline Phosphatase 56 U/L (35-105) 02/13/24 22:21 Troponin T Baseline 44 ng/L (0-10) H 02/13/24 22:21 Total Protein 7.2 g/dL (6.6-8.7) 02/13/24 22:21 Albumin 4.4 g/dL (3.5-5.2) 02/13/24 22:21 Globulin 2.8 g/dL (1.3-4.6) 02/13/24 22:21 Urine Color Yellow (Yellow) 02/13/24 23:04 Urine Appearance Clear (CLEAR) 02/13/24 23:04 Urine pH 5 (5-7) 02/13/24 23:04 Ur Specific [place] 1.005 (1.005-1.030) 02/13/24 23:04 Urine Protein Neg (Negative) 02/13/24 23:04 Urine Glucose (UA) 2+ (Normal) H 02/13/24 23:04 Urine Ketones Negative (Negative) 02/13/24 23:04 Urine Blood Neg (Negative) 02/13/24 23:04 Urine Nitrate Negative 02/13/24 23:04 Urine Bilirubin Neg (Negative) 02/13/24 23:04 Urine Urobilinogen Norm mg/dL (Negative) 02/13/24 23:04 Ur Leukocyte Esterase Negative (Negative) 02/13/24 23:04 All radiology interpretation(s) finalized by discharge Discharge Plan Discharge Patient Disposition: Admitted As Inpatient Clinical Impression: Supraventricular tachycardia Condition: Stable Coding Level of Care Code ED Automotive Finance Manager for Richie Asrhaf
[2024-02-13 22:43] VITALS: BP 99/72; PULSE 150; RESP 19; O2SAT 93
[2024-02-13 22:54] LABS: Troponin(5th) Baseline 44 ng/L (0-10)
[2024-02-13 22:55] VITALS: BP 118/74; PULSE 155; RESP 20; O2SAT 94
[2024-02-13 22:55] LABS: Alanine Aminotransferase 17 U/L (0-33); Albumin Level 4.4 g/dL (3.5-5.2); Alkaline Phosphatase 56 U/L (35-105); Anion Gap 17.2 (5-19); Aspartate Amino Transferase 18 U/L (0-32); Blood Urea Nitrogen 23 mg/dL (8-23); Calcium 9.3 mg/dL (8.5-10.5); Carbon Dioxide 20 mmol/L (22-29); Chloride 111 mmol/L (98-107); Creatinine Clr Calc Pharmacy 35.2001; Globulin 2.8 g/dL (1.3-4.6); Glucose 119 mg/dL (65-115); Magnesium 1.9 mg/dL (1.7-2.3); Osmolality Calculated 303 mOsm/kg (285-295); Potassium 4.2 mmol/L (3.5-5.1); Sodium 144 mmol/L (136-145); Total Bilirubin 0.2 mg/dL (0.15-1.2); Total Protein 7.2 g/dL (6.6-8.7)
[2024-02-13 23:06] VITALS: BP 104/88; PULSE 147; RESP 26; O2SAT 95
[2024-02-13 23:19] LABS: Add Urine Microscopic? NO; Charge for UA Resulting for Rev
[2024-02-13 23:20] LABS: Bilirubin Urine Neg (Negative); Blood Urine Neg (Negative); Glucose Urine UA 2+ (Normal); Ketones Urine Negative (Negative); Leukocyte Esterase Urine Negative (Negative); Nitrate Urine Negative; Protein Urine Neg (Negative); Specific Gravity, Urine 1.005 (1.005-1.030); Urine Appearance Clear (CLEAR); Urine Color Yellow (Yellow); Urobilinogen Urine Norm (Negative); pH Urine 5 (5-7)
[2024-02-13] MEDS: amiodarone 150 MG/100 ML PREMIX 400 MG IV (23:29)
[2024-02-13 23:32] VITALS: BP 95/70; PULSE 152; RESP 18; O2SAT 93
[2024-02-13 23:47] VITALS: BP 107/76; PULSE 127; RESP 18; O2SAT 94
[2024-02-14] VITALS (97 sets, daily range): BP systolic 90–132; BP diastolic 43–85; PULSE 59–147; RESP 11–29; TEMP 36.4–37.2; O2SAT 89–97; BMI 26.9
--- NOTE | 2024-02-14 00:35 | ECG_ITS ---
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 Measurements Intervals [place] Rate: 144 P: 122 [place]: 141 QRS: 124 QRSD: 149 T: -53 QT: 335 QTc: 520 Interpretive Statements POSSIBLE ATRIAL FLUTTER ARM LEADS REVERSED [INVERTED P AND QRS IN I] ABNORMAL RHYTHM ECG Compared to ECG 02/13/2024 22:05:01 Intraventricular conduction delay no longer present Myocardial infarct finding no longer present Electronically Signed On 02-14-2024 20:52:10 CDT by Piedad Pascal M.D. [email or web address] county general [email or web address] Materialsgood samaritan hospital.[employer]/store/OM/[id number]/[id number]
[2024-02-14 01:00] LABS: Troponin 5 2HR 52.95 ng/L (0-10); Troponin 5 2HR Delta 8.95 ABS# (0-10)
--- NOTE | 2024-02-14 01:13 | PC.NURSE ---
Report was called to CAPRICE Wade in ICU. All questions and concerns were addressed at time of report.
--- NOTE | 2024-02-14 02:05 | P.HP_ITS ---
Providers/Chief Complaint 2 Admitting Physician: Savanna Nicole MD Primary Care Provider: Shannan Rios MD Chief Complaint: odd heart rhythms high hr has defibulator History of Present Illness Evonne Richard is a 78 year old female with a history of atherosclerotic heart diseas, previous myocardial infarction, ischemic cardiomyopathy, multiple CVA, possible LV apical thrombus, on long-term oral anticoagulation was presented to the hospital with palpitations that started at around 6 PM last evening. Patient states she was sitting at rest when she started to feel palpitations. She checked her heart rate at home and this was ranging between 1 50-1 60s so she came to the hospital. She denies any chest pain. Denies any dyspnea. Denies any dizziness nausea vomiting or syncope. She was found to have a heart rate of 150. Initial call was that for a STEMI. ER physician discussed the case with intervention cardiology on-call, per their discussion there were no changes for STEMI, EKG appeared to show A-fib RVR. She received Cardizem 20 mg IV push and also metoprolol 5 mg IV push x 2. Her heart rate temporarily improved to around 120s however thereafter hypotension resulted with blood pressure systolic 90. Since that time heart rate has continued to be around 140 bpm with systolic blood pressure ranging between 90-100. She is mentating well. She was started on amiodarone infusion thereafter. Of note her past history is notable for admission here in June 2023 when she was admitted to the hospital with tachycardia intraventricular conduction delay and heart rate of 170s. Heart rate for heart failure to respond to diltiazem esmolol adenosine and eventually patient needed to be cardioverted to be in sinus rhythm. On limited echocardiogram on admission EF was approximately 45%. Hospital course was complicated by development of wide-complex tachycardia for which she received another cardioversion. Eventually needed to be placed on lidocaine with amiodarone. She underwent cardiac cath at that time where she had no signs of obstructive CAD. She was then transferred out to tertiary center in [place] and eventually received a Aicd. She has not felt any shocks with her AICD recently. Review of Systems 2 General: Reports: 10 or more systems reviewed and unremarkable except in HPI and below Const: Denies: fever(s), chills or body aches Eyes: Denies: change in vision, blurry vision or photophobia ENMT: Reports: hoarseness; Denies: throat pain, enlarged tonsils, odynophagia or nasal congestion Card: Denies: chest pain, palpitations, irregular heart rhythm, edema, swelling of feet/ankles, lightheadedness, pre-syncope, dyspnea on exertion or orthopnea Resp: Denies: dyspnea, productive cough, non-productive cough, wheezing, stridor, pain on inspiration, change in phlegm color, hemoptysis or chest congestion GI: Denies: abdominal pain, nausea, vomiting, hematemesis, coffee ground emesis, dysphagia, heartburn, diarrhea, constipation, GI cramping, change in stool character, hematochezia or melena : Denies: flank pain, difficulty voiding, dysuria, urinary frequency, urinary urgency, urinary hesitancy or hematuria Musc: Denies: neck pain, back pain, extremity pain, joint swelling, joint warmth or deformity Neuro: Denies: headache(s), numbness in extremities, weakness in extremities, sensory changes, difficulty walking, frequent falls, dizziness, vertigo, behavioral changes, Slurred speech present or seizure-like activity Psych: Denies: anxiety, depression, suicidal ideation or homicidal ideation Endo: Denies: polyuria, polydipsia, tired all the time, cold intolerance or hot flashes Sul[place]an/Lymph: Denies: easy bruising or easy bleeding Medications/Allergies Home Medications Medication Instructions Recorded Confirmed Last Taken Type apixaban 5 mg tablet (Eliquis) 5 mg PO BID #180 tabs 04/26/23 01/24/24 06/24/23 Rx nitroglycerin 0.4 mg sublingual 0.4 mg sublingual Q5M PRN Chest 06/25/23 01/24/24 Unknown History tablet (Nitrostat) Pain carvedilol 6.25 mg tablet 6.25 mg PO BID 01/24/24 01/24/24 Unknown History empagliflozin 10 mg tablet 10 mg PO DAILY 01/24/24 01/24/24 Unknown History (Jardiance) rosuvastatin 20 mg tablet 20 mg PO DAILY 01/24/24 01/24/24 Unknown History spironolactone 25 mg tablet 25 mg PO DAILY 01/24/24 01/24/24 Unknown History valsartan 40 mg tablet 40 mg PO BID 01/24/24 01/24/24 Unknown History Allergies Allergy/AdvReac Type Severity Reaction Status Date / Time acetaminophen [From Percocet] Allergy ADR-Vomitin Verified 02/14/24 00:59 g oxycodone [From Percocet] Allergy ADR-Vomitin Verified 02/14/24 00:59 g TPA Allergy Unknown Uncoded 01/24/24 09:58 PFSH Acute 2 PFSH: Medical History CVA (cerebral vascular accident) pt states had this since last visit here Vitamin D deficiency (09/09/19) Hypothyroidism (05/28/18) 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) LV (left ventricular) mural thrombus Hypertension Dyslipidemia Ischemic cardiomyopathy Myocardial infarction CAD (coronary artery disease) Rheumatoid arthritis with rheumatoid factor 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 or systems involvement High risk medication use Immunization counseling Encounter for screening for other viral diseases Surgical History S/P ablation of atrial fibrillation History of cardiac defibrillator placement Stented coronary artery Hx of cholecystectomy H/O: hysterectomy H/O bilateral cataract extraction Family History Other Diabetes Family history of premature coronary artery disease Rheumatoid arthritis Denies family history of Chronic kidney disease (CKD) Systemic lupus erythematosus (SLE) in adult Cancer Hypertension Stroke Social History Smoking and tobacco/nicotine status: former use of tobacco/nicotine Quit status (tobacco/nicotine): has quit using Year quit tobacco: 2020 Former quit date comment: 0.5 PPD X 30 YEARS Alcohol intake: current Substance/Drug Use: never Vitals/I&O/Wt Last Vital Signs Temp 98.0 F 02/14/24 01:41 Pulse 146 H 02/14/24 01:41 Resp 23 H 02/14/24 01:40 BP 100/75 02/14/24 01:40 Pulse Ox 94 02/14/24 01:40 O2 Del Method Room Air 02/14/24 01:15 02/13/24 02/13/24 02/14/24 14:59 22:59 06:59 Intake Total 1100 / 1100 Balance 1100 / 1100 Weight last 48 hrs Weight 68.991 kg Weight 68.039 kg Physical Exam 2 Narrative: General: No acute distress, AO x3 HEENT: PERRLA, pupils bilaterally equal and reactive, pallors not present Chest: Normal vesicular breath sounds, no added sounds, equal good air entry bilaterally CVS: S1-S2 regular, no murmurs, no tachycardia, no gallops, no rubs Abdomen: Soft, nontender, no organomegaly, bowel sounds present Neuro: No focal deficits, no facial deformity, AO x3, power 5/5 in all limbs Extremities no clubbing edema cyanosis Data 02/13/24 22:21 02/13/24 22:21 Other Labs: XR/XR chest 1V portable [id number] IMPRESSION: No acute cardiopulmonary disease. A&P Assessment and plan (1) Atrial fibrillation with RVR: Patient presenting to the hospital with HPI as above. Currently continues to be in A-fib with RVR with a heart rate of 140/min. She has received boluses with Cardizem 20 mg, metoprolol 5 mg IV push x 2 however continued to be in A-fib. Along with that blood pressures have been soft ranging around 100 systolic. She received amiodarone 150 bolus at 2 AM. Thereafter started on amiodarone infusion. Monitor for response on amiodarone infusion. If heart rate fails to respond would add digoxin. Past history notable for needing cardioversion, it appears she also underwent ablative procedure for A-fib. Will consult cardiology if heart rate fails to respond to above measures. Baseline troponin at 44, trending up to 52 at 2 hours, however delta at 8. Patient currently denies any chest pain dyspnea. Echocardiogram from June 2023 with diffuse hypokinesia of the mid and apical septum with LVEF of 45%. Underwent coronary angiogram in June 2023 which showed moderate RCA stenosis without any intervenable lesions. Monitor closely in the ICU Low probability of PE given patient is chronically anticoagulated with Eliquis, will continue same. Hold Aldactone and valsartan currently no ssigns of CHF decompensation Ordered pacemaker check. (2) S/P ablation of atrial fibrillation: Plan Diabetes mellitus: Low-dose insulin sliding scale Attestations 2 Medical Necessity Statement*: Greater than 2 midnight admission is anticipated for above defined care Critical Care Time: The high probability of a clinically significant, sudden or life threatening deterioration of the patient's [cardiology, respiratory] system(s) required my full and direct attention, intervention and personal management. The critical care time is as shown. This time is in addition to time spent performing any reported procedures but includes the following: [x] Data and vital sign review and interpretation [x] Patient assessment, examination and intervention [x] Documentation [x] Medication orders and management Critical Care Time (min): 45 Coding Level of Care Code Critical Care >/= 30 minutes Diagnoses Atrial fibrillation with RVR I48.91 S/P ablation of atrial fibrillation Z98.890; Z86.79
[2024-02-14] MEDS: digoxin 250 mcg/ml INJ 2 mL IVP (02:13)
[2024-02-14 05:39] LABS: Troponin 5 6HR 58.34 ng/L (0-10)
[2024-02-14 05:56] LABS: Troponin 5 6HR Delta 14.34 ng/L (0-12)
--- NOTE | 2024-02-14 07:34 | ECG_ITS ---
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 Measurements Intervals [place] Rate: 60 P: 60 [place]: 225 QRS: 42 QRSD: 132 T: 114 QT: 374 QTc: 374 Interpretive Statements ELECTRONIC ATRIAL PACEMAKER INTRAVENTRICULAR CONDUCTION DELAY [130+ ms QRS DURATION] ANTEROSEPTAL MYOCARDIAL INFARCTION , OF INDETERMINATE AGE [40+ ms Q WAVE IN V1-V4] INTERPRETATION BASED ON A DEFAULT AGE OF 40 YEARS Compared to ECG 02/14/2024 00:35:37 Intraventricular conduction delay now present Myocardial infarct finding now present Electronically Signed On 02-14-2024 20:52:31 CDT by Piedad Pascal M.D. [email or web address] [email or web address] Candy Casesmercy health.[employer]/store/[id number]
[2024-02-14 08:05] LABS: Glucose Point of Care 94 mg/dL (70-110)
[2024-02-14] MEDS: apixaban 5 mg Tablet PO ×2 (08:13→17:33)
[2024-02-14] MEDS: atorvastatin 40 mg Tablet 80 MG PO (08:14)
[2024-02-14] MEDS: pantoprazole DR 40 mg Tablet PO (08:14)
--- NOTE | 2024-02-14 09:11 | PM.CONSULT ---
Providers/Reason For Consult Consulting Physician/Specialty*: SHYAM Pascal MD/cardiology Reason for Consult*: Patient with a history of atherosclerotic heart disease, cardiomyopathy, cardiac arrhythmia, presenting with atrial fibrillation with rapid ventricular rate. Currently on IV amiodarone. Her ventricular rate remains uncontrolled Requesting Physician: Dr Maisha Nicole/ Fernando Attending Physician: Jose King Primary Care Provider: Shannan Rios MD History of Present Illness History of Present Illness Evonne Richard is a 78 year old female is admitted to hospital, is admitted to hospital through the emergency room where she presented with complaints of palpitations. She was found to be in atrial fibrillation with rapid ventricular rate. Initially she was started on IV Cardizem. Because her blood pressure dropped, this was switched to IV amiodarone. She also was given couple of doses of digoxin. Patient is still remains in atrial fibrillation with a rapid rate. Cardiology consult is requested for further cardiac evaluation recommendations. This patient is known to have cardiomyopathy,wide-complex tachycardia, LV apical thrombus, congestive heart failure, recurrent CVA, rheumatoid arthritis, carotid artery disease, high blood pressure, dyslipidemia and multiple other medical problems. Since the heart failure seems to be compensated likely, patient may not require any specific intervention at this time. Advised to continue on the current medications. Patient apparently has been in her baseline state of health up until last evening around 6:30 PM when she started having the pounding in the chest/palpitation. She did not have any chest pain. Had some shortness of breath. No dizziness or syncopal episodes. Because of the persistence of the symptoms, she called her son and was brought to the hospital emergency room. This patient was admitted to hospital in June of last year when she presented with a wide-complex tachycardia. At that time she was cardioverted initially with 100 J of biphasic current. She again went back into wide-complex tachycardia which required multiple DC shock. She was treated with the IV amiodarone and lidocaine. Subsequently she was transferred to the [facility] in [place] were she underwent some ablation procedure and ICD implant. Details of this is not available at this time. Her hospital course was complicated with recurrent episodes of pulmonary edema. Since hospital discharge, she has generally been doing okay. 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 Her device seems to be functioning okay. She had a cardiac catheterization here at the [facility] in June. She was found to have mild diffuse coronary artery disease. She had a 50% lesion in the right coronary artery which was found to have normal FFR. She has been on long-term oral anticoagulation. She has no bleeding complications. Her last CVA was in 2020. At that time she was found to have moderate disease in the right ICA with a mild stenosis in the left ICA. She denies any fever, chills or cough. No other specific complaints. He has a history of smoking abuse which she quit 3 years ago. No alcohol abuse or any substance abuse. Review of Systems Narrative: GENERAL: The patient is alert and oriented times three. Not in any acute distress. HEENT: No significant pallor, icterus or lymphadenopathy.Oral cavity: There are no mucous membrane lesions. NECK: Trachea appears to be central. No masses noted. No JVD or thyromegaly appreciated. RESPIRATORY: Chest is symmetrical. No intercostals muscle retraction or any accessory muscle activation. There is no chest wall tenderness. Breath sounds are heard bilaterally. No rales or rhonchi heard. No evidence of any consolidation. BREASTS: Deferred. HEART: The heart sounds are normal. No S3 or S4. No significant murmurs. No pericardial rub ABDOMEN: No vessel pulsations or distention. No tenderness. No organomegaly appreciated. Bowel sounds are normally heard. : Deferred. RECTAL: Deferred. LYMPHATIC: No lymphadenopathy noted in the neck. EXTREMITIES: No edema or cyanosis. No clubbing. MUSCULOSKELETAL: No acute joint deformities or swelling SKIN: There are no significant rashes or ecchymosis NEUROPSYCHIATRIC: History of CVA. She has some amount of dysarthria Medications/Allergies Home Medications Medication Instructions Recorded Confirmed Last Taken Type apixaban 5 mg tablet (Eliquis) 5 mg PO BID #180 tabs 04/26/23 02/14/24 02/13/24 Rx nitroglycerin 0.4 mg sublingual 0.4 mg sublingual Q5M PRN Chest 06/25/23 02/14/24 Unknown History tablet (Nitrostat) Pain carvedilol 6.25 mg tablet 6.25 mg PO BID 01/24/24 02/14/24 02/13/24 History empagliflozin 10 mg tablet 10 mg PO DAILY 01/24/24 02/14/24 02/13/24 History (Jardiance) rosuvastatin 20 mg tablet 20 mg PO DAILY 01/24/24 02/14/24 02/13/24 History spironolactone 25 mg tablet 25 mg PO DAILY 01/24/24 02/14/24 02/13/24 History valsartan 40 mg tablet 40 mg PO BID 01/24/24 02/14/24 02/13/24 History folic acid 1 mg tablet 1 mg PO DAILY 02/14/24 02/14/24 02/13/24 History Allergies Allergy/AdvReac Type Severity Reaction Status Date / Time acetaminophen [From Percocet] Allergy ADR-Vomitin Verified 02/14/24 00:59 g oxycodone [From Percocet] Allergy ADR-Vomitin Verified 02/14/24 00:59 g TPA Allergy Unknown Uncoded 01/24/24 09:58 Current Medications Generic Name Dose Route Start Last Admin Trade Name Freq PRN Reason Stop Dose Admin Apixaban 5 mg 02/14/24 09:00 02/14/24 08:13 Apixaban 5 Mg Tablet PO 5 mg BID JACK Administration Atorvastatin Calcium 80 mg 02/14/24 09:00 02/14/24 08:14 Atorvastatin 40 Mg Tablet PO 80 mg DAILY JACK Administration Amiodarone HCl/Dextrose 360 mg in 200 mls @ 0 mls/hr 02/13/24 23:12 02/14/24 05:33 Nexterone IV 1 mg/min .Q0M JACK 33.33 mls/hr Administration Protocol Per Protocol Insulin Human Lispro 0 unit 02/14/24 08:00 02/14/24 08:02 Insulin Lispro 100 Unit/1 Ml SUBCUT Not Given WM&BEDTIME JACK Protocol Pantoprazole Sodium 40 mg 02/14/24 09:00 02/14/24 08:[address] 40 Mg Tablet PO 40 mg DAILY JACK Administration PFSH Acute PFSH: Medical History CVA (cerebral vascular accident) pt states had this since last visit here Vitamin D deficiency (09/09/19) Hypothyroidism (05/28/18) 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) LV (left ventricular) mural thrombus Hypertension Dyslipidemia Ischemic cardiomyopathy Myocardial infarction CAD (coronary artery disease) Rheumatoid arthritis with rheumatoid factor 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 or systems involvement High risk medication use Immunization counseling Encounter for screening for other viral diseases Surgical History S/P ablation of atrial fibrillation History of cardiac defibrillator placement Stented coronary artery Hx of cholecystectomy H/O: hysterectomy H/O bilateral cataract extraction Family History Other Diabetes Family history of premature coronary artery disease Rheumatoid arthritis Denies family history of Chronic kidney disease (CKD) Systemic lupus erythematosus (SLE) in adult Cancer Hypertension Stroke Social History Smoking and tobacco/nicotine status: former use of tobacco/nicotine Quit status (tobacco/nicotine): has quit using Year quit tobacco: 2020 Former quit date comment: 0.5 PPD X 30 YEARS Alcohol intake: current Substance/Drug Use: never Vitals/I&O/Wt Last Vital Signs Temp 97.6 F 02/14/24 05:48 Pulse 61 02/14/24 08:15 Resp 14 02/14/24 04:00 BP 105/74 02/14/24 04:00 Pulse Ox 93 02/14/24 08:15 O2 Del Method Room Air 02/14/24 08:15 02/13/24 02/14/24 02/14/24 22:59 06:59 14:59 Intake Total 1300 / 1300 100 / 100 Output Total 300 / 300 Balance 1000 / 1000 100 / 100 Weight last 48 hrs Weight 152 lb 1.6 oz Weight 152 lb 1.6 oz Weight 150 lb Physical Exam Narrative: GENERAL: The patient is alert and oriented times three. Not in any acute distress. HEENT: No significant pallor, icterus or lymphadenopathy.Oral cavity: There are no mucous membrane lesions. NECK: Trachea appears to be central. No masses noted. No JVD or thyromegaly appreciated. RESPIRATORY: Chest is symmetrical. No intercostals muscle retraction or any accessory muscle activation. There is no chest wall tenderness. Breath sounds are heard bilaterally. No rales or rhonchi heard. No evidence of any consolidation. BREASTS: Deferred. HEART: The heart sounds are normal. No S3 or S4. Short systolic murmur in the lower sternal border. No diastolic murmurs.. No pericardial rub ABDOMEN: No vessel pulsations or distention. No tenderness. No organomegaly appreciated. Bowel sounds are normally heard. : Deferred. RECTAL: Deferred. LYMPHATIC: No lymphadenopathy noted in the neck. EXTREMITIES: Peripheral pulses are palpable but weak bilaterally. MUSCULOSKELETAL: No acute joint deformities or swelling SKIN: There are no significant rashes or ecchymosis NEUROPSYCHIATRIC: The patient is alert and oriented x3. Appears to be in a good mood. No tremors or rigidity noted. Data 02/13/24 22:21 02/13/24 22:21 Other Labs: Laboratory Last Values WBC 7.77 10^3/uL (3.29-11.43) 02/13/24 22: RBC 3.91 10^6/uL (3.85-5.65) 02/13/24 22:21 Hgb 11.50 g/dL (11.27-16.99) 02/13/24 22:21 Hct 35.5 % (36-47) L 02/13/24 22:21 MCV 90.8 fl (85-98) 02/13/24 22:21 MCH 29.4 pg (27-33) 02/13/24 22:21 MCHC 32.4 g/dL (30-55) 02/13/24 22:21 RDW 13.9 % (12.1-15.1) 02/13/24 22:21 Plt Count 254 10^3/cmm (157-399) 02/13/24 22:21 MPV 9.5 fL (7.4-10.4) 02/13/24 22:21 Neut % (Auto) 50.8 % 02/13/24 22:21 Lymph % (Auto) 39.1 % 02/13/24 22:21 [place] % (Auto) 6.7 % 02/13/24 22:21 Eos % (Auto) 2.3 % 02/13/24 22:21 Baso % (Auto) 0.8 % 02/13/24 22:21 Neut # (Auto) 3.95 10^3/uL (1.8-7.7) 02/13/24 22:21 Lymph # (Auto) 3.0 10^3/uL (0.8-4.8) 02/13/24 22:21 [place] # (Auto) 0.5 10^3/uL (0.2-0.9) 02/13/24 22:21 Eos # (Auto) 0.2 10^3/uL (0.0-0.8) 02/13/24 22:21 Baso # (Auto) 0.1 10^3/uL (0.0-0.1) 02/13/24 22:21 Nucleated RBC % (auto) 0 % 02/13/24 22:21 Nucleated RBCs # 0.0 /100WBC 02/13/24 22:21 Sodium 144 mmol/L (136-145) 02/13/24 22:21 Potassium 4.2 mmol/L (3.5-5.1) 02/13/24 22:21 Chloride 111 mmol/L (98-107) H 02/13/24 22:21 Carbon Dioxide 20 mmol/L (22-29) L 02/13/24 22:21 Anion Gap 17.2 (5-19) 02/13/24 22:21 BUN 23 mg/dL (8-23) 02/13/24 22:21 Creatinine 1.2 mg/dL (0.5-0.9) H 02/13/24 22:21 GFR Calculation Not Reportable 02/13/24 22:21 Glucose 119 mg/dL (65-115) H 02/13/24 22:21 POC Glucose 94 mg/dL (70-110) 02/14/24 08:02 Calculated Osmolality 303 mOsm/kg (285-295) H 02/13/24 22:21 Calcium 9.3 mg/dL (8.5-10.5) 02/13/24 22:21 Magnesium 1.9 mg/dL (1.7-2.3) 02/13/24 22:21 Total Bilirubin 0.2 mg/dL (0.15-1.2) 02/13/24 22:21 AST 18 U/L (0-32) 02/13/24 22:21 ALT 17 U/L (0-33) 02/13/24 22:21 Alkaline Phosphatase 56 U/L (35-105) 02/13/24 22:21 Troponin T Baseline 44 ng/L (0-10) H 02/13/24 22:21 Troponin T 120 Minute 52.95 ng/L (0-10) H 02/14/24 00:35 Delta Troponin T 8.95 ABS# (0-10) 02/14/24 00:35 Troponin T Hi Sens 6Hr 58.34 ng/L (0-10) H 02/14/24 04:17 Troponin T Hi Sens 6Hr Delta 14.34 ng/L (0-12) H* 02/14/24 04:17 Total Protein 7.2 g/dL (6.6-8.7) 02/13/24 22:21 Albumin 4.4 g/dL (3.5-5.2) 02/13/24 22:21 Globulin 2.8 g/dL (1.3-4.6) 02/13/24 22:21 Urine Color Yellow (Yellow) 02/13/24 23:04 Urine Appearance Clear (CLEAR) 02/13/24 23:04 Urine pH 5 (5-7) 02/13/24 23:04 Ur Specific [place] 1.005 (1.005-1.030) 02/13/24 23:04 Urine Protein Neg (Negative) 02/13/24 23:04 Urine Glucose (UA) 2+ (Normal) H 02/13/24 23:04 Urine Ketones Negative (Negative) 02/13/24 23:04 Urine Blood Neg (Negative) 02/13/24 23:04 Urine Nitrate Negative 02/13/24 23:04 Urine Bilirubin Neg (Negative) 02/13/24 23:04 Urine Urobilinogen Norm mg/dL (Negative) 02/13/24 23:04 Ur Leukocyte Esterase Negative (Negative) 02/13/24 23:04 EKG 1: My Interpretation: Atrial fibrillation with rapid ventricular rate of 150 bpm. Nonspecific IVCD. EKG 2: My Interpretation: A paced, V sensed rhythm. Heart rate of 60 bpm. Poor R wave progression. Features of old anteroseptal CT. Other data: Cardiac catheterization on 06/26/2023 * INDICATION: Wide complex tachycardia / possible ventricular tachycardia. * Left Main has no significant disease. * Left Anterior Descending has no significant disease. * Circumflex is medium sized vessel after takeoff of OM1. Distally circumflex artery has diffuse disease. OM1 is patent.. * Mid Right Coronary Artery: moderate 50% stenosis, CRISSY: 3 flow. * Coronary angiography shows right dominance. Echocardiogram on 06/25/2023 Mild diffuse hypokinesia of the mid and apical septum, anteroseptum and LV apex. Dyskinetic apical inferior wall segment. LV ejection fraction around 45%, visual. Mildly increased left atrial size. There is no pericardial effusion. Technically somewhat limited study. Compared to the previous study from 05/08/2023, there is some improvement in the LV ejection fraction A&P Assessment and plan (1) Atrial fibrillation with RVR: The patient is on IV amiodarone. Currently she is in a paced V sensed rhythm. We may continue on the amiodarone till the IV infusion is completed, total of 1 g. Then she may be started on amiodarone 400 mg p.o. twice daily. (2) Atherosclerosis of coronary artery of [place] heart without angina pectoris: The coronary artery disease seems to be stable. The slightly elevated troponin T, most likely from type II CT. She did not have any revascularizable lesions by angiogram in June of last year. Qualifiers: Coronary Disease-Associated Artery/Lesion type: [place] artery Qualified Code(s): I25.10 - Atherosclerotic heart disease of [place] coronary artery without angina pectoris (3) Right-sided extracranial carotid artery stenosis: Patient has moderate disease in the right ICA. The carotid Doppler examination need to be repeated to follow-up on this. (4) LV (left ventricular) mural thrombus: Patient is on long-term oral anticoagulation. This may be continued. (5) Ischemic cardiomyopathy: There is a mention of LV ejection fraction of 23%,? In June. However the echocardiogram here in this hospital showed ejection fraction of around 45%. We may do a repeat echocardiogram to reevaluate the LV function. Plan Her other problems are #1. History of CVA #2 abnormal kidney function #3 history of rheumatoid arthritis #4 history of hypertension #6 dyslipidemia #7 history of congestive heart failure, currently compensated Patient may need to be closely monitored on telemetry. Once the IV infusion of amiodarone is finished, we may start her on p.o. amiodarone. The pacemaker was interrogated. Patient had a few episodes of paced terminated V. tach. No ventricular fibrillation. Consider GDMT for the cardiomyopathy/congestive heart failure Based on the clinical progress on the results of the above, further recommendations will be made. Thank you for the opportunity to evaluate this patient and make these recommendations Coding Level of Care Code 60678 Diagnoses Atrial fibrillation with RVR I48.91 Atherosclerosis of [place] coronary artery of [place] heart without angina pectoris I25.10 Coronary Disease-Associated Artery/Lesion type: [place] artery Right-sided extracranial carotid artery stenosis I65.21 LV (left ventricular) mural thrombus I51.3 Ischemic cardiomyopathy I25.5
--- NOTE | 2024-02-14 09:38 | USCV_ITS ---
Evonne Richard Age: 78 Gender: F : 1945 Exam Date: 02/14/2024 10:27 Ordering Phys: Piedad Pascal MD ([email or web address]) Technologist: CT Exam Location[place] [facility] [place]ication: ef BP: 106 / 51 HR: Rhythm: Sinus Technical Quality: Adequate MEASUREMENTS (Male / Female) Normal Values 2D ECHO LVOT Diameter 2.0 cm LV Ejection Fraction MOD 2C 33.1 % LV Ejection Fraction 2C AL 33.9 % LA Diameter 4.4 cm RA Systolic Volume 4C AL 108.7 ml RA Systolic Volume 4C MOD 96.7 ml LA Sys Volume AL 108.7 cm cubed LA Sys Volume Index AL 61.0 cm cubed/m squared Aorta at Sinotubular Diameter 2.6 cm IVC Diameter 2.0 cm M-MODE LA Ao Ratio MM 1.9 AV Cusp Separation MM 1.7 cm FINDINGS Left Ventricle Severe diffuse hypokinesia of the LV apex. Moderate hypokinesia of the other segments. LV ejection fraction of 34%. Some echodensities in the LV apex, may suggest calcified structures endocardial structures. No obvious masses noted Right Ventricle Normal right ventricular size with a slightly diminished ejection fraction. Pacemaker/defibrillator wire in the right ventricle Right Atrium Moderately increased right atrial size. Pacemaker/defibrillator wire in the right atrium Left Atrium Moderately increased left atrial size. Mitral Valve Mild mitral annular calcification. Aortic Valve No gross abnormalities noted Tricuspid Valve No gross abnormalities noted Pulmonic Valve Pulmonic valve not well visualized. Pericardium Small echo-free space anteriorly and posteriorly Aorta Normal aortic annulus size. IVC Normal inferior vena cava. CONCLUSIONS Severe diffuse hypokinesia of the LV apex. Moderate hypokinesia of the other segments. LV ejection fraction of 34%. Some echodensities in the LV apex, may suggest calcified structures endocardial structures. No obvious masses noted. Moderate biatrial enlargement Pacemaker/defibrillator wires in the right atrium/right ventricle Mild mitral annular calcification. There is no pericardial effusion. Compared to the study from 06/25/2023, there is a drop in the LV ejection fraction from 45% to 34% Dr Piedad Pascal MD [facility] (Electronically Signed) Final Date: 14 February 2024 15:16 S
--- NOTE | 2024-02-14 11:21 | PC.SOCIAL ---
IMM Update pg 2 of IMM updated and reviewed w/ patient. Copy provided and copy dated, initialed and placed in chart.
--- NOTE | 2024-02-14 16:56 | PM.PN ---
Subjective Subjective: She states she is feeling better. Denies chest pain or pressure. No trouble breathing. Has discussed her condition with cardiology with plans to continue IV amiodarone currently subsequently switching to oral amiodarone. He can transfer out of intensive care unit. Vitals/I&O/Wt Last Vital Signs Temp 98.9 F 02/14/24 09:15 Pulse 60 02/14/24 16:30 Resp 17 02/14/24 16:30 BP 118/50 02/14/24 16:30 Pulse Ox 95 02/14/24 16:30 O2 Del Method Room Air 02/14/24 08:15 02/14/24 02/14/24 02/14/24 06:59 14:59 22:59 Intake Total 1300 / 1300 500.000 / 500.000 Output Total 300 / 300 Balance 1000 / 1000 500.000 / 500.000 Weight last 48 hrs Weight 68.991 kg Weight 68.991 kg Weight 68.039 kg Physical Exam Const: COMMON NORMALS: patient oriented x3 and alert GENERAL APPEARANCE: cooperative ORIENTATION/CONSCIOUSNESS: Yes awake HENMT: COMMON NORMALS: oropharynx normal Neck/C-Spine: COMMON NORMALS: no JVD Resp: COMMON NORMALS: normal respiratory effort and clear to auscultation bilaterally AUSCULTATION: clear to auscultation bilaterally Cardio: COMMON NORMALS: no JVD, regular rhythm, S1 normal heart sound present, S2 normal heart sound present and No murmurs present (Cardio) RHYTHM: regular rhythm HEART SOUNDS: S1 normal heart sound present and S2 normal heart sound present GI: COMMON NORMALS: Normal to inspection, nondistended, normoactive bowel sounds present, Soft to palpation and non-tender PALPATION: Yes Soft to palpation Extremity: COMMON NORMALS: no joint enlargement and no pedal edema Neuro: COMMON NORMALS: patient oriented x3 and moves all extremities SENSORIUM/ORIENTATION: Yes alert Skin: COMMON NORMALS: no rashes or lesions noted GENERAL SKIN EXAM: no rashes or lesions noted Data 02/13/24 22:21 02/13/24 22:21 A&P Assessment and plan (1) Atrial fibrillation with RVR: Improved. Blood pressures are doing better. 118/50. Heart rate 60. Reviewed vitals, CBC, CMP, magnesium, troponin, UA, discussed with forming machine upkeep mechanic helper. Discussed with case management. Continue IV amiodarone. She will be switched to oral amiodarone. Monitor for risk of bradycardia. Monitor on telemetry. Can transfer out of ICU. Echocardiogram with noted decrease in ejection fraction down to 35% from 45%. Unclear if may be secondary to tachycardia. Does have moderate troponin elevation 44 at 6 hours up to 2.3 with positive delta. No chest pain or pressure. May be secondary to tachycardia. Reviewed cardiology note, consider secondary to type II [place]. Echocardiogram from June 2023 with diffuse hypokinesia of the mid and apical septum with LVEF of 45%. Underwent coronary angiogram in June 2023 which showed moderate RCA stenosis without any intervenable lesions. Low probability of PE given patient is chronically anticoagulated with Eliquis, will continue same. Hold Aldactone and valsartan currently no ssigns of CHF decompensation (2) S/P ablation of atrial fibrillation: Plan Diabetes mellitus: Low-dose insulin sliding scale Attestations Medical Necessity Statement*: Continue admission for optimization of control of atrial fibrillation with RVR, with new cardiomyopathy with new decrease in ejection fraction down to 35% from previously 45% in a lady with underlying coronary disease, high risk of decompensation. and High MDM includes amount and/or complexity of data reviewed/ordered [ resulted lab(s)/test(s), ordered lab(s)/test(s) and other healthcare professional discussion] and described risk of complication, morbidity or mortality of management as documented Diagnoses Atrial fibrillation with RVR I48.91 S/P ablation of atrial fibrillation Z98.890; Z86.79
[2024-02-14 19:20] LABS: Glucose Point of Care 123 mg/dL (70-110)
[2024-02-14 20:27] LABS: Glucose Point of Care 86 mg/dL (70-110)
[2024-02-15] VITALS (30 sets, daily range): BP systolic 108–155; BP diastolic 50–78; PULSE 60–70; RESP 12–20; TEMP 36.3–36.9; O2SAT 93–97
[2024-02-15 03:58] LABS: Basophils % 0.8 %; Eosinophils # 0.2 10^3/uL (0.0-0.8); Eosinophils % 3.2 %; Hematocrit 32.9 % (36-47); Lymphocytes # 2.3 10^3/uL (0.8-4.8); Lymphocytes % 44.3 %; Mean Corpuscular HGB Conc 31.3 g/dL (30-55); Mean Corpuscular Volume 92.7 fl (85-98); Mean Platelet Volume 10.1 fL (7.4-10.4); Monocytes # 0.4 10^3/uL (0.2-0.9); Neutrophils # 2.34 10^3/uL (1.8-7.7); Neutrophils % 44.5 %; Nucleated Red Blood Cells % 0 %; Platelet Count 218 10^3/cmm (157-399); Red Blood Count 3.55 10^6/uL (3.85-5.65); White Blood Count 5.26 10^3/uL (3.29-11.43)
[2024-02-15 04:33] LABS: Alanine Aminotransferase 14 U/L (0-33); Albumin Level 3.7 g/dL (3.5-5.2); Alkaline Phosphatase 48 U/L (35-105); Anion Gap 15.1 (5-19); Aspartate Amino Transferase 18 U/L (0-32); Blood Urea Nitrogen 17 mg/dL (8-23); Calcium 8.7 mg/dL (8.5-10.5); Carbon Dioxide 21 mmol/L (22-29); Chloride 111 mmol/L (98-107); Creatinine Clr Calc Pharmacy 38.6495; Globulin 2.8 g/dL (1.3-4.6); Glucose 83 mg/dL (65-115); Osmolality Calculated 297 mOsm/kg (285-295); Potassium 4.1 mmol/L (3.5-5.1); Sodium 143 mmol/L (136-145); Total Bilirubin 0.2 mg/dL (0.15-1.2); Total Protein 6.5 g/dL (6.6-8.7)
[2024-02-15 07:43] LABS: Glucose Point of Care 88 mg/dL (70-110)
[2024-02-15] MEDS: atorvastatin 40 mg Tablet 80 MG PO (08:59)
[2024-02-15] MEDS: amiodarone 200 mg Tablet 400 MG PO ×2 (08:59→17:14)
[2024-02-15] MEDS: apixaban 5 mg Tablet PO ×2 (08:59→17:14)
[2024-02-15] MEDS: pantoprazole DR 40 mg Tablet PO ×2 (09:00→21:50)
--- NOTE | 2024-02-15 09:30 | PM.PN ---
Subjective Subjective: Patient is feeling okay. She continues to remain in sinus rhythm/a paced V sensed rhythm. No new arrhythmias. The IV amiodarone infusion has completed. She is started on the p.o. amiodarone. Denies any fever, chills or cough. No other specific complaints. Medications: Medication Review Details: Current Medications Acetaminophen (Acetaminophen 325 Mg Tablet) 650 mg PO Q6H PRN PRN Reason: Mild/Mod Pain Or Temp >/= 101 Amiodarone HCl (Amiodarone 200 Mg Tablet) [address] [facility] Last Admin: 02/15/24 08:59 Dose: 400 mg Apixaban (Apixaban 5 Mg Tablet) 5 mg PO BID JACK Last Admin: 02/15/24 08:59 Dose: 5 mg Atorvastatin Calcium (Atorvastatin 40 Mg Tablet) [address] [facility] Last Admin: 02/15/24 08:59 Dose: 80 mg Digoxin (Digoxin 250 Mcg/Ml Inj 2 Ml) 125 mcg IVP ONCE JACK Glucagon (Glucagon 1 Mg/Ml Kit 1 Ml) 1 mg IM ONCE PRN; Protocol PRN Reason: Adult Acute Hypoglycemia Nursing Prot. Amiodarone HCl/Dextrose (Nexterone) 360 mg in 200 mls @ 0 mls/hr IV .Q0M JACK; Protocol Last Titration: 02/14/24 23:59 Dose: 0 mg/min, 0 mls/hr Dextrose (D5w) 500 mls @ 0 mls/hr IV ONCE PRN; Protocol PRN Reason: Adult Acute Hypoglycemia Prot Dextrose (D10w) 125 mls @ 750 mls/hr IV PRN PRN; Protocol PRN Reason: Adult Acute Hypoglycemia Nursing Protocol Dextrose (D10w) 250 mls @ 1,000 mls/hr IV PRN PRN; Protocol PRN Reason: Adult Acute Hypoglycemia Nursing Protocol Insulin Human Lispro (Insulin Lispro 100 Unit/1 Ml) 0 unit SUBCUT WM&BEDTIME JACK; Protocol Last Admin: 02/15/24 07:46 Dose: Not Given Ondansetron HCl (Ondansetron 2 Mg/Ml Sdv 2 Ml) 4 mg IVP Q8H PRN PRN Reason: vomiting, or N/V if npo Pantoprazole Sodium (Pantoprazole Dr 40 Mg Tablet) 40 mg PO DAILY JACK Last Admin: 02/15/24 09:00 Dose: 40 mg Vitals/I&O/Wt Last Vital Signs Temp 97.7 F 02/15/24 07:00 Pulse 65 02/15/24 09:00 Resp 15 02/15/24 09:00 BP 137/65 02/15/24 09:00 Pulse Ox 95 02/15/24 09:00 O2 Del Method Room Air 02/14/24 08:15 02/14/24 02/15/24 02/15/24 22:59 06:59 14:59 Intake Total 550 / 1050.000 147.53 / 1197.530 360 / 360 Balance 550 / 1050.000 147.53 / 1197.530 360 / 360 Weight last 48 hrs Weight 154 lb 8 oz Weight 152 lb 1.6 oz Weight 152 lb 1.6 oz Weight 150 lb Physical Exam Narrative: GENERAL: The patient is alert and oriented times three. Not in any acute distress. HEENT: No significant pallor, icterus or lymphadenopathy.Oral cavity: There are no mucous membrane lesions. NECK: Trachea appears to be central. No masses noted. No JVD or thyromegaly appreciated. RESPIRATORY: Chest is symmetrical. No intercostals muscle retraction or any accessory muscle activation. There is no chest wall tenderness. Breath sounds are heard bilaterally. No rales or rhonchi heard. No evidence of any consolidation. BREASTS: Deferred. HEART: The heart sounds are normal. No S3 or S4. Short systolic murmur in the lower sternal border. No diastolic murmurs.. No pericardial rub ABDOMEN: No vessel pulsations or distention. No tenderness. No organomegaly appreciated. Bowel sounds are normally heard. : Deferred. RECTAL: Deferred. LYMPHATIC: No lymphadenopathy noted in the neck. EXTREMITIES: Peripheral pulses are palpable but weak bilaterally. MUSCULOSKELETAL: No acute joint deformities or swelling SKIN: There are no significant rashes or ecchymosis NEUROPSYCHIATRIC: The patient is alert and oriented x3. Appears to be in a good mood. No tremors or rigidity noted. Data 02/15/24 03:33 02/15/24 03:33 Other Labs: Laboratory Last Values WBC 5.26 10^3/uL (3.29-11.43) 02/15/24 03:33 RBC 3.55 10^6/uL (3.85-5.65) L 02/15/24 03:33 Hgb 10.30 g/dL (11.27-16.99) L 02/15/24 03:33 Hct 32.9 % (36-47) L 02/15/24 03:33 MCV 92.7 fl (85-98) 02/15/24 03:33 MCH 29.0 pg (27-33) 02/15/24 03:33 MCHC 31.3 g/dL (30-55) 02/15/24 03:33 RDW 14.0 % (12.1-15.1) 02/15/24 03:33 Plt Count 218 10^3/cmm (157-399) 02/15/24 03:33 MPV 10.1 fL (7.4-10.4) 02/15/24 03:33 Neut % (Auto) 44.5 % 02/15/24 03:33 Lymph % (Auto) 44.3 % 02/15/24 03:33 Rhea % (Auto) 7.0 % 02/15/24 03:33 Eos % (Auto) 3.2 % 02/15/24 03:33 Baso % (Auto) 0.8 % 02/15/24 03:33 Neut # (Auto) 2.34 10^3/uL (1.8-7.7) 02/15/24 03:33 Lymph # (Auto) 2.3 10^3/uL (0.8-4.8) 02/15/24 03:33 Rhea # (Auto) 0.4 10^3/uL (0.2-0.9) 02/15/24 03:33 Eos # (Auto) 0.2 10^3/uL (0.0-0.8) 02/15/24 03:33 Baso # (Auto) 0.0 10^3/uL (0.0-0.1) 02/15/24 03:33 Nucleated RBC % (auto) 0 % 02/15/24 03:33 Nucleated RBCs # 0.0 /100WBC 02/15/24 03:33 Sodium 143 mmol/L (136-145) 02/15/24 03:33 Potassium 4.1 mmol/L (3.5-5.1) 02/15/24 03:33 Chloride 111 mmol/L (98-107) H 02/15/24 03:33 Carbon Dioxide 21 mmol/L (22-29) L 02/15/24 03:33 Anion Gap 15.1 (5-19) 02/15/24 03:33 BUN 17 mg/dL (8-23) 02/15/24 03:33 Creatinine 1.1 mg/dL (0.5-0.9) H 02/15/24 03:33 GFR Calculation Not Reportable 02/15/24 03:33 Glucose 83 mg/dL (65-115) 02/15/24 03:33 POC Glucose 88 mg/dL (70-110) 02/15/24 07:38 Calculated Osmolality 297 mOsm/kg (285-295) H 02/15/24 03:33 Calcium 8.7 mg/dL (8.5-10.5) 02/15/24 03:33 Magnesium 1.9 mg/dL (1.7-2.3) 02/13/24 22:21 Total Bilirubin 0.2 mg/dL (0.15-1.2) 02/15/24 03:33 AST 18 U/L (0-32) 02/15/24 03:33 ALT 14 U/L (0-33) 02/15/24 03:33 Alkaline Phosphatase 48 U/L (35-105) 02/15/24 03:33 Troponin T Baseline 44 ng/L (0-10) H 02/13/24 22:21 Troponin T 120 Minute 52.95 ng/L (0-10) H 02/14/24 00:35 Delta Troponin T 8.95 ABS# (0-10) 02/14/24 00:35 Troponin T Hi Sens 6Hr 58.34 ng/L (0-10) H 02/14/24 04:17 Troponin T Hi Sens 6Hr Delta 14.34 ng/L (0-12) H* 02/14/24 04:17 Total Protein 6.5 g/dL (6.6-8.7) L 02/15/24 03:33 Albumin 3.7 g/dL (3.5-5.2) 02/15/24 03:33 Globulin 2.8 g/dL (1.3-4.6) 02/15/24 03:33 TSH 8.20 uIU/mL (0.27-4.20) H 02/15/24 03:33 Urine Color Yellow (Yellow) 02/13/24 23:04 Urine Appearance Clear (CLEAR) 02/13/24 23:04 Urine pH 5 (5-7) 02/13/24 23:04 Ur Specific [place] 1.005 (1.005-1.030) 02/13/24 23:04 Urine Protein Neg (Negative) 02/13/24 23:04 Urine Glucose (UA) 2+ (Normal) H 02/13/24 23:04 Urine Ketones Negative (Negative) 02/13/24 23:04 Urine Blood Neg (Negative) 02/13/24 23:04 Urine Nitrate Negative 02/13/24 23:04 Urine Bilirubin Neg (Negative) 02/13/24 23:04 Urine Urobilinogen Norm mg/dL (Negative) 02/13/24 23:04 Ur Leukocyte Esterase Negative (Negative) 02/13/24 23:04 Other data: Echocardiogram from 02/14/2024 Severe diffuse hypokinesia of the LV apex. Moderate hypokinesia of the other segments. LV ejection fraction of 34%. Some echodensities in the LV apex, may suggest calcified structures endocardial structures. No obvious masses noted. Moderate biatrial enlargement Pacemaker/defibrillator wires in the right atrium/right ventricle Mild mitral annular calcification. There is no pericardial effusion. Compared to the study from 06/25/2023, there is a drop in the LV ejection fraction from 45% to 34% A&P Assessment and plan (1) Atrial fibrillation with RVR: Patient started on amiodarone 400 mg p.o. twice daily. This may be continued for a week followed by 400 mg p.o. daily, followed by 200 mg p.o. daily. (2) Atherosclerosis of coronary artery of [place] heart without angina pectoris: The coronary artery disease seems to be stable. The slightly elevated troponin T, most likely from type II [place]. She did not have any revascularizable lesions by angiogram in June of last year. May continue on the current treatment Qualifiers: Coronary Disease-Associated Artery/Lesion type: [place] artery Qualified Code(s): I25.10 - Atherosclerotic heart disease of [place] coronary artery without angina pectoris (3) Right-sided extracranial carotid artery stenosis: Patient has moderate disease in the right ICA. The carotid Doppler examination need to be repeated to follow-up on this. Current open examination was performed today. Patient was found to have 50 to 69% stenosis on the right side and less than 50% stenosis on the left side Will continue on the current management for the time being (4) LV (left ventricular) mural thrombus: Patient is on long-term oral anticoagulation. This may be continued. Echocardiogram done yesterday revealed no definite thrombus. But the apex could not be visualized well (5) Ischemic cardiomyopathy: LV ejection fraction was found to be 34%. Patient advised to continue on the current management. (6) ICD (implantable cardioverter-defibrillator), dual, in situ: The defibrillator function was found to be appropriate. There were 2 episodes of V. tach with overdrive pacing Plan Her other problems are #1. History of CVA #2 abnormal kidney function-stable #3 history of rheumatoid arthritis #4 history of hypertension #6 dyslipidemia #7 history of congestive heart failure, currently compensated The patient may be transferred to the telemetry floor today. Continue on the amiodarone 400 mg p.o. twice daily as mentioned above. Also will try to get the medical records from [facility] in [place] Attestations Medical Necessity Statement*: Patient requires continued hospital stay for close monitoring and further management Coding Level of Care Code 17655 Diagnoses Atrial fibrillation with RVR I48.91 Atherosclerosis of [place] coronary artery of [place] heart without angina pectoris I25.10 Coronary Disease-Associated Artery/Lesion type: [place] artery Right-sided extracranial carotid artery stenosis I65.21 LV (left ventricular) mural thrombus I51.3 Ischemic cardiomyopathy I25.5 ICD (implantable cardioverter-defibrillator), dual, in situ Z95.810
--- NOTE | 2024-02-15 10:05 | USCV_ITS ---
Evonne Richard Age: 78 Gender: F : 1945 Exam Date: 02/15/2024 10:48 Ordering Phys: Piedad Pascal MD ([email or web address]) Technologist: [place] [facility] [place] cca stenosis Risk Factors: Previous Vascular Surgery: Right Brachial BP: / Left Brachial BP: / Right Left Velocity (cm/s) Spectral Plaque Velocity (cm/s) Spectral Plaque Syst/Diast Broadening Syst/Diast Broadening 62.90/ 14.80 Prox CCA 71.10 / 59.80/ 13.20 Mid CCA 55.20 / 10.40 61.30/ 16.30 Hetro Distal CCA 85.00 / 23.20 Hetro 135.70/26.10 Hetro Prox ICA 104.20/ 27.50 Hetro 151.00/41.40 Mid ICA 138.30/ 29.60 135.70/30.50 Distal ICA 142.50/ 36.00 102.30 ECA 65.80 2.50 ICA/CCA 1.70 Antegrade Vertebral Antegrade 45.70/ 12.90 cm/s 50.50/ 8.20 cm/s Bi Subclavian Bi 69.70 101.2 0 FINDINGS Moderate heterogenous irregular plaque to the right bifurcation and proximal ICA Mild to moderate plaque at the left bifurcation and proximal ICA Moderate diffuse plaques in the ICAs bilaterally Antegrade flow in the vertebral arteries bilaterally. Normal Doppler velocities in the subclavian and external carotid arteries bilaterally CONCLUSIONS Moderate heterogenous irregular plaque to the right bifurcation and proximal ICA suggesting 50 to 69% stenosis Mild to moderate plaque at the left bifurcation and proximal ICA, suggesting less than 50% stenosis Moderate diffuse plaques in the mid and distal ICAs bilaterally. No significant stenosis in the vertebral, subclavian and external carotid arteries bilaterally Dr Piedad Pascal MD [facility] (Electronically Signed) Final Date: 15 February 2024 12:09 S
[2024-02-15 10:13] LABS: Free T4 Free Thyroxine 1.44 ng/dL (0.82-1.77)
--- NOTE | 2024-02-15 10:44 | PC.NURSE ---
Report called to CAPRICE Rubin on Medical Surgical floor. Patient transferred to the medical surgical floor via wheelchair at 1150. Belongings placed at bedside, patient transferred from wheelchair to bed independently. She denies pain at this time and is noted to be alert and orientated x4 at time of transfer. CAPRICE Rubin notified of patient's arrival.
[2024-02-15 11:17] LABS: Glucose Point of Care 102 mg/dL (70-110)
[2024-02-15 16:16] LABS: Glucose Point of Care 135 mg/dL (70-110)
[2024-02-15 20:34] LABS: Glucose Point of Care 109 mg/dL (70-110)
--- NOTE | 2024-02-15 21:02 | P.PN_ITS ---
Subjective 2 Subjective: She reports she is doing well today. Transitioned off IV amiodarone to oral therapy. Vitals/I&O/Wt Last Vital Signs Temp 98.4 F 02/15/24 20:09 Pulse 64 02/15/24 20:09 Resp 16 02/15/24 20:09 BP 122/68 02/15/24 20:09 Pulse Ox 96 02/15/24 20:09 O2 Del Method Room Air 02/15/24 20:09 02/15/24 02/15/24 02/15/24 06:59 14:59 22:59 Intake Total 147.53 / 1197.530 840 / 840 480 / 1320 Balance 147.53 / 1197.530 840 / 840 480 / 1320 Weight last 48 hrs Weight 70.08 kg Weight 68.991 kg Weight 68.991 kg Weight 68.039 kg Physical Exam 2 Const: COMMON NORMALS: patient oriented x3 and alert GENERAL APPEARANCE: c ooperative ORIENTATION/CONSCIOUSNESS: Yes awake HENMT: COMMON NORMALS: oropharynx normal Neck/C-Spine: COMMON NORMALS: no JVD Resp: COMMON NORMALS: normal respiratory effort and clear to auscultation bilaterally AUSCULTATION: clear to auscultation bilaterally Cardio: COMMON NORMALS: no JVD, regular rhythm, S1 normal heart sound present, S2 normal heart sound present and No murmurs present (Cardio) RHYTHM: regular rhythm HEART SOUNDS: S1 normal heart sound present and S2 normal heart sound present GI: COMMON NORMALS: Normal to inspection, nondistended, normoactive bowel sounds present, Soft to palpation and non-tender PALPATION: Yes Soft to palpation Extremity: COMMON NORMALS: no joint enlargement and no pedal edema Neuro: COMMON NORMALS: patient oriented x3 and moves all extremities S ENSORIUM/ORIENTATION: Yes alert Skin: COMMON NORMALS: no rashes or lesions noted GENERAL SKIN EXAM: no rashes or lesions noted Data 02/15/24 03:33 02/15/24 03:33 A&P Assessment and plan (1) Atrial fibrillation with RVR: Reviewed vitals, CBC, CMP, TSH. Discussed with director product development. Switched over to oral amiodarone. Improved. Blood pressures are doing better. 118/50. Heart rate 60. Reviewed vitals, CBC, CMP, magnesium, troponin, UA, discussed with director product development. Discussed with case management. Continue IV amiodarone. She will be switched to oral amiodarone. Monitor for risk of bradycardia. Monitor on telemetry. Can transfer out of ICU. Echocardiogram with noted decrease in ejection fraction down to 35% from 45%. Unclear if may be secondary to tachycardia. Does have moderate troponin elevation 44 at 6 hours up to 2.3 with positive delta. No chest pain or pressure. May be secondary to tachycardia. Reviewed cardiology note, consider secondary to type II [place]. Echocardiogram from June 2023 with diffuse hypokinesia of the mid and apical septum with LVEF of 45%. Underwent coronary angiogram in June 2023 which showed moderate RCA stenosis without any intervenable lesions. Low probability of PE given patient is chronically anticoagulated with Eliquis, will continue same. Hold Aldactone and valsartan currently no ssigns of CHF decompensation (2) S/P ablation of atrial fibrillation: Plan Anemia: Hemoglobin down to 10.5. Platelets normal. Check Hemoccult. Increase PPI to twice daily for now. Check iron studies. CRISTÓBAL: Mild CRISTÓBAL, creatinine up to 1.1. BUN 17. She is tolerating oral intake. On statin. Will check CK. Check digoxin level. Carotid artery disease: Carotid duplex with moderate heterogenous irregular plaque to the right bifurcation and proximal ICA suggesting 50 to 69% stenosis. Mild to moderate plaque on the left, less than 50% stenosis. Moderate diffuse plaque bilaterally. He is on Eliquis, continue oral anticoagulation monotherapy as per ACC consensus due to bleeding risk. Elevated TSH: TSH on review found to be 8.2. Requested free T4. Diabetes mellitus: Low-dose insulin sliding scale Attestations 2 Medical Necessity Statement*: Continue admission for optimization of control of atrial fibrillation with RVR, with new cardiomyopathy with new decrease in ejection fraction down to 35% from previously 45% in a lady with underlying coronary disease, high risk of decompensation. and High MDM includes amount and/or complexity of data reviewed/ordered [ resulted lab(s)/test(s), ordered lab(s)/test(s) and other healthcare professional discussion] as documented Diagnoses Atrial fibrillation with RVR I48.91 S/P ablation of atrial fibrillation Z98.890; Z86.79
[2024-02-16 03:06] LABS: Basophils # 0.1 10^3/uL (0.0-0.1); Basophils % 0.8 %; Eosinophils # 0.2 10^3/uL (0.0-0.8); Eosinophils % 3.5 %; Hematocrit 33.6 % (36-47); Lymphocytes # 2.7 10^3/uL (0.8-4.8); Lymphocytes % 42.7 %; Mean Corpuscular HGB Conc 31.5 g/dL (30-55); Mean Corpuscular Hemoglobin 28.7 pg (27-33); Mean Corpuscular Volume 91.1 fl (85-98); Mean Platelet Volume 9.6 fL (7.4-10.4); Monocytes # 0.5 10^3/uL (0.2-0.9); Monocytes % 7.4 %; Neutrophils # 2.87 10^3/uL (1.8-7.7); Neutrophils % 45.4 %; Nucleated Red Blood Cells % 0 %; Platelet Count 231 10^3/cmm (157-399); Red Blood Count 3.69 10^6/uL (3.85-5.65); Red Cell Distribution Width 13.9 % (12.1-15.1); White Blood Count 6.32 10^3/uL (3.29-11.43)
[2024-02-16 03:25] LABS: Digoxin 0.3 ng/mL (0.6-1.2)
[2024-02-16 03:31] LABS: Ferritin 197 ng/mL (15-150); Iron 49 ug/dL (37-145); Percent Saturation 21.3 % (20-50); Total Iron Binding Capacity 229 mcg/dl; Unsaturated Iron Binding 180 ug/dL (112-347)
[2024-02-16 03:40] LABS: Anion Gap 14.9 (5-19); Blood Urea Nitrogen 19 mg/dL (8-23); Calcium 8.8 mg/dL (8.5-10.5); Carbon Dioxide 22 mmol/L (22-29); Chloride 108 mmol/L (98-107); Creatinine Clr Calc Pharmacy 35.6901; Glucose 87 mg/dL (65-115); Osmolality Calculated 294 mOsm/kg (285-295); Potassium 3.9 mmol/L (3.5-5.1); Sodium 141 mmol/L (136-145)
[2024-02-16 04:10] VITALS: BP 146/79; PULSE 68; RESP 15; TEMP 36.5; O2SAT 96
[2024-02-16 06:32] LABS: Glucose Point of Care 86 mg/dL (70-110)
[2024-02-16 08:27] VITALS: BP 143/78; PULSE 64; RESP 18; TEMP 36.3; O2SAT 96
[2024-02-16] MEDS: atorvastatin 40 mg Tablet 80 MG PO (08:33)
[2024-02-16] MEDS: pantoprazole DR 40 mg Tablet PO ×2 (08:34→17:36)
[2024-02-16] MEDS: apixaban 5 mg Tablet PO ×2 (08:34→17:36)
[2024-02-16] MEDS: amiodarone 200 mg Tablet 400 MG PO ×2 (08:34→17:35)
--- NOTE | 2024-02-16 09:24 | P.PN_ITS ---
Subjective 2 Subjective: Patient had 3 episodes of nonsustained ventricular tachycardia on the monitor. One of the episodes was symptomatic. She was started on metoprolol 25 mg p.o. twice daily Medications: Medication Review Details: Current Medications Acetaminophen (Acetaminophen 325 Mg Tablet) 650 mg PO Q6H PRN PRN Reason: Mild/Mod Pain Or Temp >/= 101 Amiodarone HCl (Amiodarone 200 Mg Tablet) 400 mg PO BID [facility] Last Admin: 02/16/24 08:34 Dose: 400 mg Apixaban (Apixaban 5 Mg Tablet) 5 mg PO BID JACK Last Admin: 02/16/24 08:34 Dose: 5 mg Atorvastatin Calcium (Atorvastatin 40 Mg Tablet) 80 mg PO DAILY JACK Last Admin: 02/16/24 08:33 Dose: 80 mg Digoxin (Digoxin 250 Mcg/Ml Inj 2 Ml) 125 mcg IVP ONCE JACK Glucagon (Glucagon 1 Mg/Ml Kit 1 Ml) 1 mg IM ONCE PRN; Protocol PRN Reason: Adult Acute Hypoglycemia Nursing Prot. Amiodarone HCl/Dextrose (Nexterone) 360 mg in 200 mls @ 0 mls/hr IV .Q0M [facility]; Protocol Last Titration: 02/15/24 14:00 Dose: 0 mg/min, 0 mls/hr Dextrose (D5w) 500 mls @ 0 mls/hr IV ONCE PRN; Protocol PRN Reason: Adult Acute Hypoglycemia Prot Dextrose (D10w) 125 mls @ 750 mls/hr IV PRN PRN; Protocol PRN Reason: Adult Acute Hypoglycemia Nursing Protocol Dextrose (D10w) 250 mls @ 1,000 mls/hr IV PRN PRN; Protocol PRN Reason: Adult Acute Hypoglycemia Nursing Protocol Insulin Human Lispro (Insulin Lispro 100 Unit/1 Ml) 0 unit SUBCUT WM&BEDTIME [facility]; Protocol Last Admin: 02/16/24 07:55 Dose: Not Given Ondansetron HCl (Ondansetron 2 Mg/Ml Sdv 2 Ml) 4 mg IVP Q8H PRN PRN Reason: vomiting, or N/V if npo Pantoprazole Sodium (Pantoprazole Dr 40 Mg Tablet) 40 mg PO BID [facility] Last Admin: 02/16/24 08:34 Dose: 40 mg Vitals/I&O/Wt Last Vital Signs Temp 97.4 F L 06/30/24 08:27 Pulse 64 02/16/24 08:27 Resp 18 02/16/24 08:27 BP 143/78 02/16/24 08:27 Pulse Ox 96 02/16/24 08:27 O2 Del Method Room Air 02/16/24 08:27 02/15/24 02/16/24 02/16/24 22:59 06:59 14:59 Intake Total 720 / 1560 480 / 480 Balance 720 / 1560 480 / 480 Weight last 48 hrs Weight 154 lb 5 oz Weight 154 lb 8 oz Physical Exam 2 Narrative: GENERAL: The patient is alert and oriented times three. Not in any acute distress. HEENT: No significant pallor, icterus or lymphadenopathy.Oral cavity: There are no mucous membrane lesions. NECK: Trachea appears to be central. No masses noted. No JVD or thyromegaly appreciated. RESPIRATORY: Chest is symmetrical. No intercostals muscle retraction or any accessory muscle activation. There is no chest wall tenderness. Breath sounds are heard bilaterally. No rales or rhonchi heard. No evidence of any consolidation. BREASTS: Deferred. HEART: The heart sounds are normal. No S3 or S4. Short systolic murmur in the lower sternal border. No diastolic murmurs.. No pericardial rub ABDOMEN: No vessel pulsations or distention. No tenderness. No organomegaly appreciated. Bowel sounds are normally heard. : Deferred. RECTAL: Deferred. LYMPHATIC: No lymphadenopathy noted in the neck. EXTREMITIES: Peripheral pulses are palpable but weak bilaterally. MUSCULOSKELETAL: No acute joint deformities or swelling SKIN: There are no significant rashes or ecchymosis NEUROPSYCHIATRIC: The patient is alert and oriented x3. Appears to be in a good mood. No tremors or rigidity noted. Data 02/16/24 02:47 02/16/24 02:47 Other Labs: Laboratory Last Values WBC 6.32 10^3/uL (3.29-11.43) 02/16/24 02:47 RBC 3.69 10^6/uL (3.85-5.65) L 02/16/24 02:47 Hgb 10.60 g/dL (11.27-16.99) L 02/16/24 02:47 Hct 33.6 % (36-47) L 02/16/24 02:47 MCV 91.1 fl (85-98) 02/16/24 02:47 MCH 28.7 pg (27-33) 02/16/24 02:47 MCHC 31.5 g/dL (30-55) 02/16/24 02:47 RDW 13.9 % (12.1-15.1) 02/16/24 02:47 Plt Count 231 10^3/cmm (157-399) 02/16/24 02:47 MPV 9.6 fL (7.4-10.4) 02/16/24 02:47 Neut % (Auto) 45.4 % 02/16/24 02:47 Lymph % (Auto) 42.7 % 02/16/24 02:47 [place] % (Auto) 7.4 % 02/16/24 02:47 Eos % (Auto) 3.5 % 02/16/24 02:47 Baso % (Auto) 0.8 % 02/16/24 02:47 Neut # (Auto) 2.87 10^3/uL (1.8-7.7) 02/16/24 02:47 Lymph # (Auto) 2.7 10^3/uL (0.8-4.8) 02/16/24 02:47 [place] # (Auto) 0.5 10^3/uL (0.2-0.9) 02/16/24 02:47 Eos # (Auto) 0.2 10^3/uL (0.0-0.8) 02/16/24 02:47 Baso # (Auto) 0.1 10^3/uL (0.0-0.1) 02/16/24 02:47 Nucleated RBC % (auto) 0 % 02/16/24 02:47 Nucleated RBCs # 0.0 /100WBC 02/16/24 02:47 Sodium 141 mmol/L (136-145) 02/16/24 02:47 Potassium 3.9 mmol/L (3.5-5.1) 02/16/24 02:47 Chloride 108 mmol/L (98-107) H 02/16/24 02:47 Carbon Dioxide 22 mmol/L (22-29) 02/16/24 02:47 Anion Gap 14.9 (5-19) 02/16/24 02:47 BUN 19 mg/dL (8-23) 02/16/24 02:47 Creatinine 1.2 mg/dL (0.5-0.9) H 02/16/24 02:47 GFR Calculation Not Reportable 02/16/24 02:47 Glucose 87 mg/dL (65-115) 02/16/24 02:47 POC Glucose 86 mg/dL (70-110) 02/16/24 06:29 Calculated Osmolality 294 mOsm/kg (285-295) 02/16/24 02:47 Calcium 8.8 mg/dL (8.5-10.5) 02/16/24 02:47 Magnesium 1.9 mg/dL (1.7-2.3) 02/13/24 22:21 Iron 49 ug/dL (37-145) 02/16/24 02:47 TIBC 229 mcg/dl 02/16/24 02:47 % Saturation 21.3 % (20-50) 02/16/24 02:47 Unsat Iron Binding 180 ug/dL (112-347) 02/16/24 02:47 Ferritin 197 ng/mL (15-150) H 02/16/24 02:47 Total Bilirubin 0.2 mg/dL (0.15-1.2) 02/15/24 03:33 AST 18 U/L (0-32) 02/15/24 03:33 ALT 14 U/L (0-33) 02/15/24 03:33 Alkaline Phosphatase 48 U/L (35-105) 02/15/24 03:33 Troponin T Baseline 44 ng/L (0-10) H 02/13/24 22:21 Troponin T 120 Minute 52.95 ng/L (0-10) H 02/14/24 00:35 Delta Troponin T 8.95 ABS# (0-10) 02/14/24 00:35 Troponin T Hi Sens 6Hr 58.34 ng/L (0-10) H 02/14/24 04:17 Troponin T Hi Sens 6Hr Delta 14.34 ng/L (0-12) H* 02/14/24 04:17 Total Protein 6.5 g/dL (6.6-8.7) L 02/15/24 03:33 Albumin 3.7 g/dL (3.5-5.2) 02/15/24 03:33 Globulin 2.8 g/dL (1.3-4.6) 02/15/24 03:33 TSH 8.20 uIU/mL (0.27-4.20) H 02/15/24 03:33 Free T4 1.44 ng/dL (0.82-1.77) 02/15/24 03:33 Urine Color Yellow (Yellow) 02/13/24 23:04 Urine Appearance Clear (CLEAR) 02/13/24 23:04 Urine pH 5 (5-7) 02/13/24 23:04 Ur Specific [place] 1.005 (1.005-1.030) 02/13/24 23:04 Urine Protein Neg (Negative) 02/13/24 23:04 Urine Glucose (UA) 2+ (Normal) H 02/13/24 23:04 Urine Ketones Negative (Negative) 02/13/24 23:04 Urine Blood Neg (Negative) 02/13/24 23:04 Urine Nitrate Negative 02/13/24 23:04 Urine Bilirubin Neg (Negative) 02/13/24 23:04 Urine Urobilinogen Norm mg/dL (Negative) 02/13/24 23:04 Ur Leukocyte Esterase Negative (Negative) 02/13/24 23:04 Digoxin 0.3 ng/mL (0.6-1.2) L 02/16/24 02:47 A&P Assessment and plan (1) Ventricular tachycardia: Will continue on the amiodarone. Will increase the dose of metoprolol to 50 mg p.o. twice daily Continue on the other medications (2) Atrial fibrillation with RVR: Patient started on amiodarone 400 mg p.o. twice daily. This may be continued for a week followed by 400 mg p.o. daily, followed by 200 mg p.o. daily. (3) Atherosclerosis of coronary artery of [place] heart without angina pectoris: The coronary artery disease seems to be stable. The slightly elevated troponin T, most likely from type II [place]. She did not have any revascularizable lesions by angiogram in June of last year. May continue on the current treatment Qualifiers: Coronary Disease-Associated Artery/Lesion type: [place] artery Qualified Code(s): I25.10 - Atherosclerotic heart disease of [place] coronary artery without angina pectoris (4) Right-sided extracranial carotid artery stenosis: Patient has moderate disease in the right ICA. The carotid Doppler examination need to be repeated to follow-up on this. Current open examination was performed today. Patient was found to have 50 to 69% stenosis on the right side and less than 50% stenosis on the left side Will continue on the current management for the time being (5) LV (left ventricular) mural thrombus: Patient is on long-term oral anticoagulation. This may be continued. Echocardiogram done yesterday revealed no definite thrombus. But the apex could not be visualized well (6) Ischemic cardiomyopathy: LV ejection fraction was found to be 34%. Patient advised to continue on the current management. (7) ICD (implantable cardioverter-defibrillator), dual, in situ: The defibrillator function was found to be appropriate. There were 2 episodes of V. tach with overdrive pacing Plan Her other problems are #1. History of CVA #2 abnormal kidney function-stable #3 history of rheumatoid arthritis #4 history of hypertension #6 dyslipidemia #7 history of congestive heart failure, currently compensated Continue telemetry. If she continues to remain stable, may be discharged home tomorrow Attestations 2 Medical Necessity Statement*: Possible discharge home tomorrow Coding Level of Care Code 45053 Diagnoses Ventricular tachycardia I47.20 Atrial fibrillation with RVR I48.91 Atherosclerosis of [place] coronary artery of [place] heart without angina pectoris I25.10 Coronary Disease-Associated Artery/Lesion type: [place] artery Right-sided extracranial carotid artery stenosis I65.21 LV (left ventricular) mural thrombus I51.3 Ischemic cardiomyopathy I25.5 ICD (implantable cardioverter-defibrillator), dual, in situ Z95.810
[2024-02-16] MEDS: metoprolol succinate ER (24 HR) 25 mg Tablet PO ×2 (10:48→17:36)
[2024-02-16 11:02] LABS: Glucose Point of Care 120 mg/dL (70-110)
[2024-02-16 11:45] VITALS: BP 144/68; PULSE 64; RESP 18; TEMP 36.5; O2SAT 96
--- NOTE | 2024-02-16 12:32 | P.PN_ITS ---
Subjective 2 Subjective: She was having some palpitations earlier, developed wide-complex tachycardia, without lightheadedness or chest pain. Resolved spontaneously. Had an additional episode shortly after. Vitals/I&O/Wt Last Vital Signs Temp 97.7 F 02/16/24 11:45 Pulse 64 02/16/24 11:45 Resp 18 02/16/24 11:45 BP 144/68 02/16/24 11:45 Pulse Ox 96 02/16/24 11:45 O2 Del Method Room Air 02/16/24 11:45 02/15/24 02/16/24 02/16/24 22:59 06:59 14:59 Intake Total 720 / 1560 480 / 480 Balance 720 / 1560 480 / 480 Weight last 48 hrs Weight 69.995 kg Weight 70.08 kg Physical Exam 2 Narrative: Sitting up in bed. Const: COMMON NORMALS: patient oriented x3 and alert GENERAL APPEARANCE: c ooperative ORIENTATION/CONSCIOUSNESS: Yes awake HENMT: COMMON NORMALS: oropharynx normal Neck/C-Spine: COMMON NORMALS: no JVD Resp: COMMON NORMALS: normal respiratory effort and clear to auscultation bilaterally AUSCULTATION: clear to auscultation bilaterally Cardio: COMMON NORMALS: no JVD, regular rhythm, S1 normal heart sound present, S2 normal heart sound present and No murmurs present (Cardio) RHYTHM: regular rhythm HEART SOUNDS: S1 normal heart sound present and S2 normal heart sound present GI: COMMON NORMALS: Normal to inspection, nondistended, normoactive bowel sounds present, Soft to palpation and non-tender PALPATION: Yes Soft to palpation Extremity: COMMON NORMALS: no joint enlargement and no pedal edema Neuro: COMMON NORMALS: patient oriented x3 and moves all extremities S ENSORIUM/ORIENTATION: Yes alert Skin: COMMON NORMALS: no rashes or lesions noted GENERAL SKIN EXAM: no rashes or lesions noted Data 02/16/24 02:47 02/16/24 02:47 A&P Assessment and plan (1) Atrial fibrillation with RVR: Reviewed EKG strip, possible ventricular tachycardia, discussed with patient, she has discussed with content developer, and metoprolol being started. Discussed with content developer additional episode. Started on metoprolol, discussed with him for now staying in bed until metoprolol has had time to start working. Continue to monitor on telemetry. Continue amiodarone. Monitor for risk of hypotension with beta-елена with some worsening of kidney function. Reviewed vitals, CBC, CMP, digoxin level. Discussed with nursing. Echocardiogram with noted decrease in ejection fraction down to 35% from 45%. Unclear if may be secondary to tachycardia. Does have moderate troponin elevation 44 at 6 hours up to 2.3 with positive delta. No chest pain or pressure. May be secondary to tachycardia. Reviewed cardiology note, consider secondary to type II [place]. Echocardiogram from June 2023 with diffuse hypokinesia of the mid and apical septum with LVEF of 45%. Underwent coronary angiogram in June 2023 which showed moderate RCA stenosis without any intervenable lesions. Low probability of PE given patient is chronically anticoagulated with Eliquis, will continue same. Hold Aldactone and valsartan currently no signs of CHF decompensation (2) S/P ablation of atrial fibrillation: Plan Anemia: Hemoglobin steady at 10.6. Platelets normal. Requested Hemoccult. Increased PPI to twice daily for now. Reviewed iron studies. No suggestion of iron deficiency. Reassess blood counts. CRISTÓBAL: Mild CRISTÓBAL, creatinine up to 1.2. BUN 19. Digoxin level is okay. Reviewed UA. She is tolerating oral intake. On statin. Will check CK. Carotid artery disease: Carotid duplex with moderate heterogenous irregular plaque to the right bifurcation and proximal ICA suggesting 50 to 69% stenosis. Mild to moderate plaque on the left, less than 50% stenosis. Moderate diffuse plaque bilaterally. He is on Eliquis, continue oral anticoagulation monotherapy as per ACC consensus due to bleeding risk. Elevated TSH: TSH on review found to be 8.2. Reviewed free T4, normal. Diabetes mellitus: Low-dose insulin sliding scale Attestations 2 Medical Necessity Statement*: Continue hospitalization for assessment management of A-fib with RVR, wide- complex tachycardia. Diagnoses Atrial fibrillation with RVR I48.91 S/P ablation of atrial fibrillation Z98.890; Z86.79
[2024-02-16 13:06] LABS: Creatine Phosphokinase 60 U/L (26-192)
[2024-02-16 15:58] VITALS: BP 144/73; PULSE 61; RESP 18; TEMP 36.7; O2SAT 96
[2024-02-16 16:52] LABS: Glucose Point of Care 108 mg/dL (70-110)
[2024-02-16 19:32] VITALS: BP 124/74; PULSE 60; RESP 17; TEMP 36.7; O2SAT 97
[2024-02-16 20:35] LABS: Glucose Point of Care 131 mg/dL (70-110)
--- NOTE | 2024-02-16 21:56 | PC.NURSE ---
Patient due to have 50mg metoprolol at 2100. Heart rate is currently 60, blood pressure 124/74. Physician notified of vital signs and gave orders to this nurse to hold night time dose. Plan of care ongoing.
[2024-02-16 22:00] VITALS: PULSE 60
[2024-02-17] VITALS (30 sets, daily range): BP systolic 71–157; BP diastolic 43–84; PULSE 59–162; RESP 13–27; TEMP 36.6–36.8; O2SAT 94–98
[2024-02-17 03:23] LABS: Basophils # 0.1 10^3/uL (0.0-0.1); Basophils % 0.7 %; Eosinophils # 0.2 10^3/uL (0.0-0.8); Eosinophils % 2.8 %; Hematocrit 35.7 % (36-47); Lymphocytes # 2.5 10^3/uL (0.8-4.8); Lymphocytes % 37.2 %; Mean Corpuscular HGB Conc 31.4 g/dL (30-55); Mean Corpuscular Hemoglobin 29.3 pg (27-33); Mean Corpuscular Volume 93.5 fl (85-98); Monocytes # 0.6 10^3/uL (0.2-0.9); Monocytes % 9.4 %; Neutrophils # 3.39 10^3/uL (1.8-7.7); Neutrophils % 49.8 %; Nucleated Red Blood Cells % 0 %; Platelet Count 236 10^3/cmm (157-399); Red Blood Count 3.82 10^6/uL (3.85-5.65); White Blood Count 6.82 10^3/uL (3.29-11.43)
[2024-02-17 03:47] LABS: Anion Gap 13.2 (5-19); Blood Urea Nitrogen 20 mg/dL (8-23); Calcium 8.9 mg/dL (8.5-10.5); Carbon Dioxide 23 mmol/L (22-29); Chloride 110 mmol/L (98-107); Creatinine Clr Calc Pharmacy 32.9259; Glucose 94 mg/dL (65-115); Osmolality Calculated 296 mOsm/kg (285-295); Potassium 4.2 mmol/L (3.5-5.1); Sodium 142 mmol/L (136-145)
[2024-02-17] MEDS: metoprolol tartrate 1 mg/1 mL SDV 5 mL 5 MG (05:22)
[2024-02-17] MEDS: metoprolol tartrate 1 mg/1 mL SDV 5 mL 2.5 MG IVP (05:57)
[2024-02-17 06:22] LABS: Glucose Point of Care 105 mg/dL (70-110)
--- NOTE | 2024-02-17 07:02 | ECG_ITS ---
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 Measurements Intervals [place] Rate: 155 P: 0 DC: 0 QRS: 145 QRSD: 144 T: 11 QT: 339 QTc: 545 Interpretive Statements Ventricular tachycardia and atrial fibrillation CRITICAL TEST RESULT Compared to ECG 02/14/2024 07:34:05 Atrial-paced complex(es) or rhythm no longer present Myocardial infarct finding still present Electronically Signed On 02-18-2024 21:50:11 CDT by Piedad Pascal M.D. [id number]
[2024-02-17] MEDS: metoprolol tartrate 50 mg Tablet PO ×2 (07:10→20:00)
[2024-02-17] MEDS: amiodarone 200 mg Tablet 400 MG PO (07:10)
--- NOTE | 2024-02-17 07:10 | ECG_ITS ---
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 Measurements Intervals [place] Rate: 148 P: 0 AL: 0 QRS: 143 QRSD: 142 T: 6 QT: 341 QTc: 535 Interpretive Statements ATRIAL FIBRILLATION WITH RAPID VENTRICULAR RESPONSE INTRAVENTRICULAR CONDUCTION DELAY [130+ ms QRS DURATION] LATERAL MYOCARDIAL INFARCTION , OF INDETERMINATE AGE [40+ ms Q WAVE AND/OR ST/T ABNORMALITY IN I/aVL/V5/V6] Compared to ECG 02/17/2024 07:09:16 Atrial flutter no longer present Myocardial infarct finding still present Electronically Signed On 02-18-2024 22:05:43 CDT by Piedad Pascal M.D. [id number]
--- NOTE | 2024-02-17 07:28 | PC.NURSE ---
Patient is currently presenting afib with rvr and remains asymptomatic. This nurse was unable to get ahold of the hospitalist. Prior to this episode, it was discussed with Dr. Nicole overnight of possibly giving morning dose of 50mg metoprolol early. This nurse discussed patient's status with two charge nurses and were in agreement to give morning dose of amioderone and metoprolol early. After administration, the hospitalist was able to be contacted and this nurse explained the events that occurred early this morning. He was in agreement of giving amioderone and metoprolol early.
[2024-02-17] MEDS: pantoprazole DR 40 mg Tablet PO ×2 (08:32→17:08)
[2024-02-17] MEDS: apixaban 5 mg Tablet PO ×2 (08:32→17:08)
[2024-02-17] MEDS: atorvastatin 40 mg Tablet 80 MG PO (08:32)
--- NOTE | 2024-02-17 09:30 | PC.NURSE ---
Patient arrived to ICU at approximately 0845
[2024-02-17] MEDS: digoxin 250 mcg/ml INJ 2 mL IVP (09:46)
[2024-02-17] MEDS: lidocaine drip 2,000 MG/500 ML PREMIX 15 MG IV (10:37)
--- NOTE | 2024-02-17 11:16 | PC.NURSE ---
Upon arrival for my shift, this nurse noticed patient to be running 150-160 on the tele monitor. This nurse was assigned to patient. maintenance technician 2nd shift nurse and this nurse both went in to assess patient. Patient complains of her heart racing and chest feeling funny. Dr. King notified. EKG obtained; reading shows patient to be in afib with RVR. Morning amiodarone and metoprolol administered via PO route. Patient tolerated well. Continued monitoring patient throughout the morning. Patient starting to have several irregular rhythms on tele; two different episodes looking like runs of V-TACH. Patients' only complaint continued to be heart racing, chest feeling funny, and now shortness of breath. Dr King notified of findings and the tele findings as well. Orders were given to transfer patient to ICU. Patient transferred to ICU 7. Bedside report given to Jackelyn, supervisor in charge and patient care RN.
[2024-02-17 11:42] LABS: Glucose Point of Care 102 mg/dL (70-110)
--- NOTE | 2024-02-17 15:37 | PM.PN ---
Subjective Subjective: The patient started having episodes of atrial fibrillation with rapid ventricular rate and frequent episodes of nonsustained ventricular tachycardia on the monitor. She was brought down to the ICU. She was given IV lidocaine for a short.. But because there was no response, it was discontinued. She was started on IV amiodarone. Currently she is intermittently going back and forth into atrial fibrillation and nonsustained V. tach. Her blood pressure also has been fluctuating. No chest pain. No shortness of breath. Most of the times, she is asymptomatic. Medications: Medication Review Details: Current Medications Acetaminophen (Acetaminophen 325 Mg Tablet) 650 mg PO Q6H PRN PRN Reason: Mild/Mod Pain Or Temp >/= 101 Apixaban (Apixaban 5 Mg Tablet) 5 mg PO BID JACK Last Admin: 02/17/24 17:08 Dose: 5 mg Atorvastatin Calcium (Atorvastatin 40 Mg Tablet) 80 mg PO DAILY JACK Last Admin: 02/17/24 08:32 Dose: 80 mg Digoxin (Digoxin 250 Mcg/Ml Inj 2 Ml) 125 mcg IVP ONCE JACK Glucagon (Glucagon 1 Mg/Ml Kit 1 Ml) 1 mg IM ONCE PRN; Protocol PRN Reason: Adult Acute Hypoglycemia Nursing Prot. Dextrose (D5w) 500 mls @ 0 mls/hr IV ONCE PRN; Protocol PRN Reason: Adult Acute Hypoglycemia Prot Dextrose (D10w) 125 mls @ 750 mls/hr IV PRN PRN; Protocol PRN Reason: Adult Acute Hypoglycemia Nursing Protocol Dextrose (D10w) 250 mls @ 1,000 mls/hr IV PRN PRN; Protocol PRN Reason: Adult Acute Hypoglycemia Nursing Protocol Norepinephrine Bitartrate (Levophed) 4 mg in 250 mls @ 0 mls/hr IV .Q0M PRN; Protocol PRN Reason: Hypotension Lidocaine HCl/Dextrose (Lidocaine Drip) 2,000 mg in 500 mls @ 15 mls/hr IV .Q24H JACK Last Titration: 02/17/24 16:44 Dose: 0 mg/min, 0 mls/hr Amiodarone HCl/Dextrose (Nexterone) 360 mg in 200 mls @ 0 mls/hr IV .Q0M JACK; Protocol Last Admin: 02/17/24 17:26 Dose: 1 mg/min, 33.33 mls/hr Insulin Human Lispro (Insulin Lispro 100 Unit/1 Ml) 0 unit SUBCUT WM&BEDTIME [facility]; Protocol Last Admin: 02/17/24 21:25 Dose: Not Given Metoprolol Tartrate (Metoprolol Tartrate 50 Mg Tablet) 50 mg PO BID@0900,2100 [facility] Last Admin: 02/17/24 20:00 Dose: 50 mg Ondansetron HCl (Ondansetron 2 Mg/Ml Sdv 2 Ml) 4 mg IVP Q8H PRN PRN Reason: vomiting, or N/V if npo Pantoprazole Sodium (Pantoprazole Dr 40 Mg Tablet) 40 mg PO BID [facility] Last Admin: 02/17/24 17:08 Dose: 40 mg Vitals/I&O/Wt Last Vital Signs Temp 97.8 F 02/17/24 08:00 Pulse 156 H 02/17/24 13:00 Resp 20 H 02/17/24 13:00 BP 98/65 02/17/24 13:00 Pulse Ox 96 02/17/24 13:00 O2 Del Method Room Air 02/17/24 08:50 02/17/24 02/17/24 02/17/24 06:59 14:59 22:59 Intake Total 120 / 1680 360 / 360 Balance 120 / 1680 360 / 360 Weight last 48 hrs Weight 150 lb Weight 154 lb 5 oz Physical Exam Narrative: GENERAL: The patient is alert and oriented times three. Not in any acute distress. HEENT: No significant pallor, icterus or lymphadenopathy.Oral cavity: There are no mucous membrane lesions. NECK: Trachea appears to be central. No masses noted. No JVD or thyromegaly appreciated. RESPIRATORY: Chest is symmetrical. No intercostals muscle retraction or any accessory muscle activation. There is no chest wall tenderness. Breath sounds are heard bilaterally. No rales or rhonchi heard. No evidence of any consolidation. BREASTS: Deferred. HEART: The heart sounds are normal. No S3 or S4. Short systolic murmur in the lower sternal border. No diastolic murmurs.. No pericardial rub ABDOMEN: No vessel pulsations or distention. No tenderness. No organomegaly appreciated. Bowel sounds are normally heard. : Deferred. RECTAL: Deferred. LYMPHATIC: No lymphadenopathy noted in the neck. EXTREMITIES: Peripheral pulses are palpable but weak bilaterally. MUSCULOSKELETAL: No acute joint deformities or swelling SKIN: There are no significant rashes or ecchymosis NEUROPSYCHIATRIC: The patient is alert and oriented x3. Appears to be in a good mood. No tremors or rigidity noted. Data 02/17/24 02:18 02/17/24 02:18 Other Labs: Laboratory Last Values WBC 6.82 10^3/uL (3.29-11.43) 02/17/24 02:18 RBC 3.82 10^6/uL (3.85-5.65) L 02/17/24 02:18 Hgb 11.20 g/dL (11.27-16.99) L 02/17/24 02:18 Hct 35.7 % (36-47) L 02/17/24 02:18 MCV 93.5 fl (85-98) 02/17/24 02:18 MCH 29.3 pg (27-33) 02/17/24 02:18 MCHC 31.4 g/dL (30-55) 02/17/24 02:18 RDW 14.0 % (12.1-15.1) 02/17/24 02:18 Plt Count 236 10^3/cmm (157-399) 02/17/24 02:18 MPV 10.0 fL (7.4-10.4) 02/17/24 02:18 Neut % (Auto) 49.8 % 02/17/24 02:18 Lymph % (Auto) 37.2 % 02/17/24 02:18 [place] % (Auto) 9.4 % 02/17/24 02:18 Eos % (Auto) 2.8 % 02/17/24 02:18 Baso % (Auto) 0.7 % 02/17/24 02:18 Neut # (Auto) 3.39 10^3/uL (1.8-7.7) 02/17/24 02:18 Lymph # (Auto) 2.5 10^3/uL (0.8-4.8) 02/17/24 02:18 [place] # (Auto) 0.6 10^3/uL (0.2-0.9) 02/17/24 02:18 Eos # (Auto) 0.2 10^3/uL (0.0-0.8) 02/17/24 02:18 Baso # (Auto) 0.1 10^3/uL (0.0-0.1) 02/17/24 02:18 Nucleated RBC % (auto) 0 % 02/17/24 02:18 Nucleated RBCs # 0.0 /100WBC 02/17/24 02:18 Sodium 142 mmol/L (136-145) 02/17/24 02:18 Potassium 4.2 mmol/L (3.5-5.1) 02/17/24 02:18 Chloride 110 mmol/L (98-107) H 02/17/24 02:18 Carbon Dioxide 23 mmol/L (22-29) 02/17/24 02:18 Anion Gap 13.2 (5-19) 02/17/24 02:18 BUN 20 mg/dL (8-23) 02/17/24 02:18 Creatinine 1.3 mg/dL (0.5-0.9) H 02/17/24 02:18 GFR Calculation Not Reportable 02/17/24 02:18 Glucose 94 mg/dL (65-115) 02/17/24 02:18 POC Glucose 102 mg/dL (70-110) 02/17/24 11:34 Calculated Osmolality 296 mOsm/kg (285-295) H 02/17/24 02:18 Calcium 8.9 mg/dL (8.5-10.5) 02/17/24 02:18 Magnesium 2.0 mg/dL (1.7-2.3) 02/16/24 11:52 Iron 49 ug/dL (37-145) 02/16/24 02:47 TIBC 229 mcg/dl 02/16/24 02:47 % Saturation 21.3 % (20-50) 02/16/24 02:47 Unsat Iron Binding 180 ug/dL (112-347) 02/16/24 02:47 Ferritin 197 ng/mL (15-150) H 02/16/24 02:47 Total Bilirubin 0.2 mg/dL (0.15-1.2) 02/15/24 03:33 AST 18 U/L (0-32) 02/15/24 03:33 ALT 14 U/L (0-33) 02/15/24 03:33 Alkaline Phosphatase 48 U/L (35-105) 02/15/24 03:33 Creatine Kinase 60 U/L (26-192) 02/16/24 02:47 Troponin T Baseline 44 ng/L (0-10) H 02/13/24 22:21 Troponin T 120 Minute 52.95 ng/L (0-10) H 02/14/24 00:35 Delta Troponin T 8.95 ABS# (0-10) 02/14/24 00:35 Troponin T Hi Sens 6Hr 58.34 ng/L (0-10) H 02/14/24 04:17 Troponin T Hi Sens 6Hr Delta 14.34 ng/L (0-12) H* 02/14/24 04:17 Total Protein 6.5 g/dL (6.6-8.7) L 02/15/24 03:33 Albumin 3.7 g/dL (3.5-5.2) 02/15/24 03:33 Globulin 2.8 g/dL (1.3-4.6) 02/15/24 03:33 TSH 8.20 uIU/mL (0.27-4.20) H 02/15/24 03:33 Free T4 1.44 ng/dL (0.82-1.77) 02/15/24 03:33 Urine Color Yellow (Yellow) 02/13/24 23:04 Urine Appearance Clear (CLEAR) 02/13/24 23:04 Urine pH 5 (5-7) 02/13/24 23:04 Ur Specific [place] 1.005 (1.005-1.030) 02/13/24 23:04 Urine Protein Neg (Negative) 02/13/24 23:04 Urine Glucose (UA) 2+ (Normal) H 02/13/24 23:04 Urine Ketones Negative (Negative) 02/13/24 23:04 Urine Blood Neg (Negative) 02/13/24 23:04 Urine Nitrate Negative 02/13/24 23:04 Urine Bilirubin Neg (Negative) 02/13/24 23:04 Urine Urobilinogen Norm mg/dL (Negative) 02/13/24 23:04 Ur Leukocyte Esterase Negative (Negative) 02/13/24 23:04 Digoxin 0.3 ng/mL (0.6-1.2) L 02/16/24 02:47 A&P Assessment and plan (1) Ventricular tachycardia: Will continue on the IV amiodarone. The ICD was interrogated today. Patient had several episodes of ventricular tachycardia which were terminated with overdrive pacing (2) Atrial fibrillation with RVR: Patient has been having intermittent atrial fibrillation. Will consider electrical cardioversion, if she goes into sustained atrial fibrillation. (3) Atherosclerosis of coronary artery of [place] heart without angina pectoris: Patient was found to have around 50% gnosis in the right coronary artery. She apparently has no chest pain whatsoever. At this point, I do not see any reason to do an angiogram. Qualifiers: Coronary Disease-Associated Artery/Lesion type: [place] artery Qualified Code(s): I25.10 - Atherosclerotic heart disease of [place] coronary artery without angina pectoris (4) Right-sided extracranial carotid artery stenosis: Carotid duplex examination was performed today. Patient was found to have 50 to 69% stenosis on the right side and less than 50% stenosis on the left side Will continue on the current management for the time being (5) LV (left ventricular) mural thrombus: Patient is on long-term oral anticoagulation. This may be continued. Echocardiogram done yesterday revealed no definite thrombus. But the apex could not be visualized well (6) Ischemic cardiomyopathy: LV ejection fraction was found to be 34%. Patient advised to continue on the current management. Because of the LV dysfunction I may change the metoprolol to carvedilol 6.25 mg p.o. twice daily. Patient has not been on any Entresto-not clear whether she ever been tried on this. (7) ICD (implantable cardioverter-defibrillator), dual, in situ: The defibrillator appears to be functioning okay. Will do a full interrogation in the morning. Plan Her other problems are #1. History of CVA #2 abnormal kidney function-stable #3 history of rheumatoid arthritis #4 history of hypertension currently normotensive or intermittently hypotensive #6 dyslipidemia #7 history of congestive heart failure, currently compensated I contacted Dr. Barreto, the correspondence school teacher at the [facility] in [place] . Dr. Barreto also agreed with the amiodarone and electrical cardioversion, if necessary. If the patient remains stable, may be discharged home tomorrow and appointment with Dr. Barreto as an outpatient to consider repeat ablation. Patient on the clinical progress, further recommendations will be made Attestations Medical Necessity Statement*: Patient requires continued hospital stay for close monitoring and further management Coding Level of Care Code 67556 Diagnoses Ventricular tachycardia I47.20 Atrial fibrillation with RVR I48.91 Atherosclerosis of [place] coronary artery of [place] heart without angina pectoris I25.10 Coronary Disease-Associated Artery/Lesion type: [place] artery Right-sided extracranial carotid artery stenosis I65.21 LV (left ventricular) mural thrombus I51.3 Ischemic cardiomyopathy I25.5 ICD (implantable cardioverter-defibrillator), dual, in situ Z95.810
[2024-02-17] MEDS: amiodarone 150 MG/100 ML PREMIX 400 MG IV (17:04)
[2024-02-17 17:36] LABS: Glucose Point of Care 88 mg/dL (70-110)
--- NOTE | 2024-02-17 20:02 | P.PN_ITS ---
Subjective 2 Subjective: Feeling palpitations this morning. With A-fib with RVR episodes with recurrence and then persistence through the day. Additional episodes of V. tach. No chest pain. Vitals/I&O/Wt Last Vital Signs Temp 97.8 F 02/17/24 08:00 Pulse 65 02/17/24 16:00 Resp 13 02/17/24 16:00 BP 97/53 02/17/24 16:00 Pulse Ox 95 02/17/24 16:00 O2 Del Method Room Air 02/17/24 08:50 02/17/24 02/17/24 02/17/24 06:59 14:59 22:59 Intake Total 120 / 1680 360 / 360 191.75 / 551.75 Balance 120 / 1680 360 / 360 191.75 / 551.75 Weight last 48 hrs Weight 68.039 kg Weight 69.995 kg Physical Exam 2 Narrative: Accompanied by family. Const: COMMON NORMALS: patient oriented x3 and alert GENERAL APPEARANCE: c ooperative ORIENTATION/CONSCIOUSNESS: Yes awake HENMT: COMMON NORMALS: oropharynx normal Neck/C-Spine: COMMON NORMALS: no JVD Resp: COMMON NORMALS: normal respiratory effort and clear to auscultation bilaterally AUSCULTATION: clear to auscultation bilaterally Cardio: COMMON NORMALS: no JVD, regular rhythm, S1 normal heart sound present, S2 normal heart sound present and No murmurs present (Cardio) RATE: t achycardic RHYTHM: regular rhythm HEART SOUNDS: S1 normal heart sound present and S2 normal heart sound present GI: COMMON NORMALS: Normal to inspection, nondistended, normoactive bowel sounds present, Soft to palpation and non-tender PALPATION: Yes Soft to palpation Extremity: COMMON NORMALS: no joint enlargement and no pedal edema Neuro: COMMON NORMALS: patient oriented x3 and moves all extremities S ENSORIUM/ORIENTATION: Yes alert Skin: COMMON NORMALS: no rashes or lesions noted GENERAL SKIN EXAM: no rashes or lesions noted Data 02/17/24 02:18 02/17/24 02:18 A&P Assessment and plan (1) Atrial fibrillation with RVR: Additional episodes of A-fib with RVR overnight, then persistent A-fib with RVR towards the end of the night, morning, additional episodes of VT. Transferred to intensive care unit. Given dose of digoxin. Cardiology additionally started lidocaine drip. Discussed with her and family at bedside. Doing better towards the afternoon. Cardiology discontinue lidocaine. Per discussion with mixed crop and livestock farm worker, he spoke with her brush or broom cutter, recommendation is for outpatient follow-up, for now she is restarted on IV amiodarone for additional loading, continue together with oral. Reviewed vitals, CBC, BMP, cardiology note. Discussed with outpatient case manager. Discussed with overnight hospitalist. Echocardiogram with noted decrease in ejection fraction down to 35% from 45%. Unclear if may be secondary to tachycardia. Does have moderate troponin elevation 44 at 6 hours up to 2.3 with positive delta. No chest pain or pressure. May be secondary to tachycardia. Reviewed cardiology note, consider secondary to type II CO. Echocardiogram from June 2023 with diffuse hypokinesia of the mid and apical septum with LVEF of 45%. Underwent coronary angiogram in June 2023 which showed moderate RCA stenosis without any intervenable lesions. Low probability of PE given patient is chronically anticoagulated with Eliquis, will continue same. Hold Aldactone and valsartan currently no signs of CHF decompensation (2) S/P ablation of atrial fibrillation: Plan Anemia: Doing better today. Hemoglobin up to 11.2. Platelets normal. Requested Hemoccult. Increased PPI to twice daily for now. Reviewed iron studies. No suggestion of iron deficiency. Reassess blood counts. CRISTÓBAL: Mild CRISTÓBAL, creatinine up to 1.3. Reviewed CK, CK is okay. Digoxin level is okay. Reviewed UA. She is tolerating oral intake. On statin. Carotid artery disease: Carotid duplex with moderate heterogenous irregular plaque to the right bifurcation and proximal ICA suggesting 50 to 69% stenosis. Mild to moderate plaque on the left, less than 50% stenosis. Moderate diffuse plaque bilaterally. He is on Eliquis, continue oral anticoagulation monotherapy as per ACC consensus due to bleeding risk. Elevated TSH: TSH 8.2. Reviewed free T4, normal. Diabetes mellitus: Low-dose insulin sliding scale Attestations 2 Medical Necessity Statement*: Continue hospitalization for assessment management of A-fib with RVR, wide- complex tachycardia. Coding Level of Care Code Critical Care >/= 30 minutes Critical care time (in minutes): 40 The high probability of a clinically significant, sudden or life threatening deterioration, as referenced in this documentation, required my full and direct attention, intervention and personal management. The critical care time shown is in addition to time spent performing any reported separately billable procedures and includes the following: [x] Data and vital sign review and interpretation [x ] Patient assessment, examination and intervention [x] Medication orders and management [x] Patient/Family updates as able [x] Care Coordination and Documentation. Diagnoses Atrial fibrillation with RVR I48.91 S/P ablation of atrial fibrillation Z98.890; Z86.79
[2024-02-18] VITALS (38 sets, daily range): BP systolic 79–146; BP diastolic 45–77; PULSE 60–151; RESP 8–22; TEMP 36.2–36.6; O2SAT 86–98; BMI 26.5
--- NOTE | 2024-02-18 00:58 | PC.NURSE ---
Amiodarone: No decrease in rate at 6 hours. Continuing to run at 1mg/min per Dr. Meehan's orders.
[2024-02-18 04:56] LABS: Basophils % 0.4 %; Eosinophils # 0.1 10^3/uL (0.0-0.8); Eosinophils % 1.6 %; Hematocrit 37.5 % (36-47); Lymphocytes # 2.5 10^3/uL (0.8-4.8); Lymphocytes % 34.3 %; Mean Corpuscular HGB Conc 31.5 g/dL (30-55); Mean Corpuscular Hemoglobin 29.2 pg (27-33); Mean Corpuscular Volume 92.8 fl (85-98); Mean Platelet Volume 9.7 fL (7.4-10.4); Monocytes # 0.5 10^3/uL (0.2-0.9); Monocytes % 7.2 %; Neutrophils % 56.1 %; Nucleated Red Blood Cells % 0 %; Platelet Count 249 10^3/cmm (157-399); Red Blood Count 4.04 10^6/uL (3.85-5.65); Red Cell Distribution Width 13.9 % (12.1-15.1); White Blood Count 7.32 10^3/uL (3.29-11.43)
[2024-02-18 05:20] LABS: Anion Gap 14.7 (5-19); Blood Urea Nitrogen 23 mg/dL (8-23); Calcium 8.9 mg/dL (8.5-10.5); Carbon Dioxide 23 mmol/L (22-29); Chloride 108 mmol/L (98-107); Glucose 105 mg/dL (65-115); Osmolality Calculated 298 mOsm/kg (285-295); Potassium 3.7 mmol/L (3.5-5.1); Sodium 142 mmol/L (136-145)
[2024-02-18 05:21] LABS: Magnesium 1.7 mg/dL (1.7-2.3)
[2024-02-18 05:30] LABS: Creatinine Clr Calc Pharmacy 32.4924
[2024-02-18] MEDS: apixaban 5 mg Tablet PO ×2 (08:27→17:45)
[2024-02-18] MEDS: pantoprazole DR 40 mg Tablet PO ×2 (08:27→17:45)
[2024-02-18] MEDS: carvedilol 6.25 mg Tablet PO ×2 (08:27→17:45)
[2024-02-18] MEDS: atorvastatin 40 mg Tablet 80 MG PO (08:27)
[2024-02-18] MEDS: amiodarone 200 mg Tablet 400 MG PO ×2 (08:56→17:45)
--- NOTE | 2024-02-18 09:30 | P.PN_ITS ---
Subjective 2 Subjective: Patient had a pacemaker interrogation today with the [employer] rep. The ventricular tachycardia detection rate was lowered. Also the atrial ATP feature was turned on Patient has no chest pain or shortness of breath. Blood pressure has been fairly stable. No new symptoms. Medications: Medication Review Details: Current Medications Acetaminophen (Acetaminophen 325 Mg Tablet) 650 mg PO Q6H PRN PRN Reason: Mild/Mod Pain Or Temp >/= 101 Amiodarone HCl (Amiodarone 200 Mg Tablet) 400 mg PO BID JACK Last Admin: 02/18/24 08:56 Dose: 400 mg Apixaban (Apixaban 5 Mg Tablet) 5 mg PO BID JACK Last Admin: 02/18/24 08:27 Dose: 5 mg Atorvastatin Calcium (Atorvastatin 40 Mg Tablet) 80 mg PO DAILY JACK Last Admin: 02/18/24 08:27 Dose: 80 mg Carvedilol (Carvedilol 6.25 Mg Tablet) 6.25 mg PO BID JACK Last Admin: 02/18/24 08:27 Dose: 6.25 mg Digoxin (Digoxin 250 Mcg/Ml Inj 2 Ml) 125 mcg IVP ONCE JACK Glucagon (Glucagon 1 Mg/Ml Kit 1 Ml) 1 mg IM ONCE PRN; Protocol PRN Reason: Adult Acute Hypoglycemia Nursing Prot. Dextrose (D5w) 500 mls @ 0 mls/hr IV ONCE PRN; Protocol PRN Reason: Adult Acute Hypoglycemia Prot Dextrose (D10w) 125 mls @ 750 mls/hr IV PRN PRN; Protocol PRN Reason: Adult Acute Hypoglycemia Nursing Protocol Dextrose (D10w) 250 mls @ 1,000 mls/hr IV PRN PRN; Protocol PRN Reason: Adult Acute Hypoglycemia Nursing Protocol Norepinephrine Bitartrate (Levophed) 4 mg in 250 mls @ 0 mls/hr IV .Q0M PRN; Protocol PRN Reason: Hypotension Lidocaine HCl/Dextrose (Lidocaine Drip) 2,000 mg in 500 mls @ 15 mls/hr IV .Q24H JACK Last Infusion: 02/17/24 16:44 Dose: 0 mg/min, 0 mls/hr Amiodarone HCl/Dextrose (Nexterone) 360 mg in 200 mls @ 0 mls/hr IV .Q0M JACK; Protocol Last Admin: 02/18/24 05:23 Dose: 1 mg/min, 33.33 mls/hr Magnesium Sulfate/Dextrose (Magnesium Sulfate Premix) 1 gm in 100 mls @ 200 mls/hr IV ONCE ONE Stop: 02/18/24 09:57 Insulin Human Lispro (Insulin Lispro 100 Unit/1 Ml) 0 unit SUBCUT WM&BEDTIME JACK; Protocol Last Admin: 02/18/24 07:45 Dose: Not Given Ondansetron HCl (Ondansetron 2 Mg/Ml Sdv 2 Ml) 4 mg IVP Q8H PRN PRN Reason: vomiting, or N/V if npo Pantoprazole Sodium (Pantoprazole Dr 40 Mg Tablet) 40 mg PO BID JACK Last Admin: 02/18/24 08:27 Dose: 40 mg Vitals/I&O/Wt Last Vital Signs Temp 97.1 F L 02/18/24 07:47 Pulse 61 02/18/24 08:00 Resp 16 02/18/24 08:00 BP 88/52 02/18/24 08:00 Pulse Ox 96 02/18/24 08:00 O2 Del Method Room Air 02/18/24 04:30 02/17/24 02/18/24 02/18/24 22:59 06:59 14:59 Intake Total 221.75 / 581.75 395.536 / 977.286 240 / 240 Balance 221.75 / 581.75 395.536 / 977.286 240 / 240 Weight last 48 hrs Weight 149 lb 14.4 oz Weight 150 lb Physical Exam 2 Narrative: GENERAL: The patient is alert and oriented times three. Not in any acute distress. HEENT: No significant pallor, icterus or lymphadenopathy.Oral cavity: There are no mucous membrane lesions. NECK: Trachea appears to be central. No masses noted. No JVD or thyromegaly appreciated. RESPIRATORY: Chest is symmetrical. No intercostals muscle retraction or any accessory muscle activation. There is no chest wall tenderness. Breath sounds are heard bilaterally. No rales or rhonchi heard. No evidence of any consolidation. BREASTS: Deferred. HEART: The heart sounds are normal. No S3 or S4. Short systolic murmur in the lower sternal border. No diastolic murmurs.. No pericardial rub ABDOMEN: No vessel pulsations or distention. No tenderness. No organomegaly appreciated. Bowel sounds are normally heard. : Deferred. RECTAL: Deferred. LYMPHATIC: No lymphadenopathy noted in the neck. EXTREMITIES: Peripheral pulses are palpable but weak bilaterally. MUSCULOSKELETAL: No acute joint deformities or swelling SKIN: There are no significant rashes or ecchymosis NEUROPSYCHIATRIC: The patient is alert and oriented x3. Appears to be in a good mood. No tremors or rigidity noted. Data 02/18/24 04:30 02/18/24 04:30 Other Labs: Laboratory Last Values WBC 7.32 10^3/uL (3.29-11.43) 02/18/24 04:30 RBC 4.04 10^6/uL (3.85-5.65) 02/18/24 04:30 Hgb 11.80 g/dL (11.27-16.99) 02/18/24 04:30 Hct 37.5 % (36-47) 02/18/24 04:30 MCV 92.8 fl (85-98) 02/18/24 04:30 MCH 29.2 pg (27-33) 02/18/24 04:30 MCHC 31.5 g/dL (30-55) 02/18/24 04:30 RDW 13.9 % (12.1-15.1) 02/18/24 04:30 Plt Count 249 10^3/cmm (157-399) 02/18/24 04:30 MPV 9.7 fL (7.4-10.4) 02/18/24 04:30 Neut % (Auto) 56.1 % 02/18/24 04:30 Lymph % (Auto) 34.3 % 02/18/24 04:30 Sibley % (Auto) 7.2 % 02/18/24 04:30 Eos % (Auto) 1.6 % 02/18/24 04:30 Baso % (Auto) 0.4 % 02/18/24 04:30 Neut # (Auto) 4.10 10^3/uL (1.8-7.7) 02/18/24 04:30 Lymph # (Auto) 2.5 10^3/uL (0.8-4.8) 02/18/24 04:30 [place]y # (Auto) 0.5 10^3/uL (0.2-0.9) 02/18/24 04:30 Eos # (Auto) 0.1 10^3/uL (0.0-0.8) 02/18/24 04:30 Baso # (Auto) 0.0 10^3/uL (0.0-0.1) 02/18/24 04:30 Nucleated RBC % (auto) 0 % 02/18/24 04:30 Nucleated RBCs # 0.0 /100WBC 02/18/24 04:30 Sodium 142 mmol/L (136-145) 02/18/24 04:30 Potassium 3.7 mmol/L (3.5-5.1) 02/18/24 04:30 Chloride 108 mmol/L (98-107) H 02/18/24 04:30 Carbon Dioxide 23 mmol/L (22-29) 02/18/24 04:30 Anion Gap 14.7 (5-19) 02/18/24 04:30 BUN 23 mg/dL (8-23) 02/18/24 04:30 Creatinine 1.3 mg/dL (0.5-0.9) H 02/18/24 04:30 GFR Calculation Not Reportable 02/18/24 04:30 Glucose 105 mg/dL (65-115) 02/18/24 04:30 POC Glucose 88 mg/dL (70-110) 02/17/24 17:08 Calculated Osmolality 298 mOsm/kg (285-295) H 02/18/24 04:30 Calcium 8.9 mg/dL (8.5-10.5) 02/18/24 04:30 Magnesium 1.7 mg/dL (1.7-2.3) 02/18/24 04:30 Iron 49 ug/dL (37-145) 02/16/24 02:47 TIBC 229 mcg/dl 02/16/24 02:47 % Saturation 21.3 % (20-50) 02/16/24 02:47 Unsat Iron Binding 180 ug/dL (112-347) 02/16/24 02:47 Ferritin 197 ng/mL (15-150) H 02/16/24 02:47 Total Bilirubin 0.2 mg/dL (0.15-1.2) 02/15/24 03:33 AST 18 U/L (0-32) 02/15/24 03:33 ALT 14 U/L (0-33) 02/15/24 03:33 Alkaline Phosphatase 48 U/L (35-105) 02/15/24 03:33 Creatine Kinase 60 U/L (26-192) 02/16/24 02:47 Troponin T Baseline 44 ng/L (0-10) H 02/13/24 22:21 Troponin T 120 Minute 52.95 ng/L (0-10) H 02/14/24 00:35 Delta Troponin T 8.95 ABS# (0-10) 02/14/24 00:35 Troponin T Hi Sens 6Hr 58.34 ng/L (0-10) H 02/14/24 04:17 Troponin T Hi Sens 6Hr Delta 14.34 ng/L (0-12) H* 02/14/24 04:17 Total Protein 6.5 g/dL (6.6-8.7) L 02/15/24 03:33 Albumin 3.7 g/dL (3.5-5.2) 02/15/24 03:33 Globulin 2.8 g/dL (1.3-4.6) 02/15/24 03:33 TSH 8.20 uIU/mL (0.27-4.20) H 02/15/24 03:33 Free T4 1.44 ng/dL (0.82-1.77) 02/15/24 03:33 Urine Color Yellow (Yellow) 02/13/24 23:04 Urine Appearance Clear (CLEAR) 02/13/24 23:04 Urine pH 5 (5-7) 02/13/24 23:04 Ur Specific [place] 1.005 (1.005-1.030) 02/13/24 23:04 Urine Protein Neg (Negative) 02/13/24 23:04 Urine Glucose (UA) 2+ (Normal) H 02/13/24 23:04 Urine Ketones Negative (Negative) 02/13/24 23:04 Urine Blood Neg (Negative) 02/13/24 23:04 Urine Nitrate Negative 02/13/24 23:04 Urine Bilirubin Neg (Negative) 02/13/24 23:04 Urine Urobilinogen Norm mg/dL (Negative) 02/13/24 23:04 Ur Leukocyte Esterase Negative (Negative) 02/13/24 23:04 Digoxin 0.3 ng/mL (0.6-1.2) L 02/16/24 02:47 A&P Assessment and plan (1) Ventricular tachycardia: Will continue on the IV amiodarone. Once the IV infusion is finished, may continue on the p.o. amiodarone. He continues to remain stable, may be transferred to the telemetry floor (2) Atrial fibrillation with RVR: Currently remaining in sinus rhythm. Continue on the Eliquis. (3) Atherosclerosis of coronary artery of [place] heart without angina pectoris: Patient was found to have around 50% gnosis in the right coronary artery. She apparently has no chest pain whatsoever. At this point, I do not see any reason to do an angiogram. Qualifiers: Coronary Disease-Associated Artery/Lesion type: [place] artery Qualified Code(s): I25.10 - Atherosclerotic heart disease of [place] coronary artery without angina pectoris (4) Right-sided extracranial carotid artery stenosis: Carotid duplex examination was performed today. Patient was found to have 50 to 69% stenosis on the right side and less than 50% stenosis on the left side Will continue on the current management for the time being (5) LV (left ventricular) mural thrombus: Patient is on long-term oral anticoagulation. This may be continued. Echocardiogram done yesterday revealed no definite thrombus. But the apex could not be visualized well (6) Ischemic cardiomyopathy: LV ejection fraction was found to be 34%. May consider Entresto, if the systolic blood pressure stays in the normal range . (7) ICD (implantable cardioverter-defibrillator), dual, in situ: ICD interrogation as mentioned above. The function was found to be appropriate. Lipids were okay. Plan Her other problems are #1. History of CVA #2 abnormal kidney function-stable #3 history of rheumatoid arthritis #4 history of hypertension currently normotensive or intermittently hypotensive #6 dyslipidemia #7 history of congestive heart failure, currently compensated If she continues remain stable, may be transferred to a telemetry floor. Attestations 2 Medical Necessity Statement*: Possible discharge home tomorrow Coding Level of Care Code 59201 Diagnoses Ventricular tachycardia I47.20 Atrial fibrillation with RVR I48.91 Atherosclerosis of [place] coronary artery of [place] heart without angina pectoris I25.10 Coronary Disease-Associated Artery/Lesion type: [place] artery Right-sided extracranial carotid artery stenosis I65.21 LV (left ventricular) mural thrombus I51.3 Ischemic cardiomyopathy I25.5 ICD (implantable cardioverter-defibrillator), dual, in situ Z95.810
[2024-02-18] MEDS: magnesium sulfate premix 1 GM/100 ML PIGGYBACK IV (09:59)
[2024-02-18 12:34] LABS: Glucose Point of Care 87 mg/dL (70-110)
[2024-02-18 12:34] LABS: Glucose Point of Care 102 mg/dL (70-110)
[2024-02-18 12:34] LABS: Glucose Point of Care 113 mg/dL (70-110)
--- NOTE | 2024-02-18 17:20 | PC.NURSE ---
Patient transferred to [facility]
[2024-02-18 17:24] LABS: Glucose Point of Care 103 mg/dL (70-110)
--- NOTE | 2024-02-18 20:23 | P.PN_ITS ---
Subjective 2 Subjective: She reports she is doing well this morning. Denies chest pain or pressure. No trouble breathing. Heart rate has improved. She has discussed with cardiology that if everything remains in good order she may be able to return home tomorrow. Vitals/I&O/Wt Last Vital Signs Temp 97.9 F 02/18/24 20:00 Pulse 61 02/18/24 20:00 Resp 17 02/18/24 20:00 BP 95/47 02/18/24 20:00 Pulse Ox 97 02/18/24 20:00 O2 Del Method Room Air 02/18/24 20:00 02/18/24 02/18/24 02/18/24 06:59 14:59 22:59 Intake Total 395.536 / 977.286 900 / 900 Balance 395.536 / 977.286 900 / 900 Weight last 48 hrs Weight 67.993 kg Weight 68.039 kg Physical Exam 2 Narrative: Accompanied by family. Const: COMMON NORMALS: patient oriented x3 and alert GENERAL APPEARANCE: c ooperative ORIENTATION/CONSCIOUSNESS: Yes awake HENMT: COMMON NORMALS: oropharynx normal Neck/C-Spine: COMMON NORMALS: no JVD Resp: COMMON NORMALS: normal respiratory effort and clear to auscultation bilaterally AUSCULTATION: clear to auscultation bilaterally Cardio: COMMON NORMALS: no JVD, regular rhythm, S1 normal heart sound present, S2 normal heart sound present and No murmurs present (Cardio) RATE: t achycardic RHYTHM: regular rhythm HEART SOUNDS: S1 normal heart sound present and S2 normal heart sound present GI: COMMON NORMALS: Normal to inspection, nondistended, normoactive bowel sounds present, Soft to palpation and non-tender PALPATION: Yes Soft to palpation Extremity: COMMON NORMALS: no joint enlargement and no pedal edema Neuro: COMMON NORMALS: patient oriented x3 and moves all extremities S ENSORIUM/ORIENTATION: Yes alert Skin: COMMON NORMALS: no rashes or lesions noted GENERAL SKIN EXAM: no rashes or lesions noted Data 02/18/24 04:30 02/18/24 04:30 A&P Assessment and plan (1) Atrial fibrillation with RVR: Reviewed vitals, CBC, potassium, magnesium, creatinine. Heart rates have improved, converted to sinus rhythm. Sinus bradycardia. Reviewed cardiology note, discussed with veterinarian epidemiologist. Lidocaine has been discontinued. Amiodarone drip turned off. Continues on oral amiodarone. Possible discharge tomorrow if no further events. Discussed with upper caser. Mild hypomagnesemia 1.7, will give additional magnesium. Recheck level. Echocardiogram with decrease in ejection fraction down to 35% from 45%. Unclear if may be secondary to tachycardia. Does have moderate troponin elevation 44 at 6 hours up to 2.3 with positive delta. No chest pain or pressure. May be secondary to tachycardia. Per cardiology, considered secondary to type II CO. Echocardiogram from June 2023 with diffuse hypokinesia of the mid and apical septum with LVEF of 45%. Underwent coronary angiogram in June 2023 which showed moderate RCA stenosis without any intervenable lesions. Low probability of PE given patient is chronically anticoagulated with Eliquis, will continue same. Hold Aldactone and valsartan currently no signs of CHF decompensation (2) S/P ablation of atrial fibrillation: Plan Anemia: Hemoglobin remained steady just under 12.. Platelets normal. Requested Hemoccult. Reviewed, so far uncollected. Increased PPI to twice daily for now. Reviewed iron studies. No suggestion of iron deficiency. Reassess blood counts. CRISTÓBAL: Mild CRISTÓBAL, creatinine up to 1.3. So far unchanged. Recheck kidney function. CK is okay. Digoxin level is okay. Reviewed UA. She is tolerating oral intake. On statin. Carotid artery disease: Carotid duplex with moderate heterogenous irregular plaque to the right bifurcation and proximal ICA suggesting 50 to 69% stenosis. Mild to moderate plaque on the left, less than 50% stenosis. Moderate diffuse plaque bilaterally. He is on Eliquis, continue oral anticoagulation monotherapy as per ACC consensus due to bleeding risk. Elevated TSH: TSH 8.2. Reviewed free T4, normal. Diabetes mellitus: Low-dose insulin sliding scale Attestations 2 Medical Necessity Statement*: Continue hospitalization for optimization of control of difficult to control atrial fibrillation with RVR. Diagnoses Atrial fibrillation with RVR I48.91 S/P ablation of atrial fibrillation Z98.890; Z86.79
[2024-02-18 20:24] LABS: Glucose Point of Care 142 mg/dL (70-110)
[2024-02-19] VITALS (7 sets, daily range): BP systolic 116–153; BP diastolic 61–80; PULSE 58–74; RESP 17–18; TEMP 36.4–36.6; O2SAT 95–98
[2024-02-19 06:23] LABS: Glucose Point of Care 94 mg/dL (70-110)
[2024-02-19 06:34] LABS: Blood Urea Nitrogen 24 mg/dL (8-23); Calcium 8.9 mg/dL (8.5-10.5); Carbon Dioxide 23 mmol/L (22-29); Chloride 110 mmol/L (98-107); Glucose 93 mg/dL (65-115); Magnesium 1.9 mg/dL (1.7-2.3); Osmolality Calculated 302 mOsm/kg (285-295); Sodium 144 mmol/L (136-145)
[2024-02-19 06:35] LABS: Creatinine Clr Calc Pharmacy 30.1621
--- NOTE | 2024-02-19 08:08 | P.PN_ITS ---
Subjective 2 Subjective: Evonne has had an uneventful night. She has been in sinus rhythm for the last day and a half. She states she is ready to go home today. She was admitted on the with rapid atrial fibrillation. She was originally treated with Cardizem which dropped her blood pressure. It was switched over to amiodarone and digoxin. Repeat echo revealed her ejection fraction be 34%. This is a little less than it was previously. She was switched over to amiodarone by mouth, transferred to the floor and then had more arrhythmias. She was taken back down to the ICU, put back on IV amiodarone and then was eventually switched over to p.o. meds again. She has now been on the floor for a couple of days. Yesterday her device was interrogated and the ventricular tachycardia detection rate was decreased. She has a complicated history which includes a previous myocardial infarction and an old apical thrombus with a cardiomyopathy. Her last angiogram however revealed nonobstructive coronary disease. She was in [place] for an extended period of time a few months ago after having ventricular tachycardia and congestive heart failure. She had an ablation for ventricular tachycardia. She developed acute kidney injury and had episodes of congestive heart failure and flash pulmonary edema. A defibrillator was placed. She also has a history of a stroke, dyslipidemia, hypertension, prior tobacco abuse and is chronically on Eliquis. Today she states she is ready to go home. Apparently she has been in contact with the electrophysiology office in [place] and has arranged for a follow- up. Vitals/I&O/Wt Last Vital Signs Temp 97.9 F 02/19/24 04:00 Pulse 74 02/19/24 06:00 Resp 17 02/19/24 04:00 BP 116/65 02/19/24 04:00 Pulse Ox 97 02/19/24 04:00 O2 Del Method Room Air 02/19/24 04:00 02/18/24 02/19/24 02/19/24 22:59 06:59 14:59 Intake Total 240 / 1140 240 / 1380 Balance 240 / 1140 240 / 1380 Weight last 48 hrs Weight 149 lb Weight 149 lb 14.4 oz Physical Exam 2 Narrative: GENERAL: In general she looks and feels well HEENT: Exam within normal limits. NECK: Supple without jugular vein distention. The carotid upstroke is normal without bruits. BACK: Exam normal. LUNGS: Clear. HEART: Regular rate and rhythm. ABDOMEN: Benign without organomegaly or tenderness. EXTREMITIES: No edema. NEUROLOGIC: Exam normal. SKIN: Unremarkable. Data 02/18/24 04:30 02/19/24 05:20 A&P Assessment and plan (1) CAD (coronary artery disease): (2) Myocardial infarction: (3) Stented coronary artery: (4) Hypertension: Qualifiers: Hypertension type: primary hypertension Qualified Code(s): I10 - Essential (primary) hypertension (5) LV (left ventricular) mural thrombus: (6) Ischemic cardiomyopathy: (7) Smoking: (8) Cardiac arrhythmia: (9) Supraventricular tachycardia: (10) Wide-complex tachycardia: (11) Atrial fibrillation with RVR: (12) ICD (implantable cardioverter-defibrillator), dual, in situ: (13) Ventricular tachycardia: Plan She may go home today. She should go home on Eliquis 5 mg twice a day, statin, amiodarone 400 mg once daily for a week and then 200 mg daily, carvedilol 3.125 mg twice a day. She has an appointment with the oil program compliance specialist in [place] within a couple weeks. Attestations 2 Medical Necessity Statement*: Discharge home and High Time for a total of 45 minutes, includes reviewing past or interval history, examining/interviewing patient, counseling patient/family/other support, updating patient/family/other support, discussing plan of care with staff, communicating with other healthcare providers and documenting encounter Diagnoses CAD (coronary artery disease) I25.10 Myocardial infarction I21.9 Stented coronary artery Z95.5 Primary hypertension I10 Hypertension type: primary hypertension LV (left ventricular) mural thrombus I51.3 Ischemic cardiomyopathy I25.5 Smoking F17.200 Cardiac arrhythmia I49.9 Supraventricular tachycardia I47.10 Wide-complex tachycardia R00.0 Atrial fibrillation with RVR I48.91 ICD (implantable cardioverter-defibrillator), dual, in situ Z95.810 Ventricular tachycardia I47.20
[2024-02-19] MEDS: pantoprazole DR 40 mg Tablet PO (10:18)
[2024-02-19] MEDS: carvedilol 3.125 mg Tablet PO (10:18)
[2024-02-19] MEDS: atorvastatin 40 mg Tablet 80 MG PO (10:18)
[2024-02-19] MEDS: amiodarone 200 mg Tablet 400 MG PO (10:18)
[2024-02-19] MEDS: apixaban 5 mg Tablet PO (10:18)
--- NOTE | 2024-02-19 10:33 | PC.NURSE ---
Patient does not want SCDs on due to up walking around in room
--- NOTE | 2024-02-19 10:52 | PC.SOCIAL ---
IMM Updated Updated pt on IMM. No questions voiced. Provided pt a copy. Initialed, dated, & timed copy in chart.
--- NOTE | 2024-02-19 12:38 | PC.NURSE ---
Discussed discharge instructions with patient and son. Discussed medications and changes. New medication, amiodarone to take 400 mg PO for 1 week then cut back to 200mg PO daily. Coreg changed to half a tablet at 3.125 mg twice daily. Went over follow up visits with patient. Verbalized understanding.
--- NOTE | 2024-02-19 14:43 | PM.DCS ---
Discharge Providers Date of Admission: 02/14/24 00:11 Date of Discharge: February 19, 2024 Attending Provider at Admission: Savanna Nicole MD Attending Provider at Discharge: Jose King Primary Care Provider: Shannan Rios MD Diagnoses at Discharge Discharge Diagnosis (1) CAD (coronary artery disease): Status: Acute (2) Myocardial infarction: Status: Acute (3) Stented coronary artery: Status: Acute (4) Hypertension: Status: Acute Qualifiers: Hypertension type: primary hypertension Qualified Code(s): I10 - Essential (primary) hypertension (5) LV (left ventricular) mural thrombus: Status: Acute (6) Ischemic cardiomyopathy: Status: Acute (7) Smoking: Status: Acute (8) Cardiac arrhythmia: Status: Acute (9) Supraventricular tachycardia: Status: Acute (10) Wide-complex tachycardia: Status: Acute (11) Atrial fibrillation with RVR: Status: Acute (12) ICD (implantable cardioverter-defibrillator), dual, in situ: Status: Acute (13) Ventricular tachycardia: Status: Acute Reason for Visit Reason for Visit: odd heart rhythms high hr has defibulator Hospital Course Hospital Course Pleasant 78-year-old lady with history of CAD, IA, ischemic cardiomyopathy, multiple CVA, LV apical thrombus, on long-term anticoagulation, was admitted for assessment management after presenting with palpitations, was found to have tachycardia, heart rates 150s-160s, atrial fibrillation with RVR. Initially concern for STEMI, reviewed by cardiology. Started on Cardizem and received IV metoprolol, with improvement in heart rate, but with hypotension, Cardizem was discontinued. She was initiated on amiodarone infusion. Received a dose of digoxin. Her home antihypertensives were held. Pacemaker check was performed and she was assessed by cardiology. Angiogram back in June last year did not reveal any revascularizable lesions. She has history of carotid stenosis. Prior echocardiogram here revealed ejection fraction around 45%. During current admission Limited echo showed EF 34%, severe diffuse hypokinesia of LV apex, moderate hypokinesia of other segments some echodensities in the LV apex, may suggest calcified structures. Moderate biatrial enlargement. After initial improvement in atrial fibrillation with RVR was transitioned over to oral amiodarone, moved to medical surgical floor, there she had additional episodes of wide-complex tachycardia, most of which were later determined to be overdrive pacing by pacemaker, however, she did again develop A-fib with RVR, heart rates up to 160s, with additional runs of wide-complex tachycardia despite initiation of metoprolol, was transferred back to intensive care unit where she was treated with lidocaine drip, then resumed on amiodarone infusion for additional loading with continued oral dose. Rhythm converted back to sinus bradycardia, continues on amiodarone, and she and cardiology also discussed her case with her EP in [place] where she is going to follow-up for an appointment after discharge. During hospitalization she was also noted to mild anemia, Hemoccult was requested but there was no occasion to collected. Her hemoglobin normalized. Normocytic. Without evidence of iron deficiency. Please follow-up anemia. As per discussion with her she is also noted to have some acute kidney injury, creatinine on presentation was 1.2, today 1.4, and will need additional follow-up for assessment of return back to prior or new baseline. Due to this for now she is asked not to continue Jardiance, spironolactone, valsartan, until reassessment and consideration whether these medications are safe to resume/needed at that time. She is otherwise doing much better, was assessed by cardiology who approved her wish to return home with continued oral amiodarone, carvedilol which was decreased slightly and dose to 3.125 to avoid hypotension, and Eliquis. As per discussion with her follow-up also with regards to amiodarone risks and related complications, monitoring for any complications in her eyes, thyroid, lungs, liver, and long-term she will be speaking with her doctors about considering alternative options. Physical Exam Const: COMMON NORMALS: patient oriented x3 and alert GENERAL APPEARANCE: cooperative ORIENTATION/CONSCIOUSNESS: Yes awake HENMT: COMMON NORMALS: oropharynx normal Neck/C-Spine: COMMON NORMALS: no JVD Resp: COMMON NORMALS: normal respiratory effort and clear to auscultation bilaterally AUSCULTATION: clear to auscultation bilaterally Cardio: COMMON NORMALS: no JVD, regular rhythm, S1 normal heart sound present, S2 normal heart sound present and No murmurs present (Cardio) RATE: tachycardic RHYTHM: regular rhythm HEART SOUNDS: S1 normal heart sound present and S2 normal heart sound present GI: COMMON NORMALS: Normal to inspection, nondistended, normoactive bowel sounds present, Soft to palpation and non-tender PALPATION: Yes Soft to palpation Extremity: COMMON NORMALS: no joint enlargement and no pedal edema Neuro: COMMON NORMALS: patient oriented x3 and moves all extremities SENSORIUM/ORIENTATION: Yes alert Skin: COMMON NORMALS: no rashes or lesions noted GENERAL SKIN EXAM: no rashes or lesions noted Discharge Data Studies Completed and Pending Completed Studies During Hospitalization Category Date Time Status XR chest 1V portable [id number] Stat Exams 02/13/24 22:16 Completed CV. echo limited [id number] Routine Ultrasound 02/14/24 09:38 Completed US carotid duplex bilateral [CV carotid duplex BI* Ultrasound 02/15/24 10:05 Completed [id number]] Routine Radiology Impressions Chest X-Ray 02/13/24 22:16 IMPRESSION: No acute cardiopulmonary disease. Laboratory Results WBC 7.32 10^3/uL (3.29-11.43) 02/18/24 04:30 RBC 4.04 10^6/uL (3.85-5.65) 02/18/24 04:30 Hgb 11.80 g/dL (11.27-16.99) 02/18/24 04:30 Hct 37.5 % (36-47) 02/18/24 04:30 MCV 92.8 fl (85-98) 02/18/24 04:30 MCH 29.2 pg (27-33) 02/18/24 04:30 MCHC 31.5 g/dL (30-55) 02/18/24 04:30 RDW 13.9 % (12.1-15.1) 02/18/24 04:30 Plt Count 249 10^3/cmm (157-399) 02/18/24 04:30 MPV 9.7 fL (7.4-10.4) 02/18/24 04:30 Neut % (Auto) 56.1 % 02/18/24 04:30 Lymph % (Auto) 34.3 % 02/18/24 04:30 [place] % (Auto) 7.2 % 02/18/24 04:30 Eos % (Auto) 1.6 % 02/18/24 04:30 Baso % (Auto) 0.4 % 02/18/24 04:30 Neut # (Auto) 4.10 10^3/uL (1.8-7.7) 02/18/24 04:30 Lymph # (Auto) 2.5 10^3/uL (0.8-4.8) 02/18/24 04:30 [place] # (Auto) 0.5 10^3/uL (0.2-0.9) 02/18/24 04:30 Eos # (Auto) 0.1 10^3/uL (0.0-0.8) 02/18/24 04:30 Baso # (Auto) 0.0 10^3/uL (0.0-0.1) 02/18/24 04:30 Nucleated RBC % (auto) 0 % 02/18/24 04:30 Nucleated RBCs # 0.0 /100WBC 02/18/24 04:30 Sodium 144 mmol/L (136-145) 02/19/24 05:20 Potassium 4.0 mmol/L (3.5-5.1) 02/19/24 05:20 Chloride 110 mmol/L (98-107) H 02/19/24 05:20 Carbon Dioxide 23 mmol/L (22-29) 02/19/24 05:20 Anion Gap 15.0 (5-19) 02/19/24 05:20 BUN 24 mg/dL (8-23) H 02/19/24 05:20 Creatinine 1.4 mg/dL (0.5-0.9) H 02/19/24 05:20 GFR Calculation Not Reportable 02/19/24 05:20 Glucose 93 mg/dL (65-115) 02/19/24 05:20 POC Glucose 94 mg/dL (70-110) 02/19/24 06:19 Calculated Osmolality 302 mOsm/kg (285-295) H 02/19/24 05:20 Calcium 8.9 mg/dL (8.5-10.5) 02/19/24 05:20 Magnesium 1.9 mg/dL (1.7-2.3) 02/19/24 05:20 Iron 49 ug/dL (37-145) 02/16/24 02:47 TIBC 229 mcg/dl 02/16/24 02:47 % Saturation 21.3 % (20-50) 02/16/24 02:47 Unsat Iron Binding 180 ug/dL (112-347) 02/16/24 02:47 Ferritin 197 ng/mL (15-150) H 02/16/24 02:47 Total Bilirubin 0.2 mg/dL (0.15-1.2) 02/15/24 03:33 AST 18 U/L (0-32) 02/15/24 03:33 ALT 14 U/L (0-33) 02/15/24 03:33 Alkaline Phosphatase 48 U/L (35-105) 02/15/24 03:33 Creatine Kinase 60 U/L (26-192) 02/16/24 02:47 Troponin T Baseline 44 ng/L (0-10) H 02/13/24 22:21 Troponin T 120 Minute 52.95 ng/L (0-10) H 02/14/24 00:35 Delta Troponin T 8.95 ABS# (0-10) 02/14/24 00:35 Troponin T Hi Sens 6Hr 58.34 ng/L (0-10) H 02/14/24 04:17 Troponin T Hi Sens 6Hr Delta 14.34 ng/L (0-12) H* 02/14/24 04:17 Total Protein 6.5 g/dL (6.6-8.7) L 02/15/24 03:33 Albumin 3.7 g/dL (3.5-5.2) 02/15/24 03:33 Globulin 2.8 g/dL (1.3-4.6) 02/15/24 03:33 TSH 8.20 uIU/mL (0.27-4.20) H 02/15/24 03:33 Free T4 1.44 ng/dL (0.82-1.77) 02/15/24 03:33 Urine Color Yellow (Yellow) 02/13/24 23:04 Urine Appearance Clear (CLEAR) 02/13/24 23:04 Urine pH 5 (5-7) 02/13/24 23:04 Ur Specific [place] 1.005 (1.005-1.030) 02/13/24 23:04 Urine Protein Neg (Negative) 02/13/24 23:04 Urine Glucose (UA) 2+ (Normal) H 02/13/24 23:04 Urine Ketones Negative (Negative) 02/13/24 23:04 Urine Blood Neg (Negative) 02/13/24 23:04 Urine Nitrate Negative 02/13/24 23:04 Urine Bilirubin Neg (Negative) 02/13/24 23:04 Urine Urobilinogen Norm mg/dL (Negative) 02/13/24 23:04 Ur Leukocyte Esterase Negative (Negative) 02/13/24 23:04 Digoxin 0.3 ng/mL (0.6-1.2) L 02/16/24 02:47 Vitals Last Vital Signs Temp 97.6 F 02/19/24 11:45 Pulse 58 L 02/19/24 11:45 Resp 18 02/19/24 11:45 BP 153/80 02/19/24 11:45 Pulse Ox 95 02/19/24 11:45 O2 Del Method Room Air 02/19/24 11:40 Discharge Plan Discharge Patient Disposition: Home Condition: Stable Prescriptions: New Pacerone 200 mg Tablet See Rx Instructions .ROUTE .COMPLEX Qty: 90 0RF Rx Instructions: 400mg daily for 1 week, then 200mg daily. Continued Eliquis 5 mg tablet 5 mg PO BID Qty: 180 3RF rosuvastatin 20 mg tablet 20 mg PO DAILY nitroglycerin [Nitrostat] 0.4 mg Tablet, Sublingual 0.4 mg SUBLINGUAL Q5M PRN (Reason: Chest Pain) Rx Instructions: do not exceed 3 doses per episode folic acid 1 mg tablet 1 mg PO DAILY Changed carvedilol 6.25 mg tablet 3.125 mg PO BID Qty: 90 0RF Rx Instructions: must administer with a meal/food Discontinued Jardiance 10 mg tablet 10 mg PO DAILY valsartan 40 mg tablet 40 mg PO BID spironolactone 25 mg tablet 25 mg PO DAILY Discharge Orders: Discharge Order (Routine); Ordered 02/19/24 Ordered By: Jose King Referrals: Shannan Rios MD [Primary Care Provider] - 02/19/24 1:45 pm Discharge Diet: Cardiac Patient Instructions: Amiodarone (By mouth), Supraventricular Tachycardia (ED), Opioid Safety, Pain Management Activity Restrictions/Additional Instructions: Please follow-up with electrophysiology. Continue amiodarone 400 mg once a day for 1 week, then switch over to 200 mg daily. Carvedilol is decreased to 3.125 mg twice a day. Please hold empagliflozin, spironolactone, valsartan for now due to mild acute kidney injury, creatinine is up to 1.4. Avoid any NSAIDs or any other medications that could contribute and follow-up with your primary doctor for reassessment of kidney function and electrolytes. Please follow-up with your primary doctor regarding mild anemia. In about under the please have your doctor follow-up your thyroid function in about 3 to 4 weeks, your TSH level was slightly high at 8.2 although free T4 was normal. Continue optimization of cardiovascular risk factors. Your carotid duplex did show moderate irregular plaque in the right carotid artery, with 50 to 69% stenosis. Mild to moderate plaque was seen on the left with less than 50% stenosis. Please have your primary doctor follow-up regarding carotid disease. Discharge Attestations Time Spent in Discharge Care*: greater than 30 min Quality Metrics Clinical Quality Measures [ No reported AMI, CVA or VTE this stay] Coding Level of Care Code 65948 Total time (in minutes) for Discharge: 45 Diagnoses CAD (coronary artery disease) I25.10 Myocardial infarction I21.9 Stented coronary artery Z95.5 Primary hypertension I10 Hypertension type: primary hypertension LV (left ventricular) mural thrombus I51.3 Ischemic cardiomyopathy I25.5 Smoking F17.200 Cardiac arrhythmia I49.9 Supraventricular tachycardia I47.10 Wide-complex tachycardia R00.0 Atrial fibrillation with RVR I48.91 ICD (implantable cardioverter-defibrillator), dual, in situ Z95.810 Ventricular tachycardia I47.20
== END 2024-02-19 11:30 | disposition home or self-care (01) | DRG 309 ==
LOC: ER 02-14 00:01 → ICU 02-14 00:12 → MEDSURG 02-15 11:02 → ICU 02-17 08:41 → MEDSURG 02-18 17:20
PROVIDERS: Admitting Provider Student in an Organized Health Care Education/Training Program; Emergency Provider Emergency Medicine; PCP Internal Medicine; Visit Provider Internal Medicine
DX: I48.20 Chronic atrial fibrillation, unspecified (principal); N17.9 Acute kidney failure, unspecified; R00.0 Tachycardia, unspecified; Z95.5 Presence of coronary angioplasty implant and graft; I25.10 Atherosclerotic heart disease of native coronary artery without angina pectoris; I10 Essential (primary) hypertension; Z87.891 Personal history of nicotine dependence; Z95.810 Presence of automatic (implantable) cardiac defibrillator; Z79.01 Long term (current) use of anticoagulants; E83.42 Hypomagnesemia; Z86.73 Personal history of transient ischemic attack (TIA), and cerebral infarction without residual deficits; E11.9 Type 2 diabetes mellitus without complications; Z79.84 Long term (current) use of oral hypoglycemic drugs; D64.9 Anemia, unspecified; I51.3 Intracardiac thrombosis, not elsewhere classified; E78.5 Hyperlipidemia, unspecified; I25.5 Ischemic cardiomyopathy; I65.21 Occlusion and stenosis of right carotid artery
CPT/HCPCS: 36415; 36416; 71045; 80048; 80053; 80162; 81003; 82550; 82728; 82962; 83540; 83550; 83735; 84439; 84443; 84484; 85025; 93005; 93308; 93880; 96365; 96374; 96375; 96376; 99285; A4222; J0283; J1160; J2001; J3475; J3490; J7030

== ENCOUNTER → 2024-02-26 10:23 | Outpatient (BNVA) | payer MEDICARE, BC, SELFPAY | PROVIDERS: PCP Internal Medicine; Visit Provider Nurse Practitioner Family | DX: I25.10 Atherosclerotic heart disease of native coronary artery without angina pectoris (principal); I10 Essential (primary) hypertension; I48.91 Unspecified atrial fibrillation; Z87.891 Personal history of nicotine dependence; R94.31 Abnormal electrocardiogram [ECG] [EKG] | CPT/HCPCS: 93005; 99214 ==

== ENCOUNTER → 2024-08-03 14:11 | Outpatient (BNVA) | payer MEDICARE, BC, SELFPAY | PROVIDERS: PCP Internal Medicine; Visit Provider Internal Medicine Cardiovascular Disease | DX: I25.10 Atherosclerotic heart disease of native coronary artery without angina pectoris (principal); I25.5 Ischemic cardiomyopathy; Z95.810 Presence of automatic (implantable) cardiac defibrillator; I51.3 Intracardiac thrombosis, not elsewhere classified; I10 Essential (primary) hypertension; Z98.890 Other specified postprocedural states; Z86.79 Personal history of other diseases of the circulatory system; I47.20 Ventricular tachycardia, unspecified; Z87.891 Personal history of nicotine dependence | CPT/HCPCS: 99214 ==

== ENCOUNTER 2025-05-25 12:00 | Outpatient (RCR) | payer MEDICARE, BC, SELFPAY | END 2025-06-18 23:59 | disposition home or self-care (01) | LOC: CR 12:00 | PROVIDERS: PCP Internal Medicine; Visit Provider Internal Medicine | DX: I50.9 Heart failure, unspecified (principal) | CPT/HCPCS: 93798 ==

== ENCOUNTER 2025-06-19 13:11 | Outpatient (RCR) | payer MEDICARE, BC, SELFPAY | END 2025-07-18 23:59 | disposition home or self-care (01) | LOC: CR 13:11 | PROVIDERS: PCP Internal Medicine; Visit Provider Internal Medicine | DX: I50.9 Heart failure, unspecified (principal) | CPT/HCPCS: 93798 ==

== ENCOUNTER → 2025-07-29 12:51 | Outpatient (BNVA) | payer MEDICARE, BC, SELFPAY | PROVIDERS: PCP Internal Medicine; Visit Provider Internal Medicine Cardiovascular Disease | DX: I47.20 Ventricular tachycardia, unspecified (principal); I42.8 Other cardiomyopathies; I51.3 Intracardiac thrombosis, not elsewhere classified; I48.20 Chronic atrial fibrillation, unspecified; Z79.01 Long term (current) use of anticoagulants; Z95.810 Presence of automatic (implantable) cardiac defibrillator; Z86.73 Personal history of transient ischemic attack (TIA), and cerebral infarction without residual deficits; Z87.891 Personal history of nicotine dependence; I25.2 Old myocardial infarction; I49.9 Cardiac arrhythmia, unspecified; I25.10 Atherosclerotic heart disease of native coronary artery without angina pectoris; R06.02 Shortness of breath | CPT/HCPCS: 99214 ==

== ENCOUNTER 2025-08-13 12:06 | Outpatient (CLI) | payer MEDICARE, BC, SELFPAY ==
--- NOTE | 2025-08-13 12:12 | US_ITS ---
WS: [id number] THYROID ULTRASOUND HISTORY: HYPERTHYROIDISM COMPARISON: None available. Right lobe: 1.3 cm x 2.1 cm x 5.0 cm (w x ap x l). Volume: 6.4 cm3. Enlarged heterogeneous lobulated thyroid. There are few small cystic areas scattered throughout. No discrete mass. There is very minimal increased vascularity. Left lobe: 1.4 cm x 2.1 cm x 4.6 cm (w x ap x l). Volume: 6.5 cm3. Mildly heterogeneous nodular and lobulated thyroid. Spongiform nodule in the mid thyroid measures 0.4 x 0.7 x 0.7 cm. No increased vascularity. Isthmus: 0.2 cm. US/US thyroid 14782 IMPRESSION: 1. Mild thyroid enlargement with heterogeneous gland. No solid nodule. 2. TI-RADS 2; no biopsy or follow-up necessary. Spongiform nodule mid LEFT thy roid.
== END 2025-08-13 12:07 | disposition home or self-care (01) ==
LOC: RAD 12:07
PROVIDERS: PCP Internal Medicine; Visit Provider Internal Medicine
DX: E05.90 Thyrotoxicosis, unspecified without thyrotoxic crisis or storm (principal); E04.9 Nontoxic goiter, unspecified
CPT/HCPCS: 76536